=== PATIENT | male | born 1975 | race Two or more races ===

== ENCOUNTER → 2021-05-28 10:08 | Outpatient (BNVA) | payer OTHER, SELFPAY | PROVIDERS: PCP Physician Assistant; Visit Provider Psychiatry & Neurology Neurology ==

== ENCOUNTER → 2021-06-02 12:51 | Outpatient (BNVA) | payer OTHER, SELFPAY | PROVIDERS: PCP Physician Assistant; Visit Provider Nurse Practitioner Family | DX: E23.6 Other disorders of pituitary gland (principal); R51.9 Headache, unspecified; G89.29 Other chronic pain; R06.83 Snoring; R40.0 Somnolence; I10 Essential (primary) hypertension; E78.00 Pure hypercholesterolemia, unspecified; B20 Human immunodeficiency virus [HIV] disease; F41.8 Other specified anxiety disorders; Z68.32 Body mass index [BMI] 32.0-32.9, adult; Z79.899 Other long term (current) drug therapy | CPT/HCPCS: 99202 ==

== ENCOUNTER → 2021-06-28 08:42 | Outpatient (REF) | payer OTHER, SELFPAY | LOC: HO.SL 08:42 | PROVIDERS: PCP Physician Assistant; Visit Provider Nurse Practitioner Family | DX: Z13.89 Encounter for screening for other disorder (principal) ==

== ENCOUNTER → 2021-08-19 09:40 | Outpatient (REF) | payer OTHER, SELFPAY | LOC: HO.SL 09:40 | PROVIDERS: PCP Physician Assistant; Visit Provider Nurse Practitioner Family | DX: R06.83 Snoring (principal); R40.0 Somnolence | CPT/HCPCS: 95806 ==

== ENCOUNTER → 2022-06-06 08:45 | Outpatient (BNVA) | payer OTHER, SELFPAY | PROVIDERS: PCP Physician Assistant; Visit Provider Nurse Practitioner Family | DX: E23.6 Other disorders of pituitary gland (principal); R51.9 Headache, unspecified; G89.29 Other chronic pain | CPT/HCPCS: 99212 ==

== ENCOUNTER 2022-11-29 08:44 | Outpatient (AMB) | payer MEDICAID, SELFPAY ==
--- NOTE | 2022-11-29 08:47 | A.OFFVIS_ITS ---
Intake Vital Signs 11/29/22 08:50 Weight 214 lb 4 oz BP 130/62 Blood Pressure Location Rt brachial Position Sitting Pulse 83 Pulse Source Pulse Oximeter Pulse Oximetry (%) 96 Oxygen Delivery Method Room Air Intake Visit Reasons: Follow up Intake Note: F/U Pituitary Nodules Water Resource Project Manager Required: Yes Water Resource Project Manager Name: Shaunna Valera Allergies No Known Allergies Allergy (Verified 11/29/22 08:48) HPI HPI Comments History of Present Illness Details 47 y/o male patient presents for follow up visit for pituitary gland cyst headache and sleep study. MRI of brain w+wo contrast on 03/25/21 revealed 1 cm complex cystic lesion in the left upper sella/suprasellar cistern, inseparable from the infundibulum and superior aspect of the pituitary gland, unchanged in size since 09/08/20. Pt's repeat brain MRI is scheduled on 12/01/22. Pt reports he still has occipital pressure headache but the frequency has improved to 1-2 /week and it is more manageable. He takes gabapentin 300 mg BID, and also takes Tylenol 500mg, 4 tabs a day to manage his joint pain. He has occasional blurry vision and nausea but they are not associated with headache. He had a left eye catarlact surgery done, but his blurred vision has not improved, stating that his left eye is more blurry. The home sleep study result was reviewed. The total AHI was 3 and oxygen philip was 80%. He states that he could not sleep well during the sleep study, wakes up frequently. PSG sleep study scheduled but [place] was in [place]. He did not reschedule for sleep study yet. Pt denies weakness, feeling cold, or voiding problems.?? PFSH Medical History Anxiety Asthma Depressed Gout High blood pressure High cholesterol HIV (human immunodeficiency virus infection) Pain aggravated by anxiety Surgical History H/O foot surgery Family History Sister Colon cancer Intestines cancer Social History (Updated 11/29/22 @ 08:50 by Zena Castañeda CMA) Alcohol intake: current Patient Tobacco Use Status: Never used Tobacco Review of Systems Const All systems reviewed & are unremarkable except as noted in HPI and below Physical Exam Vital Signs: Last Vital Signs Pulse 83 11/29/22 08:50 BP 130/62 11/29/22 08:50 Pulse Ox 96 11/29/22 08:50 Oxygen Delivery Method Room Air 11/29/22 08:50 Const General: cooperative and no acute distress Nutritional Appearance: obese Orientation/consciousness: patient oriented x3 Limitations: language barrier (kosovan speaking only) HEENT Head: Yes normocephalic Throat: Yes other (mallampati score 4) Eyes Pupils: Equal, round and reactive pupils present EOM: EOMs intact bilaterally Neck Neck: Yes full ROM and Yes other Resp Effort & Inspection: normal respiratory effort and able to speak in complete sentences Auscultation: clear to auscultation bilaterally Neuro General: patient oriented x3 and deep tendon reflexes 2+ bilaterally Cranial nerves: Yes CN's II-XII intact bilaterally and Yes Equal, round and reactive pupils present Cognition (Neuro): normal cognition Gait exam (Neuro): Normal gait present Motor exam (neuro): 5/5 motor strength present throughout, Pronator motor function not present and no tremor noted Coordination: [id number] test normal Extrem Left upper extremity: shoulder/upper arm (Left shoulder muscle tightness ) Psych Appearance: grossly normal Mental Status: mental status grossly normal Speech and movement: Normal speech and movement present Affect: normal affect Assessment & Plan Assessment & Plan (1) Other disorders of pituitary gland: Comment: Pituitary cyst. MRI of brain w+wo contrast on 03/25/21 at [facility]. 1 cm complex cystic lesion in the left upper sella/suprasella cistern, inseparable from the infundibulum and superior aspect of the pituitary gland. Code(s): E23.6 - Other disorders of pituitary gland (2) Chronic headache: Code(s): R51.9 - Headache, unspecified; G89.29 - Other chronic pain Plan Advised patient to take gabapentin 300 mg BID, and reduce Tylenol use. Advised patient to try heating pad for arthritic pain. Track headache frequency and intensity. Advised patient to reschdule lab sleep study to assess sleep apnea. Encouraged patient to increase physical activity. Will repeat brain MRI to monitor the pituitary cyst. Orders: Orders MR head/brain wo/w con Today E23.6 - Other disorders of pituitary gland Medications: Changed From gabapentin 300 mg PO BID 60 caps 2RF To gabapentin 300 mg PO BID 30 days 60 caps 2RF Coding Level of Care Code Est Pt Level 3 (21170) Diagnoses Other disorders of pituitary gland E23.6 Chronic headache R51.9; G89.29
[2022-11-29 08:50] VITALS: BP 130/62; PULSE 83; O2SAT 96
== END 2022-11-29 09:22 | disposition home or self-care (01) ==
PROVIDERS: PCP Physician Assistant; Visit Provider Nurse Practitioner Family
DX: E23.6 Other disorders of pituitary gland (principal); R51.9 Headache, unspecified; G89.29 Other chronic pain
CPT/HCPCS: 99213

== ENCOUNTER → 2022-11-29 08:44 | Outpatient (BNVA) | payer MEDICAID, SELFPAY | PROVIDERS: PCP Physician Assistant; Visit Provider Nurse Practitioner Family | DX: E23.6 Other disorders of pituitary gland (principal); G89.29 Other chronic pain; R51.9 Headache, unspecified | CPT/HCPCS: 99212; 99213 ==

== ENCOUNTER 2023-09-14 10:11 | Outpatient (AMB) | payer MEDICAID, SELFPAY ==
--- NOTE | 2023-09-14 10:23 | A.OFFVIS_ITS ---
Vital Signs 09/14/23 10:24 Weight 212 lb BP 118/72 Blood Pressure Location Rt brachial Position Sitting Pulse 69 Pulse Source Pulse Oximeter Pulse Oximetry (%) 98 Oxygen Delivery Method Room Air Intake Visit Reasons: 4 month F/U - Conf Intake Note: Patient presents for 4 month follow up. patient celia having headaches also was schedule for apnea test and couldn;t assist due to family emergency Allergies No Known Allergies Allergy (Verified 09/14/23 10:25) Medication List - Last Reconciled 09/14/23 by CHERYL Kent [id number] 600-50-300 mg (Triumeq) 1 tab PO DAILY acetaminophen mg PO albuterol sulfate 0.63 mg inhalation Q6H albuterol sulfate 90 mcg/actuation (ProAir HFA) 1 inh inhalation QID allopurinol 100 mg PO DAILY alprazolam (Xanax) Take 1 tab of 0.25 mg orally for MRI, may repeat X1. 1 day aripiprazole 2 mg PO BEDTIME baclofen 10 mg PO BEDTIME budesonide-formoterol 80-4.5 mcg/actuation (Symbicort) 1 inh inhalation BID bupropion HCl 75 mg PO TID clonazepam 0.25 mg PO BEDTIME cyclobenzaprine 10 mg PO BEDTIME diclofenac potassium mg PO diclofenac sodium 1% 2 grams topical QID fluticasone propionate 50 mcg/actuation (Allergy Relief (fluticasone)) 1 spray intranasal DAILY gabapentin 300 mg PO BID 30 days ibuprofen 800 mg PO TID lidocaine 1.8% 1 patch topical DAILY loratadine 10 mg PO DAILY loratadine 10 mg PO DAILY losartan 25 mg PO DAILY methocarbamol 500 mg PO BID montelukast (Singulair) 10 mg PO BEDTIME nebivolol 0 mg PO nifedipine 10 mg PO BID omeprazole 10 mg PO DAILY paroxetine HCl 10 mg PO DAILY pravastatin 10 mg PO BEDTIME prednisone mg PO quetiapine 100 mg PO BEDTIME rosuvastatin 10 mg PO BEDTIME tiotropium bromide 2.5 mcg/actuation (Spiriva Respimat) 2 puffs inhalation BEDTIME zolpidem 5 mg PO BEDTIME PRN HPI Comments Details: 48-yr-old male presents for f/u visit. Pt denies any significant interval medical changes. Pt reports he is having about 1 headache per week, maybe less. The headcahe is throbbing in top of head na dpressure in occipital region- denies any asssociated s/s. States gabapentin and Tylenol helps. He has blurry vision, at times worse. He is generally photophobic d/t glaucoma. Denies peripheral vision loss, diplopia or nipple drainage. He is concerned that he is very sleepy and snores. He was not able to do the in- lab sleep study that was ordered d/t a family emergency. 12/01/22, MRI Brain W+W/O Contrast COMPARISON: MRI of 03/25/2021 FINDINGS: SELLA: The pituitary gland is normal in contour and signal. Enhancement is homogeneous with no intrapituitary focal lesion. There is a normal posterior pituitary T1 bright spot. The infundibulum is displaced a nteriorly and superiorly by a suprasellar mass. There is a complex cystic mass with overall appearance in the suprasellar region measuring approximately 10 x 7 x 6 mm, to the left of the midline and inseparable from the infundibulum. The mass is not changed since the prior examination. The mass demonstrates T2 hypointensity and T1 hyperintensity without definite enhancement. The mass is also contacting the inferior margin of the optic chiasm to the left of the midline, unchanged. The previously seen small focus of T2 hyperintensity extending inferiorly into the pituitary gland is not seen on this examination and may be due to slice selection. The optic chiasm, nerves, and tracts are otherwise normal in signal and contour. The hypothalamus demonstrates normal signal. BRAIN and EXTRA-AXIAL SPACES: No significant abnormality of the visualized portions of the brain and extra-axial spaces. EXTRACRANIAL SOFT TISSUES: Visualized portions of the extracranial soft tissues are unremarkable. BONES: Visualized marrow signal is preserved. IMPRESSION: Stable left upper sellar/suprasellar complex cystic mass inseparable from the infundibulum and contacting the most inferior aspect of the optic chiasm. Continued follow-up is recommended. [facility] Medical History Anxiety Asthma Depressed Gout High blood pressure High cholesterol HIV (human immunodeficiency virus infection) Pain aggravated by anxiety Surgical History H/O foot surgery Family History Sister Colon cancer Intestines cancer Social History Alcohol intake: current Patient Tobacco Use Status: Never used Tobacco Physical Exam Vital Signs: Last Vital Signs Pulse 69 09/14/23 10:24 BP 118/72 09/14/23 10:24 Pulse Ox 98 09/14/23 10:24 Oxygen Delivery Method Room Air 09/14/23 10:24 Const General: cooperative and no acute distress Orientation/consciousness: patient oriented x3 Resp Effort & Inspection: normal respiratory effort and able to speak in complete sentences Neuro General: patient oriented x3 Cranial nerves: Yes CN's II-XII intact bilaterally Cognition (Neuro): normal cognition Psych Appearance: grossly normal Mental Status: mental status grossly normal Speech and movement: Normal speech and movement present Affect: normal affect Attitude: cooperative Assessment & Plan Assessment & Plan (1) Other disorders of pituitary gland: Comment: Pituitary cyst. MRI of brain w+wo contrast on 03/25/21 at [facility]. 1 cm complex cystic lesion in the left upper sella/suprasella cistern, inseparable from the infundibulum and superior aspect of the pituitary gland. 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 Pt requests MRI at [facility] under sedation d/t severe anxiety and claustrophobia. Check pituitary lab studies. For headache: Continue Gabapentin 300mg bid. Tylenol prn. For snoring, sleep difficulties and excessive daytime sleepiness: Pt advised to undergo in-lab sleep study. Previous hST was inconclusive. f/u upon reveiw of above and in 6 months or sooner prn. Orders: Orders Free T4 (Free Thyroxine) Today D35.2 - Benign neoplasm of pituitary gland, H53.8 - Other visual disturbances Triiodothyronine T3 Total Today D35.2 - Benign neoplasm of pituitary gland, H53.8 - Other visual disturbances Triiodothyronine T3 Free Today D35.2 - Benign neoplasm of pituitary gland, H53.8 - Other visual disturbances Thyroid Stimulating Hormone Today D35.2 - Benign neoplasm of pituitary gland, H53.8 - Other visual disturbances Testosterone, Free/Total Today D35.2 - Benign neoplasm of pituitary gland, H53.8 - Other visual disturbances Human Growth Hormone Today D35.2 - Benign neoplasm of pituitary gland, H53.8 - Other visual disturbances IGF-1 (Somatomedin C) Today D35.2 - Benign neoplasm of pituitary gland, H53.8 - Other visual disturbances Adrenocorticotropic Hormone Today D35.2 - Benign neoplasm of pituitary gland, H53.8 - Other visual disturbances Lutenizing Hormone Today D35.2 - Benign neoplasm of pituitary gland, H53.8 - Other visual disturbances Follicle Stimulating Hormone Today D35.2 - Benign neoplasm of pituitary gland, H53.8 - Other visual disturbances Comprehensive Met. Panel Today D35.2 - Benign neoplasm of pituitary gland, H53.8 - Other visual disturbances RT PSG in-lab sleep study Today G47.19 - Other hypersomnia, G47.9 - Sleep disorder, unspecified, R06.83 - Snoring MR head/brain wo/w con Today E23.6 - Other disorders of pituitary gland, H53.8 - Other visual disturbances Prolactin Today D35.2 - Benign neoplasm of pituitary gland, H53.8 - Other visual disturbances Estrad Free (Tot Ultra + Free) Today D35.2 - Benign neoplasm of pituitary gland, H53.8 - Other visual disturbances Cortisol Random Today D35.2 - Benign neoplasm of pituitary gland, H53.8 - Other visual disturbances Cortisol, Free 24Hr Urine Today D35.2 - Benign neoplasm of pituitary gland, H53.8 - Other visual disturbances Complete Blood Count Auto Diff Today D35.2 - Benign neoplasm of pituitary gland, H53.8 - Other visual disturbances Coding Level of Care Code Est Pt Level 4 (74587) Diagnoses Other disorders of pituitary gland E23.6 Blurry vision H53.8 Pituitary macroadenoma D35.2 [place] Sleepiness Scale Questions Sitting and reading: moderate chance of dozing Watching TV: moderate chance of dozing Sitting inactive in a theater, movie etc.: moderate chance of dozing As a passenger in a car for an hour without break: slight chance of dozing Lying down in the afternoon when circumstances permit: moderate chance of dozing Sitting and talking to someone: would never doze Sitting quietly after lunch without alcohol: moderate chance of dozing In a car, while stopped for a few minutes in the traffic: would never doze ESS < 10: normal, ESS > 12: pathologic: 11
[2023-09-14 10:24] VITALS: BP 118/72; PULSE 69; O2SAT 98
== END 2023-09-14 11:35 | disposition home or self-care (01) ==
PROVIDERS: PCP Physician Assistant; Visit Provider Nurse Practitioner Family
DX: E23.6 Other disorders of pituitary gland (principal); H53.8 Other visual disturbances; D35.2 Benign neoplasm of pituitary gland
CPT/HCPCS: 99214

== ENCOUNTER → 2023-09-14 10:11 | Outpatient (BNVA) | payer MEDICAID, SELFPAY | PROVIDERS: PCP Physician Assistant; Visit Provider Nurse Practitioner Family | DX: E23.6 Other disorders of pituitary gland (principal); H53.8 Other visual disturbances; D35.2 Benign neoplasm of pituitary gland | CPT/HCPCS: 99212 ==

== ENCOUNTER 2023-09-14 11:49 | Outpatient (REF) | payer MEDICAID, SELFPAY ==
[2023-09-14 14:28] LABS: MANUAL DIFF FLAG NO
[2023-09-14 14:53] LABS: Basophils Absolute Auto 0.1 X10*3/uL (0.0-0.2); Basophils Percent Auto 0.7 % (0-2); Eosinophils Absolute Auto 0.3 X10*3/uL (0.0-0.4); Eosinophils Percent Auto 3.8 % (0-4); Hematocrit 40.4 % (42.0-52.0); Hemoglobin 14.3 g/dl (14.0-18.0); Imm Gran Abs Auto 0.04 X10*3/uL (0.00-0.03); Imm Gran Pct Auto 0.5 % (0.0-0.4); Lymphocytes Absolute Auto 2.4 X10*3/uL (1.2-4.9); Mean Corpuscular HGB Conc 35.4 g/dl (31.0-36.0); Mean Corpuscular Hemoglobin 32.3 pg (27.0-33.0); Mean Corpuscular Volume 91.2 fL (80.0-98.0); Mean Platelet Volume 9.4 fL (9.4-12.4); Monocytes Absolute Auto 0.5 X10*3/uL (0.1-1.2); Monocytes Percent Auto 6.1 % (2-11); NRBC Pct Auto 0.3 /100WBC (0.0-0.2); Neutrophils Absolute Auto 4.1 x10*3/uL (2.0-8.3); Neutrophils Percent Auto 55.9 % (45-73); Platelet Count 254 X10*3/uL (160-400); Red Blood Count 4.43 X10*6/uL (4.60-5.80); Red Cell Distribution Width 12.1 % (11.0-16.0); White Blood Count 7.3 X10*3/uL (4.8-10.8)
[2023-09-14 15:04] LABS: Alanine Aminotransferase 30 U/L (0-40); Albumin Level 4.3 g/dL (3.5-5.0); Alkaline Phosphatase 63 U/L (39-117); Anion Gap 11 (12-20); Aspartate Amino Transferase 32 U/L (5-37); Bilirubin Total 0.4 mg/dL (0.0-1.0); Blood Urea Nitrogen 11 mg/dL (9-16); Calcium 9.4 mg/dL (8.4-10.2); Carbon Dioxide 27 mmol/L (22-29); Chloride 106 mmol/L (96-108); Estimated Glomerular Filt Rate > 60; Glucose Random 100 mg/dL (60-115); Sodium 140 mmol/L (135-145); Total Protein 7.6 g/dL (6.5-8.0)
[2023-09-14 15:17] LABS: Free T4 (Free Thyroxine) 0.89 ng/dL (0.71-1.85); Thyroid Stimulating Hormone 0.62 uIU/mL (0.32-4.0)
[2023-09-15 07:34] LABS: Triiodothyronine T3 Free 3.3 pg/mL (2.3-4.2); Triiodothyronine T3 Total 102 ng/dL (76-181)
[2023-09-15 08:48] LABS: Follicle Stimulating Hormone 14.1 mIU/mL (1.4-12.8); Lutenizing Hormone 8.6 mIU/mL (1.5-9.3); Prolactin 6.4 ng/mL (2.0-18.0)
[2023-09-15 17:44] LABS: Human Growth Hormone 0.1 ng/mL (< OR = 7.1)
[2023-09-20 17:43] LABS: Testosterone, Free 65.4 pg/mL (35.0-155.0); Testosterone, Total 515 ng/dL (250-1100)
[2023-09-21 13:48] LABS: IGF-1 (Somatomedin C) 66 ng/mL (50-317); IGF-1 Z Score (Male) -1.5 SD (-2.0 - +2.0)
[2023-09-24 00:24] LABS: Estradiol Free 0.56 pg/mL; Estradiol, Ultrasensitive 29 pg/mL (< OR = 29)
== END 2023-09-14 11:50 | disposition home or self-care (01) ==
LOC: HO.HKASLDS 11:49
PROVIDERS: Visit Provider Nurse Practitioner Family
DX: D35.2 Benign neoplasm of pituitary gland (principal); E23.6 Other disorders of pituitary gland; H53.8 Other visual disturbances; G47.19 Other hypersomnia; R06.83 Snoring
CPT/HCPCS: 36415; 80053; 82533; 82670; 82681; 83001; 83002; 83003; 84146; 84305; 84402; 84403; 84439; 84443; 84480; 84481; 85025; 99212

== ENCOUNTER 2023-09-21 07:47 | Outpatient (REF) | payer MEDICAID, SELFPAY ==
[2023-09-28 18:09] LABS: Cortisol Free, 24 Hr Urine 8.6 mcg/24 h (4.0-50.0); Creatinine, 24 Hr Urine 1.81 g/24 h (0.50-2.15); Total Volume, 24 Hr Urine 1400 mL
== END 2023-09-21 07:48 | disposition home or self-care (01) ==
LOC: HO.HKASLDS 07:47
PROVIDERS: Visit Provider Nurse Practitioner Family
DX: D35.2 Benign neoplasm of pituitary gland (principal); H53.8 Other visual disturbances
CPT/HCPCS: 82530

== ENCOUNTER 2023-09-21 10:44 | Outpatient (REF) | payer MEDICAID, SELFPAY | END 2023-09-21 10:45 | disposition home or self-care (01) | LOC: HO.LAB 10:44 | PROVIDERS: Visit Provider Nurse Practitioner Family | DX: Z13.89 Encounter for screening for other disorder (principal) ==

== ENCOUNTER 2023-09-22 08:42 | Outpatient (REF) | payer MEDICAID, SELFPAY ==
[2023-09-26 13:09] LABS: Adrenocorticotropic Hormone 24 pg/mL (6-50)
== END 2023-09-22 08:43 | disposition home or self-care (01) ==
LOC: HO.LAB 08:42
PROVIDERS: PCP Physician Assistant; Visit Provider Nurse Practitioner Family
DX: D35.2 Benign neoplasm of pituitary gland (principal); H53.8 Other visual disturbances
CPT/HCPCS: 36415; 82024

== ENCOUNTER 2023-11-09 09:47 | Outpatient (AMB) | payer MEDICAID, SELFPAY ==
[2023-11-09 10:07] VITALS: BP 122/80; PULSE 69; BMI 31.5
--- NOTE | 2023-11-09 10:07 | MHC.OFFVIS ---
Vital Signs 11/09/23 10:07 Height 5 ft 9 in Weight 213 lb 10.047 oz BMI 31.5 BP 122/80 Blood Pressure Location Lt brachial Position Sitting Pulse 69 Pulse Source Pulse Oximeter Intake Visit Reasons: Other disorders of pituitary gland Intake Note: Patient present today for other disorder of pituitary gland follow up visit. Tobacco Sprayer Required: Yes Tobacco Sprayer Language: Director Of Patient Financial Services Services: Tobacco Sprayer Present Tobacco Sprayer Name: Nahid Information Interpreted: non-clinical & clinical Accompanied by: Self / Same As Patient Allergies No Known Allergies Allergy (Verified 11/09/23 10:14) HPI Comments Details: This is a 48-year-old male send to endocrinology for 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 The patient had MRI performed which showed a 10 X 6 x 7 mm pituitary adenoma. Present for 3 yrs . He had an extensive biochemical workup which showed normal prolactin, normal IGF-1, normal thyroid function studies, normal 24 hour urine for free cortisol. He admits to blurry vision and loss of vision . He admits to headaches. Denies sx of acromegaly or [place]'s . No sx of adrenal insufficency . [facility] Medical History Anxiety Asthma Depressed Gout High blood pressure High cholesterol HIV (human immunodeficiency virus infection) Pain aggravated by anxiety Surgical History H/O foot surgery Family History Sister Colon cancer Intestines cancer Social History Alcohol intake: current Patient Tobacco Use Status: Never used Tobacco Physical Exam Vital Signs: Last Vital Signs Pulse 69 11/09/23 10:07 BP 122/80 11/09/23 10:07 BMI result Body Mass Index 31.5 Const Other: There are no acromegalic features present. Thyroid gland is normal size weighs about 15 g. 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 He had a low basal cortisol at 12:00. Adenoma has been present for least 2 years Will have patient do Cortrosyn stimulation test to assess adrenal axis. Will also refer for neurosurgical evaluation at [facility] to see either Dr. Zamora or Dr. Perla Orders: Referrals Neurosurgery Referral D35.2 - Benign neoplasm of pituitary gland Coding Level of Care Code New Pt Level 4 (62779) Diagnoses Pituitary macroadenoma D35.2
== END 2023-11-09 10:45 | disposition home or self-care (01) ==
PROVIDERS: PCP Physician Assistant; Referring Provider Physician Assistant; Visit Provider Internal Medicine Endocrinology, Diabetes & Metabolism
DX: D35.2 Benign neoplasm of pituitary gland (principal)
CPT/HCPCS: 99204

== ENCOUNTER → 2023-11-09 09:47 | Outpatient (BNVA) | payer MEDICAID, SELFPAY | PROVIDERS: PCP Physician Assistant; Visit Provider Internal Medicine Endocrinology, Diabetes & Metabolism | DX: D35.2 Benign neoplasm of pituitary gland (principal) | CPT/HCPCS: 99202 ==

== ENCOUNTER 2024-01-09 10:26 | Outpatient (AMB) | payer MEDICAID, SELFPAY ==
[2024-01-09 10:29] VITALS: BP 130/82; PULSE 55; BMI 32.3
--- NOTE | 2024-01-09 10:29 | MHC.OFFVIS ---
Vital Signs 01/09/24 10:29 Height 5 ft 9 in Weight 218 lb 11.177 oz BMI 32.3 BP 130/82 Blood Pressure Location Lt brachial Position Sitting Pulse 55 Pulse Source Pulse Oximeter Intake Visit Reasons: f/u pituitary adenoma-no vm set up Intake Note: Patient present today for pituitary adenoma office visit. Executive Officer Required: Yes Executive Officer Language: Liner Checker Services: Executive Officer Present Information Interpreted: non-clinical & clinical Accompanied by: Self / Same As Patient Allergies No Known Allergies Allergy (Verified 01/09/24 10:34) HPI Comments Details: This is a 48-year-old male send to endocrinology for 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 The patient had MRI performed which showed a 10 X 6 x 7 mm pituitary adenoma. Present for 3 yrs . He had an extensive biochemical workup which showed normal prolactin, normal IGF-1, normal thyroid function studies, normal 24 hour urine for free cortisol. He admits to blurry vision and loss of vision . He admits to headaches. Denies sx of acromegaly or [place]'s . No sx of adrenal insufficency . Cortrosyn stimulation test recently was normal. Has appt with neurosurgeon tomorrow [facility] Medical History Anxiety Asthma Depressed Gout High blood pressure High cholesterol HIV (human immunodeficiency virus infection) Pain aggravated by anxiety Surgical History H/O foot surgery Family History Sister Colon cancer Intestines cancer Social History Alcohol intake: current Patient Tobacco Use Status: Never used Tobacco Physical Exam Const Other: There are no acromegalic features present. Thyroid gland is normal size weighs about 15 g. 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 . Adenoma has been present for least 2 years. Adrenal axis was normal a Cortrosyn stimulation Will try to obtain notes from neurosurgeon visit tomorrow at [facility] and follow accordingly Coding Level of Care Code Est Pt Level 3 (36219) Diagnoses Pituitary macroadenoma D35.2
== END 2024-01-09 10:48 | disposition home or self-care (01) ==
PROVIDERS: PCP Physician Assistant; Visit Provider Internal Medicine Endocrinology, Diabetes & Metabolism
DX: D35.2 Benign neoplasm of pituitary gland (principal)
CPT/HCPCS: 99213

== ENCOUNTER → 2024-01-09 10:26 | Outpatient (BNVA) | payer MEDICAID, SELFPAY | PROVIDERS: PCP Physician Assistant; Visit Provider Internal Medicine Endocrinology, Diabetes & Metabolism | DX: D35.2 Benign neoplasm of pituitary gland (principal) | CPT/HCPCS: 99212 ==

== ENCOUNTER 2024-04-11 10:02 | Outpatient (AMB) | payer MEDICAID, SELFPAY ==
[2024-04-11 10:11] VITALS: BP 130/82; PULSE 80; O2SAT 95; BMI 33.1
--- NOTE | 2024-04-11 10:11 | MHC.OFFVIS ---
Vital Signs 04/11/24 10:11 Height 5 ft 9 in Weight 224 lb BMI 33.1 BP 130/82 Blood Pressure Location Rt brachial Position Sitting Pulse 80 Pulse Source Pulse Oximeter Pulse Oximetry (%) 95 Oxygen Delivery Method Room Air Intake Visit Reasons: 7 month f/u Detasseler Required: Yes Detasseler Services: Detasseler Offered & Declined (Shaunna Du) Accompanied by: Self / Same As Patient Allergies No Known Allergies Allergy (Verified 04/11/24 10:14) Medication List - Last Reconciled 04/11/24 by CHERYL Kent kxlonxqu-xksrlqbwuhgp-hlmpsmv 600-50-300 mg (Triumeq) 1 tab PO DAILY acetaminophen mg PO albuterol sulfate 0.63 mg inhalation Q6H albuterol sulfate 90 mcg/actuation (ProAir HFA) 1 inh inhalation QID allopurinol 100 mg PO DAILY alprazolam (Xanax) Take 1 tab of 0.25 mg orally for MRI, may repeat X1. 1 day aripiprazole 2 mg PO BEDTIME baclofen 10 mg PO BEDTIME budesonide-formoterol 80-4.5 mcg/actuation (Symbicort) 1 inh inhalation BID bupropion HCl 75 mg PO TID clonazepam 0.25 mg PO BEDTIME cyclobenzaprine 10 mg PO BEDTIME diclofenac potassium mg PO diclofenac sodium 1% 2 grams topical QID fluticasone propionate 50 mcg/actuation (Allergy Relief (fluticasone)) 1 spray intranasal DAILY gabapentin 300 mg PO BID 30 days ibuprofen 800 mg PO TID lidocaine 1.8% 1 patch topical DAILY loratadine 10 mg PO DAILY losartan 25 mg PO DAILY metformin 500 mg PO BID methocarbamol 500 mg PO BID montelukast (Singulair) 10 mg PO BEDTIME nebivolol 0 mg PO nifedipine 10 mg PO BID omeprazole 10 mg PO DAILY paroxetine HCl 10 mg PO DAILY pravastatin 10 mg PO BEDTIME prednisone mg PO quetiapine 100 mg PO BEDTIME rosuvastatin 10 mg PO BEDTIME tiotropium bromide 2.5 mcg/actuation (Spiriva Respimat) 2 puffs inhalation BEDTIME zolpidem 12 mg PO BEDTIME PRN HPI Comments Details: 48-yr-old male presents for 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 Pt denies any significant interval medical changes. However, in the past 6 months or so, he has days where he just feels overall generally weak from doing his day to day activities. Resting for a while helps for a short time. These episodes are not a/w worsening headaches or pain. Denies dizziness or lightheadedness. He states he has had his sugars checked and this was WNL. He does have very mild sleep apnea, per [facility] pulmonology note, in-lab sleep study showed AHI 5.1 per hour. Though, more recent HST did not show sleep apnea. He states he did have a more recent in-lab sleep study. He has not been able to tolerate using CPAP, as it caused claustrophobia. Patient states that he had a interval neurosurgery consult at [facility], and they did not advise any surgical interventions. Patient is to continue to follow-up with us and endocrinology. His endocrinology workup was unremarkable. He denies any vision changes, changes in his hand or shoe size, diplopia, or nipple drainage. He is generally photophobic d/t glaucoma. Pt reports he has a daily low grade headache that comes and goes- rest helps. The headache is throbbing in top of head or a pain running over right side of head- denies any associated s/s. Not having the occipital pressure headache. States gabapentin made him dizzy so when he takes it, he takes it as 600mg qhs- not using everyday. Using Tylenol prn- helps some. 10/26/2023, MRI Brain and Pituitary W+ W/O Contrast: IMPRESSION: Unchanged 1 cm nonenhancing complex cystic lesion in the left superior sella/suprasellar cistern, inseparable from the infundibulum and superior aspect of the pituitary gland. Differential considerations again include proteinaceous or hemorrhagic Rathke's cleft cyst or cystic pituitary adenoma. Suggest continued follow-up. 12/01/22, MRI Brain W+W/O Contrast COMPARISON: MRI of 03/25/2021 FINDINGS: SELLA: The pituitary gland is normal in contour and signal. Enhancement is homogeneous with no intrapituitary focal lesion. There is a normal posterior pituitary T1 bright spot. The infundibulum is displaced anteriorly and superiorly by a suprasellar mass. There is a complex cystic mass with overall appearance in the suprasellar region measuring approximately 10 x 7 x 6 mm, to the left of the midline and inseparable from the infundibulum. The mass is not changed since the prior examination. The mass demonstrates T2 hypointensity and T1 hyperintensity without definite enhancement. The mass is also contacting the inferior margin of the optic chiasm to the left of the midline, unchanged. The previously seen small focus of T2 hyperintensity extending inferiorly into the pituitary gland is not seen on this examination and may be due to slice selection. The optic chiasm, nerves, and tracts are otherwise normal in signal and contour. The hypothalamus demonstrates normal signal. BRAIN and EXTRA-AXIAL SPACES: No significant abnormality of the visualized portions of the brain and extra-axial spaces. EXTRACRANIAL SOFT TISSUES: Visualized portions of the extracranial soft tissues are unremarkable. BONES: Visualized marrow signal is preserved. IMPRESSION: Stable left upper sellar/suprasellar complex cystic mass inseparable from the infundibulum and contacting the most inferior aspect of the optic chiasm. Continued follow-up is recommended. [facility] Medical History Anxiety Asthma Depressed Gout High blood pressure High cholesterol HIV (human immunodeficiency virus infection) Pain aggravated by anxiety Surgical History H/O foot surgery Family History Sister Colon cancer Intestines cancer Social History Alcohol intake: current Patient Tobacco Use Status: Never used Tobacco Physical Exam Vital Signs: Last Vital Signs Pulse 80 04/11/24 10:11 BP 130/82 04/11/24 10:11 Pulse Ox 95 04/11/24 10:11 Oxygen Delivery Method Room Air 04/11/24 10:11 BMI result Body Mass Index 33.1 Const General: cooperative and no acute distress Orientation/consciousness: patient oriented x3 Resp Effort & Inspection: normal respiratory effort and able to speak in complete sentences Neuro General: patient oriented x3 Cranial nerves: Yes CN's II-XII intact bilaterally Cognition (Neuro): normal cognition Psych Appearance: grossly normal Mental Status: mental status grossly normal Speech and movement: Normal speech and movement present Affect: normal affect Attitude: cooperative Assessment & Plan Assessment & Plan (1) Other disorders of pituitary gland: Comment: Pituitary cyst. MRI of brain w+wo contrast on 03/25/21 at [facility]. 1 cm complex cystic lesion in the left upper sella/suprasella cistern, inseparable from the infundibulum and superior aspect of the pituitary gland. Code(s): E23.6 - Other disorders of pituitary gland Category: Medical (2) Blurry vision: Code(s): H53.8 - Other visual disturbances Category: Medical (3) Pituitary macroadenoma: Code(s): D35.2 - Benign neoplasm of pituitary gland Category: Medical Plan For suprasellar mass- Follow-up with Endocrinology as scheduled. I was unable to access neurosurgery consult report- we will request. Will order f/u brain MRI and pituitary w/wo at his follow-up appointment- due October 2024. Pt requests MRI at [facility] under sedation d/t severe anxiety and claustrophobia. For headache: Trial taking Gabapentin 600 mg q.h.s. more regularly in hopes this decreases frequency of headache. Tylenol prn. For snoring, sleep difficulties and excessive daytime sleepiness: Check vitamin-D level. We will request most recent sleep study reports from [facility]. If within normal limits, consider ENT consult. f/u upon review of above and in 6 months or sooner prn. Orders: Orders Vitamin D 25-OH (D2 and D3) Today G89.29 - Other chronic pain, M25.50 - Pain in unspecified joint, R51.9 - Headache, unspecified, R53.83 - Other fatigue Medications: Changed From gabapentin 300 mg PO BID 30 days 60 caps 2RF To gabapentin 600 mg (2 x 300 mg) PO BEDTIME 30 days 60 caps 6RF Coding Level of Care Code Est Pt Level 4 (73904) Diagnoses Other disorders of pituitary gland E23.6 Blurry vision H53.8 Pituitary macroadenoma D35.2
== END 2024-04-11 11:15 | disposition home or self-care (01) ==
PROVIDERS: PCP Physician Assistant; Visit Provider Nurse Practitioner Family
DX: E23.6 Other disorders of pituitary gland (principal); H53.8 Other visual disturbances; D35.2 Benign neoplasm of pituitary gland
CPT/HCPCS: 99214

== ENCOUNTER 2024-04-11 10:02 | Outpatient (REF) | payer MEDICAID, SELFPAY | END 2024-04-11 10:03 | disposition home or self-care (01) | LOC: HO.HKASLDS 10:02 | PROVIDERS: PCP Physician Assistant; Visit Provider Nurse Practitioner Family | DX: E23.6 Other disorders of pituitary gland (principal); R51.9 Headache, unspecified; M25.50 Pain in unspecified joint; R53.83 Other fatigue; G89.29 Other chronic pain; Z79.899 Other long term (current) drug therapy | CPT/HCPCS: 36415; 82306; 99212 ==

== ENCOUNTER 2024-05-07 10:45 | Outpatient (REF) | payer MEDICAID, SELFPAY ==
--- OUTSIDE RECORDS SUMMARY | 2024-05-07 11:37 | XMS_ITS | Encounter Summary ---
Author Organization [facility] Address [address] [place] [address] Care Team Providers Care Survey Manager Name Role Phone Sierra Reinoso PA-C Primary Care Provider [phone] Encounter Details Date Type Department Care Team (Late st Contact Info) Description 01/17/2024 Patient Outreach [facility] [address] [place] [address] Kory Garcia, Community Health Worker [address] [place] [phone] Social History Tobacco Use Types Packs/Day Years Used Date Smoking Tobacco: Former Cigarettes 1 29.8 S tarted: 08/02/1994 Smokeless Tobacco: Former Quit: 05/26/2002 Alcohol Use Standard Drinks/Week Comments Yes 15 (1 standard drink = 0.6 oz pure alcohol) Drinks 15 beers on the only/ Occasional as will Social Connections Answer Date Recorded Connectedness 2 11/29/2023 Financial Resource Strain Answer Date R ecorded Financial Resource Strain 2 2023 Stress Answer Date Recorded Stress 2 11/29/2023 Physical Activity Answer Date Recorded Physical Activity 0 12/27/2019 Food Insecurity Answer Date Recorded Food 2 11/29/2023 Transportation Needs Answer Date Record ed Transportation 1 11/29/2023 Housing Stability Answer Date Recorded Housing 1 11/29/2023 Safety and Environment Answer Date Sarthak rded Safety 0 12/22/2022 Utilities Answer Date Recorded Utilities 2 11/29/2023 Employment Answer Date Recorded Stress 0 12/27/2019 Sex and Gender Information Value Date Recorded Sex Assigned at Male 01/15/2017 7:36 PM PDT Legal Sex Male 12:56 PM PST Gender Identity Male 01/15/2017 7:36 PM PDT Sexual Orientation Owens 06/09/2022 6: 58 AM PST COVID-19 Exposure Response Date Recorded In the last 10 days, have yo u been in contact with someone who was confirmed or suspected to have Coronavirus/COVID-19? No / Unsure 01/17/2024 12:45 PM EDT documented as of this encounter Plan of Treatment Upcoming Encounters Date Type Department Care Team (Late st Contact Info) Description 05/10/2024 10:20 AM EST Office Visit [address] [phone] Roya Eaton PA-C [address] [place] [phone] 05/17/2024 10:00 AM EST Office Visit [address] [phone] Rell Dennison, PharmD [address] [place] [phone] Kory Garcia, Community Health Worker [address] [place] [phone] 07/18/2024 9:00 AM EDT Office Visit [facility] [address] [place] [phone] [address] [address] documented as of this encounter Visit Diagnoses Not on filedocumented in this encounter Additional Health Concerns Assessment Noted Time PHQ-9 Depression Total Score: 14 024 9:08 AM PDT documented as of this encounter Care Teams Survey Manager Relationship Specialty Start Date End Date Sierra Reinoso PA-C [address] [place] [phone] PCP - General Internal Medicine 05/04/20 documented as of this encounter
--- OUTSIDE RECORDS SUMMARY | 2024-05-07 11:37 | XMS_ITS | Encounter Summary ---
Author Organization [facility] Address [address] [place] [address] Care Team Providers Care Call Center Supervisor Name Role Phone Sierra Reinoso PA-C Primary Care Provider + [phone] Reason for Referral * Orthopedics (Routine) - Pending Review Specialty Diagnoses / Procedures Referred By Sean rosenbaum Referred To Contact Diagnoses Acute pain of left shoulder Chronic left shoulder pain Juno Yates PA-C [address] [place] [address] Phone: tel: fax: [facility], [place] [address] [place], [place] Phone: tel: fax: Referral ID Status Reason Start Date Expiration Date Visits Requested Visits Authorized [id number] Pending Review Specialty Services Required 04/15/2024 04/15/2025 1 1 Question Answer What is your specific consult question for the specialist? acute on chronic left shoulder pain. steroid injection please. Speaks kittitian Comments left sided shoulder pain. This is an acute on chronic problem. He admits he has had problems with his neck and shoulder in the past. He has had problems with his neck and shoulder for about 9 years. He has had multiple injections into his left shoulder in the past without relief... He reports that yesterday he suffered a fall, landing primarily on his left shoulder. He reports that he he fell from the bed and landed on the anterior portion of his left shoulder. Tried Flexaril, Tylenol, Ibuprofen, Diclofenac and Gabapentin without much relief. He has also been to PT in the past for his shoulder without much relief. Encounter Details Date Type Department Care Team (Late st Contact Info) Description 04/15/2024 9:40 AM EST Office Visit [facility] [address] [place] [phone] Trudy SLICK Fraire [address] [place] [address] Kirill Robb [address] [place] [address] Acute pain of left shoulder (Primary Dx); Chronic left shoulder pain; Non-Botswanan speaking patient Social History Tobacco Use Types Packs/Day Years [...] suspected to have Coronavirus/COVID-19? No / Unsure 04/15/2024 8:33 AM EST documented as of this encounter Last Filed Vital Signs Vital Sign Reading Time Taken Comments Blood Pressure 146/88 04/15/2024 8:46 AM EST Pulse 78 04/15/2024 8:46 AM EST Temperature 36.6 ??C (97.9 ??F) 04/15/2024 8:46 AM ES T Respiratory Rate 16 04/15/2024 8:46 AM EST Oxygen Saturation - - Inhaled Oxygen Concentration - - Weight 103 kg (227 lb) 04/15/2024 8:46 AM EST Height - - Body Mass Index 33.52 03/15/2024 1:05 PM EST documented in this encounter Progress Notes * Juno Yates PA-C - 04/15/2024 8:50 AM EST Subjective: CC: left sided shoulder pain Garment Sorter: amandeep Roy HPI: Alden Khalil is a 48 year old male patient who presents as walk-in to urgent care for evaluation of left sided shoulder pain. This is an acute on chronic problem. He admits he has had problems with his neck and shoulder in the past. He has had problems with his neck and shoulder for about 9 years.He has had multiple injections into his left shoulder in the past without relief... He reports that yesterday he suffered a fall, landing primarily on his left shoulder. He reports that he he fell from the bed and landed on the anterior portion of his left shoulder. Tried Flexaril, Tylenol, Ibuprofen, Diclofenac and Gabapentin without much relief. He has also been to PT in the past for his shoulder without much relief. No Known Allergies Patient Active Problem List Diagnosis HIV (human immunodeficiency virus infection) ([facility]) Asthma Essential hypertension GERD (gastroesophageal reflux disease) Syphilis, latent Abnormal anal Papanicolaou smear Low back pain - Lumbar nerve root impingement S1 via MRI 07/19/17 Class 1 obesity due to excess calories with serious comorbidity and body mass index (BMI) of 32.0 to 32.9 in adult Major depressive disorder, recurrent episode with anxious distress ([facility]) Chest pain Gout Samantha esophagitis ([facility]) H/O colonoscopy External hemorrhoids Hallux valgus of right foot Neck pain Pituitary mass ([facility]) Prediabetes Glaucoma of both eyes Umbilical hernia without obstruction and without gangrene Current Outpatient Medications: cyclobenzaprine (FLEXERIL) 10 mg tablet, EMILIA 1 TABLETA POR LA BOCA NICO VECES AL ALCIDES RUDDY SEA NECESARIO PARA ESPASMOS MUSCULARES, Disp: 90 Tablet, Rfl: 0 diclofenac sodium (VOLTAREN) 1 % gel, APLICAR TOPICAMENTE 2 VECES ALL ALCIDES A LA RODILLA DERECHA O PARA LA ESPALDA, Disp: 100 g, Rfl: 0 loratadine (CLARITIN) 10 mg tablet, EMILIA 1 TABLETA POR LA BOCA TODAS LAS NOCHES, Disp: 90 Tablet, Rfl: 1 nebivoloL (BYSTOLIC) 5 mg tablet, TAKE 1 TABLET BY MOUTH ONCE DAILY FOR 180 DAYS, Disp: 90 Tablet, Rfl: 1 albuterol (PROVENTIL) 2.5 mg /3 mL (0.083 %) nebulizer solution, , Disp: , Rfl: clonazePAM (KLONOPIN) 1 mg tablet, Take 1 Tablet by mouth 3 (three) times daily as needed for anxiety (Prescribed by psychiatrist), Disp: , Rfl: oxyCODONE (ROXICODONE) 5 mg tablet, , Disp: , Rfl: tadalafiL (CIALIS) 10 mg tablet, , Disp: , Rfl: zolpidem (AMBIEN CR) 12.5 mg CR tablet, Take 12.5 mg by mouth nightly at bedtime as needed (Prescribed by psych), Disp: , Rfl: acetaminophen (TYLENOL) 325 mg tablet, TAKE 2 TABLETS BY MOUTH EVERY 6 HOURS NEEDED FOR PAIN (MILD TO MODERATE PAIN) FOR UP TO 10 DAYS., Disp: 80 Tablet, Rfl: 3 ibuprofen 800 mg tablet, EMILIA 1 TABLETA POR LA BOCA NICO VECES AL ALCIDES RUDDY SEA NECESARIO, Disp: 90Tablet, Rfl: 3 meclizine (ANTIVERT) 25 mg tablet, EMILIA 1 TABLETA POR LA BOCA 2 VECES AL ALCIDES RUDDY SEA NECESARIO PARA DIZZINESS, Disp: 20 Tablet, Rfl: 0 CARAFATE 100 mg/mL suspension, Prescribed by [facility], Disp: , Rfl: clotrimazole (LOTRIMIN) 1 % cream, , Disp: , Rfl: lithium carbonate 300 mg capsule, Take 300 mg by mouth 2 (two) times daily (Prescribed by Dr. Mcleod - psych), Disp: , Rfl: pantoprazole (PROTONIX) 40 mg EC tablet, Take 40 mg by mouth 2 (two) times daily (Prescribed by [facility]), Disp: , Rfl: DEEP SEA NASAL 0.65 % nasal spray, PLACE 1 SPRAY INTO THE NOSTRIL(S) NEEDED FOR CONGESTION, Disp: 44 mL, Rfl: 4 fluticasone (FLONASE) 50 mcg/actuation nasal spray, COLOQUE 1 SPRAY EN AMBOS FOSAS NASALES JASEN SEA NECESARIO PARA RINITIS, Disp: 16 g, Rfl: 0 allopurinoL (ZYLOPRIM) 100 mg tablet, EMILIA 1 TABLETA POR LA BOCA ZI VEZ ALL ALCIDES, Disp: 90 Tablet,Rfl: 0 alcohol swabs, Clean are before checking sugar at home,, Disp: 100 Each, Rfl: 1 blood sugar diagnostic strips, 1 Each daily. Freestyle lite strips to check sugar daily., Disp: 100Each, Rfl: 3 blood-glucose meter monitoring kit, daily. Freestyle lite glucose monitor to check sugar daily., Disp: 1 Each, Rfl: 0 lancets, daily. Lancets to check sugar level daily., Disp: 100 Each, Rfl: 3 losartan-hydrochlorothiazide (HYZAAR) 50-12.5 mg per tablet, EMILIA 1 TABLETA POR LA BOCA ZI VEZ ALDIA, Disp: 90 Tablet, Rfl: 1 montelukast (SINGULAIR) 10 mg tablet, [facility] 1 tableta por vIa oral todas las noches antes de acostarse, Disp: 90 Tablet, Rfl: 0 lidocaine (LIDODERM) 5 % patch, APPLY 1 PATCH ONTO THE SKIN FOR 12 HOURS ON AND THEN LEAVE OFF FOR 12 HOURS, Disp: 90 Patch, Rfl: 1 SPIRIVA WITH HANDIHALER 18 mcg capsule for inhaler, INHALAR EL CONTENIDO DE 1 CAPSULA A TRAVES DE HANDIHALER DIARIAMENTE. USAR 2 INHALACIONS DE 1 CAPSULE PARA CADA DOSIS, Disp: 90 Capsule, Rfl: 1 SYMBICORT 160-4.5 mcg/actuation inhaler, USAR 2 INHALACIONS POR LA BOCA 2 VECES AL ALCIDES, Disp: 30.6 g, Rfl: 1 metFORMIN (GLUCOPHAGE) 500 mg tablet, Take 1 Tablet by mouth 2 (two) times daily with a meal For diabetes prevention., Disp: 180 Tablet, Rfl: 0 jxhggmfi-urwhxghkfkmr-iciexeg (TRIUMEQ) 600-50-300 mg tab, Take 1 Tablet by mouth once daily, Disp:30 Tablet, Rfl: 11 NIFEdipine (PROCARDIA XL) 60 mg 24 hr tablet, EMILIA 1 TABLETA POR LA BOCA ZI VEZ AL DIATOMAR 1 TABLETA POR LA BOCA ZI VEZ AL ALCIDES, Disp: 90 Tablet, Rfl: 1 omeprazole (PRILOSEC) [address] capsule, EMILIA 2 CAPSULAS POR LA BOCA POR LA MANANA ANTES DEL DESAYUNO, Disp: 90 Capsule, Rfl: 0 rosuvastatin (CRESTOR) 10 mg tablet, Take 1 Tablet by mouth nightly at bedtime, Disp: 90 Tablet, Rfl: 2 VENTOLIN HFA 90 mcg/actuation inhaler, USAR 2 INHALACIONS POR LA BOCA CADA 4 HORAS CUANDO SEA NECESARIO PARA DIMPLE O RESPIRACION CORTA, Disp: 18 g, Rfl: 2 inhalational spacing device, Use to administer Symbicort, Disp: 1 Each, Rfl: 0 blood pressure monitor, Please check blood pressure at home twice a day. Dx: I10. Need: lifetime, Disp: 1 Kit, Rfl: 0 buPROPion HCL (WELLBUTRIN XL) 300 mg 24 hr tablet, Take 300 mg by mouth once daily, Disp: , Rfl: PARoxetine HCl (PAXIL) 40 mg tablet, PER PSYCH [place], Disp: , Rfl: Review of Systems Remainder ROS: See HPI, systems reviewed and are otherwise negative or noncontributory. Objective: BP (!) 146/88 Pulse 78 Temp 97.9 ??F (36.6 ??C) Resp 16 Wt 227 lb (103 kg) BMI 33.52 kg/m?? Smoking Status Former BSA 2.24 m?? Physical Exam General: NAD, AAOx3 HEENT: Normocephalic, atraumatic. PERRL, EOMI. Lungs: CTA b/l, Moving air without difficulty, CV: RRR, S1S2+, Pulses palpable Neuro: No gross neurological abnormalities noted on exam. Ext: no edema, ROM intact Assessment and Plan: Alden Khalil is a 48 year old male patient who was seen today as a walk-in at urgent care for evaluation of left sided shoulder pain, acute on chronic. M25.512 Acute pain of left shoulder (primary encounter diagnosis) Plan : REFERRAL TO ORTHOPEDICS M25.512,G89.29 Chronic left shoulder pain Plan : REFERRAL TO ORTHOPEDICS Z78.9 Non-Botswanan speaking patient - Garment Sorter: amandeep Roy documented in this encounter Plan of Treatment Upcoming Encounters Date Type Department Care Team (Late st Contact Info) Description 05/10/2024 10:20 AM EST Office Visit [address] [phone] Roya Eaton PA-C [address] [place] [phone] 05/17/2024 10:00 AM EST Office Visit [address] [phone] Rell Dennison PharmD [address] [place] [phone] Kory Garcia, Community Health Worker [address] [place] [phone] 07/18/2024 9:00 AM EDT Office Visit [facility] [address] [place] [phone] [address] [address] Scheduled Referrals Name Type Priority Associated Diagnoses Orde r Schedule REFERRAL TO ORTHOPEDICS Referral Routine Acute pain of left shoulder Chronic left shoulder pain Ordered: 04/15/2024 documented as of this encounter Visit Diagnoses Diagnosis Acute pain of left shoulder- Primary Chronic left shoulder pain Pain in joint, shoulder region Non-Botswanan speaking patient Problems with communication (including speech) documented in this encounter Additional Health Concerns Assessment Noted Time PHQ-9 Depression Total Score: 15 024 9:37 AM PST documented as of this encounter Care Teams Call Center Supervisor Relationship Specialty Start Date End Date Sierra Reinoso PA-C [address] [place] [phone] PCP - General Internal Medicine 05/04/20 documented as of this encounter
--- OUTSIDE RECORDS SUMMARY | 2024-05-07 11:37 | XMS_ITS | Encounter Summary ---
Author Organization [facility] Address [address] [place] [address] Care Team Providers Care Electrical Prospecting Operator Name Role Phone Sierra Reinoso PA-C Primary Care Provider Encounter Details Date Type Department Care Team (Latest Contact Info) Description 04/15/2024 Travel Social History Tobacco Use Types Packs/Day Years [...] AM EST documented as of this encounter Plan of Treatment Upcoming Encounters Date Type Department Care Team (Late st Contact Info) Description 05/10/2024 10:20 AM EST Office Visit [facility] [address] [place] [phone] Roya Eaton PA-C [address] [place] [phone] 05/17/2024 10:00 AM EST Office Visit [address] [phone] Rell Dennison, FlorD [address] [place] [address] Kory Garcia, Community Health Worker [address] [place] [address] 07/18/2024 9:00 AM EDT Office Visit [facility] [address] [place] [phone] [place] [address] documented as of this encounter Visit Diagnoses Not on filedocumented in this encounter Additional Health Concerns Assessment Noted Time PHQ-9 Depression Total Score: 15 024 9:37 AM PST documented as of this encounter Care Teams Electrical Prospecting Operator Relationship Specialty Start Date End Date Sierra Reinoso PA-C [address] [place] [phone] PCP - General Internal Medicine 05/04/20 documented as of this encounter
--- OUTSIDE RECORDS SUMMARY | 2024-05-07 11:38 | XMS_ITS | Clinical Summary ---
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 place a code status order. Do not modify or discontinue any currently active code status orders. Care Teams [employer] Relationship Specialty Start Date End Date [place] Reinoso [place] [address] [place] [address] PCP - General 08/06/21
--- OUTSIDE RECORDS SUMMARY | 2024-05-07 11:38 | XMS_ITS | Encounter Summary ---
Author Organization [employer] Address [address] [place] [address] Care Team Providers Care Home Security Professional Name Role Phone Sierra Reinoso Primary Care Provider Reason for Visit * Auth/Cert (Routine) Specialty Diagnoses / Procedures Referred By Sean t Referred To Contact Diagnoses Umbilical hernia without obstruction or gangrene Umbiical Hernia Procedures [place] REPR ANT ABD HERNIA(S) ANY APPR INIT INCL IMPL < 3 CM REDUCIBLE OPEN REPAIR UMBILICAL HERNIA Destin Vasques DO [address] [address] Referral ID Status Reason Start Date Expiration Date Visits Re quested Visits Authorized [id number] 04/22/2024 1 1 Encounter Details Date Type Department Care Team (Late st Contact Info) Description 05/03/2024 10:30 AM EST - 05/03/2024 12:00 PM EST Surgery [facility] Main OR [address] [place] [id number] Destin Vasques DO [address] [address] OPEN REPAIR UMBILICAL HERNIA [[id number] (CPT??)] Surgery Details Date/Time Status Location OR Service Patient Class Case Cl ass Case Type Trauma Case? 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 1 hr please documented in this encounter Social History Tobacco Use Types Packs/Day Years [...] file Not on file Not on file documented as of this encounter Last Filed Vital Signs Vital Sign Reading Time Taken Comments Blood Pressure 141/80 05/03/2024 11:00 AM EST Pulse 79 05/03/2024 11:00 AM EST Temperature 36.2 ??C (97.2 ??F) 05/03/2024 11:[address] Respiratory Rate 18 05/03/2024 11:00 AM EST Oxygen Saturation 99% 05/03/2024 11:00 AM EST Inhaled Oxygen Concentration - - Weight 98 kg (216 lb) 05/03/2024 8:25 AM EST Height 175.3 cm (5' 9 ) 05/03/2024 8:25 AM EST Body Mass Index 31.9 05/03/2024 8:25 AM EST documented in this encounter Discharge Summaries * Destin Vasques DO - 05/03/2024 9:51 AM EST Please allow the glue to fall off your incisions. Do not lift anything over 15 lbs for next 4-6 weeks. For pain control please take Tylenol 1000 mg every 6 hours and ibuprofen 600 mg every 8 hours. For severe pain you may take oxycodone 5 mg every 6 hours but do not operate machinery or drive on this medication. You may shower but do not soak your incisions. You may take the bandage off your belly button tomorrow 05/04/24. documented in this encounter Discharge Instructions * Attachments The following attachments cannot be sent through Care Everywhere. * Hernia Repair: Post-op ([place]) documented in this encounter Medications at Time of Discharge Medication Sig Dispensed Refills Start Date End Date qewbiwpr-tqnjmafcqmjq-t amiVUDine (Triumeq) 600-50-300 mg per tablet Take 1 tablet by mouth 1 (one) time each day. albuterol HFA (PROAIR HFA ; PROVENTIL HFA ; VENTOLIN HFA) 90 mcg/actuation inhaler 2 puffs every 4 (four) hours if needed for wheezing or shortness of breath. allopurinoL (ZYLOPRIM) 100 mg tablet Take 1 tablet (100 mg total) by mouth 1 (one) time each day. budesonide-formoteroL (SYMBICORT) 160-4.5 mcg/actuation inhaler 2 puffs 1 (one) time each day. 03/17/2023 buPROPion XL (WELLBUTRIN XL) 300 mg 24 hr tablet 1 tablet (300 mg total) 1 (one) time each day. clonazePAM (KlonoPIN) 1 mg tablet Take 1 tablet (1 mg total) by mouth 3 (three) times a day. cyclobenzaprine (FLEXERIL) 10 mg tablet Take 1 tablet (10 mg total) by mouth 2 (two) times a day if needed. 04/10/2023 gabapentin (NEURONTIN) 300 mg capsule Take 1 capsule (300 mg total) by mouth at bedtime. lidocaine (LIDODERM) 5 % patch Place 1 Patch onto the skin every 24 hours. Apply for no more than 12 hours in any 24 hour period. loratadine (CLARITIN) 10 mg tablet Take 1 tablet (10 mg total) by mouth 1 (one) time each day. losartan-hydroCHLOROthi azide (HYZAAR) 50-12.5 mg per tablet Take 1 tablet by mouth 1 (one) time each day. metFORMIN (FORTAMET) 500 mg 24 hr tablet Take 1 tablet (500 mg total) by mouth 2 (two) times a day. Do not crush, chew, or split. montelukast (SINGULAIR) 10 mg tablet Take 1 tablet (10 mg total) by mouth at bedtime. nebivoloL (BYSTOLIC) 5 mg tablet Take 1 tablet (5 mg total) by mouth 1 (one) time each day. NIFEdipine CC (ADALAT CC) 60 mg 24 hr tablet 1 tablet (60 mg total) 1 (one) time each day before breakfast. 08/03/2021 pantoprazole (PROTONIX) 40 mg EC tablet Take 1 tablet (40 mg total) by mouth 2 (two) times a day. Do not crush, chew, or split. PARoxetine (PAXIL) 40 mg tablet 1 tablet (40 mg total) 1 (one) time each day in the morning. rosuvastatin (CRESTOR) 10 mg tablet Take 1 tablet (10 mg total) by mouth 1 (one) time each day. 03/17/2023 tiotropium (SPIRIVA) 18 mcg per inhalation capsule 1 capsule (18 mcg total) 1 (one) time each day. zolpidem CR (AMBIEN CR) 12.5 mg CR tablet Take 1 tablet (12.5 mg total) by mouth at bedtime as needed for sleep. Do not crush, chew, or split. acetaminophen (TYLENOL) 325 mg tablet Take 2 tablets (650 mg total) by mouth every 4 (four) hours if needed for moderate pain or headaches. 10/20/2022 acetaminophen (TYLENOL) 500 mg tablet Take 2 tablets (1,000 mg total) by mouth every 6 (six) hours if needed for mild pain. 60 tablet 05/03/2024 albuterol 2.5 mg /3 mL (0.083 %) nebulizer solution 3 mL (2.5 mg total) every 4 (four) hours if needed for shortness of breath or wheezing. ibuprofen (ADVIL,MOTRIN) 600 mg tablet Take 1 tablet (600 mg total) by mouth every 8 (eight) hours if needed for mild pain. 60 tablet 05/03/2024 meclizine (ANTIVERT) 25 mg tablet Take 1 tablet (25 mg total) by mouth 3 (three) times a day if needed. oxyCODONE (ROXICODONE) 5 mg immediate release tablet Take 1 tablet (5 mg total) by mouth every 6 (six) hours if needed for severe pain. Max Daily Amount: 20 mg 15 tablet 05/03/2024 oxyCODONE (ROXICODONE) 5 mg immediate release tablet Take 1 tablet (5 mg total) by mouth every 6 (six) hours if needed for severe pain. Max Daily Amount: 20 mg 15 tablet 05/03/2024 documented as of this encounter Ordered Prescriptions Prescription Sig Dispensed Refills Start Date End Da te oxyCODONE (ROXICODONE) 5 mg immediate release tablet Take 1 tablet (5 mg total) by mouth every 6 (six) hours if needed for severe pain. Max Daily Amount: 20 mg 15 tablet 05/03/2024 ibuprofen (ADVIL,MOTRIN) 600 mg tablet Take 1 tablet (600 mg total) by mouth every 8 (eight) hours if needed for mild pain. 60 tablet 05/03/2024 acetaminophen (TYLENOL) 500 mg tablet Take 2 tablets (1,000 mg total) by mouth every 6 (six) hours if needed for mild pain. 60 tablet 05/03/2024 oxyCODONE (ROXICODONE) 5 mg immediate release tablet Take 1 tablet (5 mg total) by mouth every 6 (six) hours if needed for severe pain. Max Daily Amount: 20 mg 15 tablet 05/03/2024 documented in this encounter Discharge Disposition Disposition Code Departure Means Destination Comment s Home or Self Care Wheelchair documented in this encounter H&P Notes * Destin Vasques DO - 05/03/2024 8:19 AM EST Patient seen and examined preop holding area. [place] translation services utilized. Consented in for open umbilical hernia repair with mesh. Explained procedure in detail include risk of procedure which include bleeding, fashion, damage from structures need for the procedures he understands these risks wished before surgery. Source Note - Destin Vasques DO - 05/03/2024 8:17 AM EST Reason for visit: Follow-up -umbilical hernia HPI: This is a pleasant 48 yr. patient who was previously evaluated in my office for an umbilical hernia. He reports that its become more symptomatic and has caused him a significant amount of pain wishesto move forward with surgery. We utilized [place] translation services. He denies any history of obstruction. No skin changes noted year. He is a non-smoker is not on anticoagulation. There have been no interval changes in past medical/surgical history, medications, social history, or family medical history. Please refer to EMR or my prior note for additional details. ROS GENERAL: No significant weight loss or fever RESPIRATORY: No cough or shortness of breath CARDIOVASCULAR: No chest pain GI: No abdominal discomfort, see HPI SKIN: No rash, jaundice ACTIVE MEDICATIONS: Medication list was reviewed/updated with the patient. Current Outpatient Medications Medication Sig Dispense Refill metformin (GLUCOPHAGE) 500 MG tablet Take 1 Tablet by mouth. triamcinolone acetonide (KENALOG-40) 40 MG/ML injection Inject 0.5 mL into the articular space oncefor 1 dose. 0.5 mL 0 cyclobenzaprine (FLEXERIL) 10 MG tablet Take 1 Tablet by mouth. baclofen (LIORESAL) 10 MG tablet Take 1 Tablet by mouth. rosuvastatin (CRESTOR) 10 MG tablet Take 1 Tablet by mouth. budesonide-formoterol (Symbicort) 160-4.5 MCG/ACT inhaler USAR 2 INHALACIONS POR LA BOCA 2 VECES ALDIA ondansetron (ZOFRAN) 4 MG tablet Take 1 Tablet by mouth every 8 hours as needed. oxycodone (ROXICODONE) 5 MG immediate release tablet Take one tablet every 6 hours as needed for pain 20 Tablet 0 ibuprofen (ADVIL,MOTRIN) 800 MG tablet Take 1 Tablet by mouth every 8 hours for 30 days. 60 Tablet 0 acetaminophen (Tylenol) 325 MG tablet Take 2 Tablets by mouth every 6 hours as needed for Pain (mild to moderate pain) for up to 10 days. 80 Tablet 0 NIFEdipine (PROCARDIA XL) 60 MG 24 hr tablet Take 1 Tablet by mouth daily. nebivolol (BYSTOLIC) 5 MG tablet Take 5 mg by mouth daily. albuterol (PROVENTIL) (2.5 MG/3ML) 0.083% nebulizer solution Take 1 Vial by nebulization every 4 hours as needed. ALBUTEROL SULFATE 108 (90 Base) MCG/ACT Aero Soln Inhale 2 Puffs into the lungs every 4 hours as needed. allopurinol (ZYLOPRIM) 100 MG tablet Take 100 mg by mouth daily. aripiprazole (ABILIFY) 5 MG tablet Take 5 mg by mouth daily. buPROPion (WELLBUTRIN XL) 300 MG 24 hr tablet Take 300 mg by mouth daily. clonazepam (KLONOPIN) 1 MG tablet Take 1 mg by mouth daily. Diclofenac Sodium 1 % Gel Apply topically. famotidine (PEPCID) 20 MG tablet Take 1 tablet by mouth every evening. fluticasone 50 MCG/ACT nasal spray 1 [place] by Each Nare route daily. gabapentin (NEURONTIN) 300 MG capsule Take 1 mg by mouth daily. lidocaine (LIDODERM) 5 % Place 1 Patch onto the skin every 24 hours. Apply for no more than 12 hours in any 24 hour period. loratadine (CLARITIN) 10 MG tablet Take 10 mg by mouth daily as needed. losartan-hydrochlorothiazide (HYZAAR) 50-12.5 MG per tablet Take 1 tablet by mouth daily. Meclizine HCl 25 MG Tab Take 1 tablet by mouth 2 times daily. methocarbamol (ROBAXIN) 500 MG tablet Take 500 mg by mouth 4 times daily. montelukast (SINGULAIR) 10 MG tablet Take 10 mg by mouth at bedtime. omeprazole (PRILOSEC) 20 MG capsule Take 2 Capsules by mouth daily. paroxetine (PAXIL) 40 MG tablet Take 40 mg by mouth every morning. predniSONE (DELTASONE) 10 MG tablet Take 10 mg by mouth daily. tiotropium (SPIRIVA) 18 MCG inhalation capsule Inhale 18 mcg into the lungs daily. Inhale the contents of one capsule through the Spiriva device every AM Ymeupkil-Jssfrdaoyckm-Qtfaffc 600-50-300 MG Tab Take 1 tablet by mouth daily. No current facility-administered medications for this visit. ALLERGIES: Patient has no known allergies. PHYSICAL EXAM: Blood pressure (!) 142/89, pulse 88, temperature 96.8 ??F (36 ??C), temperature source Temporal, height 5' 9 (1.753 m), weight 217 lb 12.8 oz (98.8 kg). Estimated body mass index is 32.16 kg/m?? as calculated from the following: Height as of this encounter: 5' 9 (1.753 m). Weight as of this encounter: 217 lb 12.8 oz (98.8 kg). APPEARANCE: Alert and in no acute distress EYES: conjunctiva and sclera normal. HEART: RRR LUNG: non-labored respirations, patient is comfortable on room air without adventitious sounds ABDOMEN: benign, small umbilical hernia with incarcerated preperitoneal fat less than 2 cm EXTREMITIES: Extremities warm and well perfused without edema NEURO: Awake, alert and oriented, moves all extremities SKIN: Skin color, texture normal. LABS: No results found for: WBC, HGB, HCT, MCV, PLTCT No results found for: NA, K, CO2, CL, BUN, CREAT, GLU, ALB, SGOT, SGPT, TBILI, ALKPHOS, TP, CA, GFR IMAGING: None ................................................................................ ............................................................. ASSESSMENT 1. Umbilical hernia without obstruction and without gangrene PLAN: 1. Patient has a symptomatic umbilical hernia and wishes to undergo open umbilical hernia repair with mesh placement. I explained the procedure in detail to the patient including the risks of procedure which include bleeding, infection, damage surrounding structures need for the procedures. He understands that he is at slight increased risk of recurrence due to his obesity. I also explained the risk of mesh infection and surgical site infection. He understands these risks and like to move forward surgery. * Destin Vasques DO - 05/03/2024 8:17 AM EST Reason for visit: Follow-up -umbilical hernia HPI: This is a pleasant 48 yr. patient who was previously evaluated in my office for an umbilical hernia. He reports that its become more symptomatic and has caused him a significant amount of pain wishesto move forward with surgery. We utilized [place] translation services. He denies any history of obstruction. No skin changes noted year. He is a non-smoker is not on anticoagulation. There have been no interval changes in past medical/surgical history, medications, social history, or family medical history. Please refer to EMR or my prior note for additional details. ROS GENERAL: No significant weight loss or fever RESPIRATORY: No cough or shortness of breath CARDIOVASCULAR: No chest pain GI: No abdominal discomfort, see HPI SKIN: No rash, jaundice ACTIVE MEDICATIONS: Medication list was reviewed/updated with the patient. Current Outpatient Medications Medication Sig Dispense Refill metformin (GLUCOPHAGE) 500 MG tablet Take 1 Tablet by mouth. triamcinolone acetonide (KENALOG-40) 40 MG/ML injection Inject 0.5 mL into the articular space oncefor 1 dose. 0.5 mL 0 cyclobenzaprine (FLEXERIL) 10 MG tablet Take 1 Tablet by mouth. baclofen (LIORESAL) 10 MG tablet Take 1 Tablet by mouth. rosuvastatin (CRESTOR) 10 MG tablet Take 1 Tablet by mouth. budesonide-formoterol (Symbicort) 160-4.5 MCG/ACT inhaler USAR 2 INHALACIONS POR LA BOCA 2 VECES ALDIA ondansetron (ZOFRAN) 4 MG tablet Take 1 Tablet by mouth every 8 hours as needed. oxycodone (ROXICODONE) 5 MG immediate release tablet Take one tablet every 6 hours as needed for pain 20 Tablet 0 ibuprofen (ADVIL,MOTRIN) 800 MG tablet Take 1 Tablet by mouth every 8 hours for 30 days. 60 Tablet 0 acetaminophen (Tylenol) 325 MG tablet Take 2 Tablets by mouth every 6 hours as needed for Pain (mild to moderate pain) for up to 10 days. 80 Tablet 0 NIFEdipine (PROCARDIA XL) 60 MG 24 hr tablet Take 1 Tablet by mouth daily. nebivolol (BYSTOLIC) 5 MG tablet Take 5 mg by mouth daily. albuterol (PROVENTIL) (2.5 MG/3ML) 0.083% nebulizer solution Take 1 Vial by nebulization every 4 hours as needed. ALBUTEROL SULFATE 108 (90 Base) MCG/ACT Aero Soln Inhale 2 Puffs into the lungs every 4 hours as needed. allopurinol (ZYLOPRIM) 100 MG tablet Take 100 mg by mouth daily. aripiprazole (ABILIFY) 5 MG tablet Take 5 mg by mouth daily. buPROPion (WELLBUTRIN XL) 300 MG 24 hr tablet Take 300 mg by mouth daily. clonazepam (KLONOPIN) 1 MG tablet Take 1 mg by mouth daily. Diclofenac Sodium 1 % Gel Apply topically. famotidine (PEPCID) 20 MG tablet Take 1 tablet by mouth every evening. fluticasone 50 MCG/ACT nasal spray 1 [place] by Each Nare route daily. gabapentin (NEURONTIN) 300 MG capsule Take 1 mg by mouth daily. lidocaine (LIDODERM) 5 % Place 1 Patch onto the skin every 24 hours. Apply for no more than 12 hours in any 24 hour period. loratadine (CLARITIN) 10 MG tablet Take 10 mg by mouth daily as needed. losartan-hydrochlorothiazide (HYZAAR) 50-12.5 MG per tablet Take 1 tablet by mouth daily. Meclizine HCl 25 MG Tab Take 1 tablet by mouth 2 times daily. methocarbamol (ROBAXIN) 500 MG tablet Take 500 mg by mouth 4 times daily. montelukast (SINGULAIR) 10 MG tablet Take 10 mg by mouth at bedtime. omeprazole (PRILOSEC) 20 MG capsule Take 2 Capsules by mouth daily. paroxetine (PAXIL) 40 MG tablet Take 40 mg by mouth every morning. predniSONE (DELTASONE) 10 MG tablet Take 10 mg by mouth daily. tiotropium (SPIRIVA) 18 MCG inhalation capsule Inhale 18 mcg into the lungs daily. Inhale the contents of one capsule through the Spiriva device every AM Lezzxmew-Jmeftlsgpzpl-Uatpmat 600-50-300 MG Tab Take 1 tablet by mouth daily. No current facility-administered medications for this visit. ALLERGIES: Patient has no known allergies. PHYSICAL EXAM: Blood pressure (!) 142/89, pulse 88, temperature 96.8 ??F (36 ??C), temperature source Temporal, height 5' 9 (1.753 m), weight 217 lb 12.8 oz (98.8 kg). Estimated body mass index is 32.16 kg/m?? as calculated from the following: Height as of this encounter: 5' 9 (1.753 m). Weight as of this encounter: 217 lb 12.8 oz (98.8 kg). APPEARANCE: Alert and in no acute distress EYES: conjunctiva and sclera normal. HEART: RRR LUNG: non-labored respirations, patient is comfortable on room air without adventitious sounds ABDOMEN: benign, small umbilical hernia with incarcerated preperitoneal fat less than 2 cm EXTREMITIES: Extremities warm and well perfused without edema NEURO: Awake, alert and oriented, moves all extremities SKIN: Skin color, texture normal. LABS: No results found for: WBC, HGB, HCT, MCV, PLTCT No results found for: NA, K, CO2, CL, BUN, CREAT, GLU, ALB, SGOT, SGPT, TBILI, ALKPHOS, TP, CA, GFR IMAGING: None ................................................................................ ............................................................. ASSESSMENT 1. Umbilical hernia without obstruction and without gangrene PLAN: 1. Patient has a symptomatic umbilical hernia and wishes to undergo open umbilical hernia repair with mesh placement. I explained the procedure in detail to the patient including the risks of procedure which include bleeding, infection, damage surrounding structures need for the procedures. He understands that he is at slight increased risk of recurrence due to his obesity. I also explained the risk of mesh infection and surgical site infection. He understands these risks and like to move forward surgery. documented in this encounter Procedure Notes * Radha Daly RN - 05/03/2024 11:27 AM EST Patient vss, surgical dressing intact without drainage, reviewed all discharge instructions with patient and Carlyn (case operator) who interpreted for specifications writer. All questions answered * Destin Vasques DO - 05/03/2024 9:02 AM EST OPEN REPAIR UMBILICAL HERNIA OPERATIVE NOTE Date: 05/03/2024 Location: [facility] OR Name: Alden Warner, : 1975, Diagnosis Pre-op Diagnosis * Umbilical hernia without obstruction or gangrene [K42.9] Post-op Diagnosis * Umbilical hernia without obstruction or gangrene [K42.9] Procedures OPEN REPAIR UMBILICAL HERNIA [address]697 - [place] REPR ANT ABD HERNIA(S) ANY APPR INIT INCL IMPL < 3 CM REDUCIBLE Additional Procedures Indications: Alden Warner is an 49 y.o. male who is having surgery for Umbiical Hernia. Surgeon(s) & Adjuster(s) * Destin Vasques, DO - Primary Anesthesia: general ASA: III Estimated Blood Loss: 25 mL Drains: [REMOVED] NG/OG Tube Orogastric (Removed) Specimen: Hernia sac Specimens ID Source Type Tests Collected By Collected At Frozen? Priority Lab ID 1 Abdominal Wall Tissue TISSUE EXAM Destin Vasques, DO 05/03/24 0931 Description: Umbilical hernnia sac Procedure Details: Patient was preoperatively consented utilizing back maker services in the preop operative holding area. He was then brought to the operating room placed supine position on the operating table. He was then placed under general endotracheal anesthesia by our anesthesia providers. He received preoperative antibiotics as well as Venodyne boots. His abdomen was prepped and draped in normal sterile fashion. A preoperative timeout was performed. I then infiltrated local anesthetic in the infraumbilical region. I made a small curvilinear incision roughly 2 and half centimeters below the umbilicus. This was taken down through the dermis and subcutaneous tissues using Bovie electrocautery. I was then able to dissect circumferentially around the umbilical stalk as well as the hernia sac withtonsil. I left a tonsil in place and then utilized a snap to slowly dissect through the adhesive tissues overlying the hernia sac with sharp dissection with Metzenbaum scissors. I opened up the hernia sac and found there to be incarcerated preperitoneal fat as well as omentum. I I dissected the bruna ia sac off of the surrounding fascia as well as off of the dermis of the umbilicus with sharp dissection. This was sent to pathology. The underlying omentum was returned to the intra-abdominal space.There was a small bleeder on the omentum which was cauterized. The fascial defect was cleared on the underside using blunt as well as electrocautery dissection. It measured roughly 1.5 cm in greatestdirection. I elected to place a 4.3 cm [address] mesh in place. Next I utilized 0 Ethibond suture to take bites through the fascia and then both tails of the mesh and then through the other side of the fascia. I placed 4 interrupted sutures which close the defect sufficiently. There was no tension on the closure and the mesh was seated well. I then sutured the dermis and the umbilicus back down to the fascia using a 3-0 Vicryl suture. I closed the subcutaneous layers with 3-0 Vicryl as well. Skin was closed with 4 Monocryl in subcuticular fashion with Dermabond. All instrument counts needle count sponge counts correct x 2. I was present scrubbed for entire procedure. Patient was woken on the operative table transferred stretcher brought back in stable condition. Findings: 1.5 cm umbilical defect requiring mesh placement. Complications: None; patient tolerated the procedure well. Disposition: PACU - hemodynamically stable. Condition: stable * Ana Aragon RN - 05/03/2024 8:27 AM EST CARLYN LUIS-FRIEND [phone] documented in this encounter Plan of Treatment Upcoming Encounters Date Type Department Care Team ([facility] st Contact Info) Description 05/15/2024 10:30 AM EST Office Visit General Surgery - [place] [address] [facility] [address] [place] [phone] Destin Vasques DO [address] [id number] documented as of this encounter Procedures Procedure Name Priority Date/Time Associated Diagnosis Comments OXYGEN THERAPY, ADULT Routine 05/03/2024 9:50 AM EST OXYGEN THERAPY, ADULT Routine 05/03/2024 9:50 AM EST TISSUE EXAM Routine 05/03/2024 9:31 AM EST Umbilical hernia without obstruction or gangrene [place] REPR ANT ABD HERNIA(S) ANY APPR INIT INCL IMPL < 3 CM REDUCIBLE 05/03/2024 8:42 AM EST Umbilical hernia without obstruction or gangrene Case Notes 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 Abdominal Wall, Umbilical hernnia sac: - Benign mesothelial-lined fibroadipose tissue, compatible with hernia sac. 05/06/2024 12:21 PM EST [facility] Gross Description A. Abdominal Wall, Umbilical hernnia sac: Labeled umbilical, ABD wall . Received in formalin is a 3.4 x 2.1 x 0.3 cm irregular disrupted pink-white membranous tissue fragment with minimal attached adipose tissue. No mass lesions are appreciated. A route sales representative section is submitted one cassette, one piece. LOLITA 05/06/2024 12:21 PM EST [facility] Disclaimer Unless otherwise specified, all tissue is 10% NB formalin fixed and paraffin embedded. 05/06/2024 12:21 PM EST [facility] Tissue Abdominal wall / Unknown 05/03/2024 9:31 AM EST 05/03/2024 10:40 AM EST Destin Vasques DO LAB PATHOLOGY ORDERA BLES [facility] [address] [place] [address], * (ABNORMAL) POCT Glucose, blood (05/03/2024 7:59 AM EST) Glucose POCT 120(H) 70 - 100 mg/dL 05/03/2024 8:00 AM EST [facility] Blood Capillary blood specimen / Unknown 05/03/2024 7:59 AM EST 05/03/2024 8:01 AM EST Destin Vasques DO LAB POINT OF CARE TE ST DOCKED DEVICE UNSOLICITED RESULTS [facility] [address] [place] [address], documented in this encounter Visit Diagnoses Diagnosis Umbilical hernia without obstruction or gangrene- Primary Umbilical hernia without mention of obstruction or gangrene Umbilical hernia without obstruction or gangrene Umbilical hernia without mention of obstruction or gangrene documented in this encounter Admitting Diagnoses Diagnosis Umbilical hernia without obstruction or gangrene Umbilical hernia without mention of obstruction or gangrene documented in this encounter Administered Medications Inactive Administered Medications - up to 3 most recent administrations Medication Order MAR Action Action Date Dose Rate Site acetaminophen (TYLENOL) tablet 1,000 mg 1,000 mg, oral, Once, On Mon05/03/24 at 1015, For 1 dose, Recovery (only) Given 05/03/2024 10:11 AM EST 1,000 mg albuterol HFA (PROAIR HFA ; PROVENTIL HFA ; VENTOLIN HFA) 90 mcg/actuation inhaler inhalation, As needed, Starting on Mon05/03/24 at 0912, Anesthesia Intraprocedure Given 05/03/2024 10:37 AM EST Given 05/03/2024 9:12 AM EST 2 puffs bupivacaine-EPINEPHrine (MARCAINE w/EPI) 0.25 %-1:200,000 injection As needed, Starting on Mon05/03/24 at 0907, Intraprocedure Given 05/03/2024 9:07 AM EST 30 mL Abdominal Tissue fentaNYL (PF) (SUBLIMAZE) injection 50 mcg 50 mcg, intravenous, Every 5 min PRN, severe pain, Starting on Mon05/03/24 at 0950, For 5 doses, Recovery (only) HYDROmorphone (PF) injection 0.5 mg 0.5 mg, intravenous, Every 10 min PRN, moderate pain, Starting on Mon05/03/24 at 0950, For 4 doses, Recovery (only) Given 05/03/2024 10:40 AM EST 0.5 mg lactated Ringer's infusion intravenous, Continuous PRN, Starting on Mon05/03/24 at 0840, Anesthesia Intraprocedure Continued from OR 05/03/2024 9:48 AM EST New Bag 05/03/2024 8:40 AM EST ondansetron (PF) (ZOFRAN) injection 4 mg 4 mg, intravenous, Once as needed, nausea, vomiting, Starting on Mon05/03/24 at 0950, For 1 dose, Recovery (only) oxyCODONE (ROXICODONE) immediate release tablet 5 mg 5 mg, oral, Once as needed, moderate pain, Starting on Mon05/03/24 at 1115, For 1 dose, Phase II/On Unit documented in this encounter Discontinued Medications Medication Sig Discontinue Reason Start Date End Da te oxyCODONE (ROXICODONE) 5 mg immediate release tablet Take one tablet every 6 hours as needed for pain Stop Taking at Discharge 10/20/2022 05/03/2024 documented as of this encounter Active and Recently Administered Medications Times are shown in EST. Scheduled Medication Order 05/01/2024 05/02/2024 05/03/2024 acetaminophen (TYLENOL) tablet 1,000 mg (COMPLETED) 1,000 mg, oral, Once, On Mon05/03/24 at 1015, For 1 dose, Recovery (only) 1011 (Given - Provid er: Martine De La Cruz RN) ceFAZolin (ANCEF) 2 g in sterile water 20 mL IV syringe 2 g, intravenous, Administer over 3 Minutes, Once, On Mon05/03/24 at 0845, For 1 dose, Preprocedure, Indication: Prophylaxis-Surgical 0838 (Handoff - Prov ider: Ana Aragon RN - Comment: RENETTA WHIPPLE)0948 (Not Given - Provider: Martine De La Cruz RN - Reason: Other - Comment: duplicate order, was given in OR see eMAr) haloperidol lactate (HALDOL) injection 1 mg 1 mg, intravenous, Once, On Mon05/03/24 at 1015, For 1 dose, Recovery (only), May be ordered via either intramuscular or intravenous route. If ordered IV, maximum of 5 mg/minute. 1014 (Not Given - Pr ovider: Martine De La Cruz RN - Reason: Other - Comment: PT does not appear to need at this time.) ipratropium-albuteroL (DUONEB) 0.5-2.5 mg/3 mL nebulizer solution 3 mL 3 mL, nebulization, Once, On Mon05/03/24 at 1100, For 1 dose, Recovery (only) 1100 (Canceled Entry - Provider: Automatic Discharge Provider - Comment: Automatically canceled at discontinue of medication order) PRN Medication Order 05/01/2024 05/02/2024 05/03/2024 albuterol HFA (PROAIR HFA ; PROVENTIL HFA ; VENTOLIN HFA) 90 mcg/actuation inhaler (CANCELED) inhalation, As needed, Starting on Mon05/03/24 at 0912, Anesthesia Intraprocedure 0912 (Given - Provid er: Renetta Vitale CRNA)1037 (Given - Provider: Martine De La Cruz RN) bupivacaine-EPINEPHrine (MARCAINE w/EPI) 0.25 %-1:200,000 injection (CANCELED) As needed, Starting on Mon05/03/24 at 0907, Intraprocedure 0907 (Given - Provid er: Destin Vasques DO) fentaNYL (PF) (SUBLIMAZE) injection 50 mcg 50 mcg, intravenous, Every 5 min PRN, severe pain, Starting on Mon05/03/24 at 0950, For 5 doses, Recovery (only) HYDROmorphone (PF) injection 0.5 mg 0.5 mg, intravenous, Every 10 min PRN, moderate pain, Starting on Mon05/03/24 at 0950, For 4 doses, Recovery (only) 1040 (Given - Provid er: Martine De La Cruz RN) lactated Ringer's infusion (CANCELED) intravenous, Continuous PRN, Starting on Mon05/03/24 at 0840, Anesthesia Intraprocedure 0840 (New Bag - Prov ider: Renetta Vitale CRNA)0939 (Stopped - Provider: Renetta Vitale CRNA)0948 (Continued from OR - Provider: Martine De La Cruz RN - Comment: Arrive to PACU with 450 ml of LR remaining.) ondansetron (PF) (ZOFRAN) injection 4 mg 4 mg, intravenous, Once as needed, nausea, vomiting, Starting on Mon05/03/24 at 0950, For 1 dose, Recovery (only) oxyCODONE (ROXICODONE) immediate release tablet 5 mg 5 mg, oral, Once as needed, moderate pain, Starting on Mon05/03/24 at 1115, For 1 dose, Phase II/On Unit documented in this encounter Orders Medications Ordered That Christiano ht Not Have Been Administered Count Last Ordered Date First Ordered Date ceFAZolin (ANCEF) 2 g in hermila rile water 20 mL IV syringe 1 05/03/2024 fentaNYL (PF) (SUBLIMAZE) injection 50 mcg 1 05/03/2024 haloperidol lactate (HALDOL) injection 1 mg 1 05/03/2024 ipratropium-albuteroL (DUONE B) 0.5-2.5 mg/3 mL nebulizer solution 3 mL 1 05/03/2024 ondansetron (PF) (ZOFRAN) injection 4 mg 1 05/03/2024 oxyCODONE (ROXICODONE) immed iate release tablet 5 mg 1 05/03/2024 Respiratory Care Count Last Ordered Date First Ordered Date OXYGEN THERAPY, ADULT 2 05/03/2024 Discharge Count Last Ordered Date First Orde red Date DISCHARGE PATIENT 1 05/03/2024 documented in this encounter Care Teams Home Security Professional Relationship Specialty Start Date End Date Sierra Reinoso PA [facility] [place] [address] PCP - General 08/06/21 documented as of this encounter
--- OUTSIDE RECORDS SUMMARY | 2024-05-07 11:38 | XMS_ITS | Encounter Summary ---
Author Organization [employer] Address [address] [place] [address] Care Team Providers Care Stencil Typist Name Role Phone Sierra Reinoso Primary Care Provider Reason for Visit * Auth/Cert (Routine) Specialty Diagnoses / Procedures Referred By Sean t Referred To Contact Diagnoses Umbilical hernia without obstruction or gangrene Umbiical Hernia Procedures SC REPR ANT ABD HERNIA(S) ANY APPR INIT INCL IMPL < 3 CM REDUCIBLE OPEN REPAIR UMBILICAL HERNIA Destin Vasques DO [address] [address] Referral ID Status Reason Start Date Expiration Date Visits Re quested Visits Authorized [id number] 04/22/2024 1 1 Encounter Details Date Type Department Care Team (Latest Contact Info) Description 05/03/2024 7:45 AM EST - 05/03/2024 11:48 AM EST Hospital Encounter [facility] Main OR [address] [place] [phone] Destin Vasques DO [address] [address] Umbilical hernia without obstruction or gangrene Discharge Disposition: Home or Self Care Social History Tobacco Use Types Packs/Day Years [...] through Care Everywhere. * Hernia Repair: Post-op (Mexican) documented in this encounter Medications at Time of Discharge Medication Sig Dispensed Refills Start Date End Date cdqqqkbo-pioudttnewtv-a amiVUDine (Triumeq) 600-50-300 mg per tablet Take [...] Patient seen and examined preop holding area. Mexican translation services utilized. Consented in for open [...] wishesto move forward with surgery. We utilized Mexican translation services. He denies any history of [...] evening. fluticasone 50 MCG/ACT nasal spray 1 [employer] by Each Nare route daily. gabapentin (NEURONTIN) [...] capsule through the Spiriva device every AM Duneromb-Bdfrqdhtkcug-Plrqxel 600-50-300 MG Tab Take 1 tablet by [...] wishesto move forward with surgery. We utilized Mexican translation services. He denies any history of [...] evening. fluticasone 50 MCG/ACT nasal spray 1 [employer] by Each Nare route daily. gabapentin (NEURONTIN) [...] capsule through the Spiriva device every AM Uhsxtznu-Qwagjlieennh-Rxfsggs 600-50-300 MG Tab Take 1 tablet by [...] discharge instructions with patient and Carlyn (case maker) who interpreted for commercial insurance underwriter. All questions answered * Destin Vasques DO - 05/03/2024 9:02 AM EST OPEN REPAIR UMBILICAL HERNIA OPERATIVE NOTE Date: 05/03/2024 Location: [facility] OR Name: Alden Warner, : 1975, Diagnosis Pre-op Diagnosis * Umbilical hernia without obstruction or gangrene [K42.9] Post-op Diagnosis * Umbilical hernia without obstruction or gangrene [K42.9] Procedures OPEN REPAIR UMBILICAL HERNIA 14230 - SC REPR ANT ABD HERNIA(S) ANY APPR INIT INCL IMPL < 3 CM REDUCIBLE Additional Procedures Indications: Alden Warner is an 49 y.o. male who is having surgery for Umbiical Hernia. Surgeon(s) & Jawbone Puller(s) * Destin Vasques, DO - Primary Anesthesia: general ASA: III Estimated Blood Loss: 25 mL Drains: [REMOVED] NG/OG Tube Orogastric (Removed) Specimen: Hernia sac Specimens ID Source Type Tests Collected By Collected At Frozen? Priority Lab ID 1 Abdominal Wall Tissue TISSUE EXAM Destin Vasques, DO 05/03/24 0931 Description: Umbilical hernnia sac Procedure Details: Patient was preoperatively consented utilizing revenue cycle administrator services in the preop operative holding area. [...] RN - 05/03/2024 8:27 AM EST CARLYN GARCIA-FRIEND [phone] documented in this encounter Plan of Treatment Upcoming Encounters Date Type Department Care Team (Late st Contact Info) Description 05/15/2024 10:30 AM EST Office Visit General Surgery - [place] [address] [place] [phone] Destin Vasques DO [address] [facility] [address] [place] [phone] documented as of this encounter Procedures Procedure Name Priority Date/Time Associated Diagnosis Comments OXYGEN THERAPY, ADULT Routine 05/03/2024 9:50 AM EST OXYGEN THERAPY, ADULT Routine 05/03/2024 9:50 AM EST TISSUE EXAM Routine 05/03/2024 9:31 AM EST Umbilical hernia without obstruction or gangrene SC REPR ANT ABD HERNIA(S) ANY APPR INIT INCL IMPL < 3 CM REDUCIBLE 05/03/2024 8:42 AM EST Umbilical hernia without obstruction or gangrene Case Notes CORRECTIONS NURSE Special Needs 1 hr please POCT GLUCOSE BLOOD Routine 05/03/2024 7:59 AM EST documented in this encounter Results * Tissue exam (05/03/2024 9:31 AM EST) Final Diagnosis A. Abdominal Wall, Umbilical hernnia sac: - Benign mesothelial-lined fibroadipose tissue, compatible with hernia sac. 05/06/2024 12:21 PM EST [facility] Gross Description A. Abdominal Wall, Umbilical hernnia sac: Labeled umbilical, ABD wall . Received in formalin is a 3.4 x 2.1 x 0.3 cm irregular disrupted pink-white membranous tissue fragment with minimal attached adipose tissue. No mass lesions are appreciated. A insurance verification representative section is submitted one cassette, one piece. LOLITA 05/06/2024 12:21 PM EST [facility] Disclaimer Unless otherwise specified, all tissue is 10% NB formalin fixed and paraffin embedded. 05/06/2024 12:21 PM [facility] Tissue Abdominal wall / Unknown 05/03/2024 9:31 AM EST 05/03/2024 10:40 AM EST Destin Vsaques DO LAB PATHOLOGY ORDERA BLES [facility] [address] [place] [address], [place] [phone] * (ABNORMAL) POCT Glucose, blood (05/03/2024 7:59 AM EST) Glucose POCT 120(H) 70 - 100 mg/dL 05/03/2024 8:00 AM EST [facility] Blood Capillary blood specimen / Unknown 05/03/2024 7:59 AM EST 05/03/2024 8:01 AM EST Destin Vasques DO LAB POINT OF CARE TE ST DOCKED DEVICE UNSOLICITED RESULTS [facility] [address] [place] [address], [place] [phone] documented in this encounter Visit Diagnoses Diagnosis [...] Given 05/03/2024 9:12 AM EST 2 puffs fentaNYL (PF) (SUBLIMAZE) injection 50 mcg 50 [...] Count Last Ordered Date First Ordered Date bupivacaine-EPINEPHrine (MAR DAREN w/EPI) 0.25 %-1:200,000 injection 1 05/03/2024 ceFAZolin (ANCEF) 2 g in barry rile water 20 mL IV syringe 05/03/2024 fentaNYL (PF) (SUBLIMAZE) injection 50 mcg 05/03/2024 haloperidol lactate (HALDOL) injection 1 mg 05/03/2024 ipratropium-albuteroL (DUONE B) 0.5-2.5 mg/3 mL [...] 05/03/2024 documented in this encounter Care Teams Stencil Typist Relationship Specialty Start Date End Date Sierra Reinoso PA [facility] [place] [address] PCP - General 08/06/21 documented as of this encounter
--- OUTSIDE RECORDS SUMMARY | 2024-05-07 11:38 | XMS_ITS | Encounter Summary ---
Author Organization [facility] Address [address] [place] [address] Care Team Providers Care Picture Frame Maker Name Role Phone Sierra Reinoso Primary Care Provider Encounter Details Date Type Department Care Team (Late Contact Info) Description 01/12/2024 7:30 AM EDT Hospital Encounter TH HISTORIC ENCOUNTERS EASTERN CONVERSION ONLY Sierra Reinoso PA [address] [place] [address] Social History Tobacco Use Types Packs/Day Years [...] on file documented as of this encounter Plan of Treatment Upcoming Encounters Date Type Department Care Team (Late st Contact Info) Description 05/15/2024 10:30 AM EST Office Visit General Surgery - [place] [address] [facility] [address] [place] [phone] Destin Vasques, DO 175 [facility] [address] [place] [address] documented as of this encounter Visit Diagnoses Not on filedocumented in this encounter Care Teams Picture Frame Maker Relationship Specialty Start Date End Date Sierra Reinoso PA [address] [place] [address] PCP - General 08/06/21 documented as of this encounter
--- OUTSIDE RECORDS SUMMARY | 2024-05-07 11:38 | XMS_ITS | Encounter Summary ---
Author Organization [facility] Address [address] [place] [address] Care Team Providers Care Design Studio Consultant Name Role Phone Sierra Reinoso Primary Care Provider Reason for Visit * Reason Onset Date Comments Prior Authorization 04/29/2024 05/03/24 Dr. Destin Vasques Encounter Details Date Type Department Care Team (Late st Contact Info) Description 04/29/2024 Telephone General Surgery - [place] [address] [facility] [address] [place] [phone] Destin Vasques, DO [address] [place] [address] Prior Authorization (05/03/24 Dr. Destin Vasques) Social History Tobacco Use Types Packs/Day Years Used Date Smoking Tobacco: Never Passive Smoke Exposure: Never Smokeless Tobacco: Never Alcohol Use Standard Drinks/Week Comments Yes 0 (1 standard drink = 0.6 oz pur e alcohol) OCCASIONALLY Sex and Gender Information Value Date Recorded Sex Assigned at Male 04/30/2024 10:34 AM EST Gender Identity Male 04/30/2024 10:34 AM EST Sexual Orientation Lesbian or Owens 04/30/2024 5: 22 PM EST Job Start Date Occupation Industry Not on file Not on file Not on file documented as of this encounter Progress Notes * Charo Ruff - 04/29/2024 2:33 PM EST I received a referral for surgery with Dr. Vasques on 04/15/24. Auth# [id number] from 04/29/24 to 04/29/25 * Charo Ruff - 04/29/2024 10:03 AM EST He is having surgery on 05/03/[address] Vasques at [facility]. He has [facility] for insurance. I called [facility] to get a referral documented in this encounter Plan of Treatment Upcoming Encounters Date Type Department Care Team (Late st Contact Info) Description 05/15/2024 10:30 AM EST Office Visit General Surgery - [place] [address] [place] [phone] Destin Vasques, DO [address] [facility] [address] [place] [phone] documented as of this encounter Visit Diagnoses Not on filedocumented in this encounter Care Teams Design Studio Consultant Relationship Specialty Start Date End Date Sierra Reinoso PA [address] [place] [address] PCP - General 08/06/21 documented as of this encounter
--- OUTSIDE RECORDS SUMMARY | 2024-05-07 11:38 | XMS_ITS | Encounter Summary ---
Author Organization [facility] Address [address] [place] [address] Care Team Providers Care Print Decorator Name Role Phone Sierra Reinoso Primary Care Provider Encounter Details Date Type Department Care Team (Late st Contact Info) Description 04/09/2024 Telephone Orthopedics - [address] [phone] Ngozi Golden Social History Tobacco Use Types Packs/Day Years [...] as of this encounter Progress Notes * Ngozi Golden - 04/09/2024 3:[address] Fernando, We received a call today from the patient stated that his cyst has gone away and he would like to cancel the surgery. I did notify Nathaniel to hold on transposing his booking order. -Ngozi documented in this encounter Plan of Treatment Upcoming Encounters Date Type Department Care Team (Late st Contact Info) Description 05/15/2024 10:30 AM EST Office Visit General Surgery - [place] [address] [facility] [address] [place] [phone] Destin Vasques, DO [address] [facility] [address] [place] [address] documented as of this encounter Visit Diagnoses Not on filedocumented in this encounter Care Teams Print Decorator Relationship Specialty Start Date End Date Sierra Reinoso PA [facility] [place] [address] PCP - General 08/06/21 documented as of this encounter
--- OUTSIDE RECORDS SUMMARY | 2024-05-07 11:39 | XMS_ITS | Encounter Summary ---
Author Organization [facility] Address [address] [place] [address] Care Team Providers Care Derrick Boat Operator Name Role Phone Sierra Reinoso Primary Care Provider Reason for Referral * Consultation (Routine) - Authorized Specialty Diagnoses / Procedures Referred By Contact Referred To Contact Physical Medicine and Rehabilitation Diagnoses Myofascial pain Krish Harp MD [address] [address] Referral ID Status Reason Start Date Expiration Date Visits Requested Visits Authorized [id number] Authorized Specialty Services Required 05/06/2024 05/06/2025 1 1 Reason for Visit * Reason Comments Consult Left shoulder painIn marion Correa # [id number] * Consultation (Routine) - Authorized Specialty Diagnoses / Procedures Referred By Contac t Referred To Contact Orthopedic Surgery / Orthopaedic Surgery Diagnoses Pain in left shoulder Child, CARLITOS Fraire [address] [place] [address] Krish Harp MD [address] [address] Referral ID Status Reason Start Date Expiration Date Visits Requested Visits Authorized [id number] Authorized Specialty Services Required 04/15/2024 04/15/2025 1 1 Encounter Details Date Type Department Care Team (Late st Contact Info) Description 05/06/2024 1:45 PM EST Consult Orthopedic Surgery - [place] [address] [facility] [address] [place] [address] Krish Harp MD 175 [facility] [address] [place] [address] Myofascial pain (Primary Dx); Pain in left shoulder Social History Tobacco Use Types Packs/Day Years [...] Sign Reading Time Taken Comments Blood Pressure - - Pulse - - Temperature - - Respiratory Rate - - Oxygen Saturation - - Inhaled Oxygen Concentration - - Weight 98 kg (216 lb) 05/06/2024 1:08 PM EST Height 175.3 cm (5' 9.02 ) 05/06/2024 1:08 PM ES T Body Mass Index 31.88 05/06/2024 1:08 PM EST documented in this encounter Progress Notes * Krish Harp MD - 05/06/2024 1:45 PM EST Date: May 05, 2024 Chief Complaint: Left shoulder pain Date of injury/duration of symptoms: Atraumatic chronic over the last year HPI: Alden Warner is a 49 y.o. male fkyci-qray-yjqgfwec on disability for anxiety Kosovan-speaking seen with video fast food crew lead Sunny #[id number] presenting for left upper neck and lower arm pain. Patient says that he has previously been seen by the [facility] pain management, he says they have given him injections and given him physical therapy there. He says that they would help for short period of time and then he would have recurrence of his pain. He does not know if he is had any intra-articular shoulder injections. He says the last injection was in February 2024 he has not had MRI [facility] surgery before. He denies any known injury that started this pain. He says that the pain is in his upper neck and radiates to his mid arm. Is not associate with numbness or tingling that wakes him at night. Past Medical History: Diagnosis Date Anxiety Arthritis Asthma DX:Asthma Degeneration of intervertebral disc between fourth and fifth lumbar vertebrae Depression Diabetes mellitus ([facility]) Essential hypertension DX:Essential hypertension GERD (gastroesophageal reflux disease) HIV (human immunodeficiency virus infection) ([facility]) Human immunodeficiency virus (HIV) disease ([facility]) DX:Human immunodeficiency virus (HIV) disease ([facility]) Hyperlipidemia Joint pain Neuromuscular disorder ([facility]) Right foot pain DX:Right foot pain Shoulder pain LEFT Past Surgical History: Procedure Laterality Date BUNIONECTOMY Right EYE SURGERY HEMORRHOID SURGERY OTHER SURGICAL HISTORY PROCEDURE: DESTRUCTION OF INTERNAL HEMORRHOIDS No family history on file. Social History Socioeconomic History Marital status: Single Spouse name: Not on file Number of children: Not on file Years of education: Not on file Highest education level: Not on file Occupational History Not on file Tobacco Use Smoking status: Never Passive exposure: Never Smokeless tobacco: Never Substance and Sexual Activity Alcohol use: Yes Alcohol/week: 6.0 standard drinks of alcohol Types: 6 Cans of beer per week Comment: OCCASIONALLY Drug use: Never Sexual activity: Not on file Other Topics Concern Not on file Social History Narrative Not on file Current Outpatient Medications: stjbqqrk-piczuqdpgrtf-hewuGZPnsc (Triumeq) 600-50-300 mg per tablet, Take 1 tablet by mouth 1 (one)time each day., Disp: , Rfl: acetaminophen (TYLENOL) 325 mg tablet, Take 2 tablets (650 mg total) by mouth every 4 (four) hours if needed for moderate pain or headaches., Disp: , Rfl: acetaminophen (TYLENOL) 500 mg tablet, Take 2 tablets (1,000 mg total) by mouth every 6 (six) hoursif needed for mild pain., Disp: 60 tablet, Rfl: 0 albuterol 2.5 mg /3 mL (0.083 %) nebulizer solution, 3 mL (2.5 mg total) every 4 (four) hours if needed for shortness of breath or wheezing., Disp: , Rfl: albuterol HFA (PROAIR HFA ; PROVENTIL HFA ; VENTOLIN HFA) 90 mcg/actuation inhaler, 2 puffs every 4(four) hours if needed for wheezing or shortness of breath., Disp: , Rfl: allopurinoL (ZYLOPRIM) 100 mg tablet, Take 1 tablet (100 mg total) by mouth 1 (one) time each day.,Disp: , Rfl: budesonide-formoteroL (SYMBICORT) 160-4.5 mcg/actuation inhaler, 2 puffs 1 (one) time each day., Disp: , Rfl: buPROPion XL (WELLBUTRIN XL) 300 mg 24 hr tablet, 1 tablet (300 mg total) 1 (one) time each day., Disp: , Rfl: clonazePAM (KlonoPIN) 1 mg tablet, Take 1 tablet (1 mg total) by mouth 3 (three) times a day., Disp: , Rfl: cyclobenzaprine (FLEXERIL) 10 mg tablet, Take 1 tablet (10 mg total) by mouth 2 (two) times a day if needed., Disp: , Rfl: gabapentin (NEURONTIN) 300 mg capsule, Take 1 capsule (300 mg total) by mouth at bedtime., Disp: , Rfl: ibuprofen (ADVIL,MOTRIN) 600 mg tablet, Take 1 tablet (600 mg total) by mouth every 8 (eight) hoursif needed for mild pain., Disp: 60 tablet, Rfl: 0 lidocaine (LIDODERM) 5 % patch, Place 1 Patch onto the skin every 24 hours. Apply for no more than 12 hours in any 24 hour period., Disp: , Rfl: loratadine (CLARITIN) 10 mg tablet, Take 1 tablet (10 mg total) by mouth 1 (one) time each day., Disp: , Rfl: losartan-hydroCHLOROthiazide (HYZAAR) 50-12.5 mg per tablet, Take 1 tablet by mouth 1 (one) time each day., Disp: , Rfl: meclizine (ANTIVERT) 25 mg tablet, Take 1 tablet (25 mg total) by mouth 3 (three) times a day if needed., Disp: , Rfl: metFORMIN (FORTAMET) 500 mg 24 hr tablet, Take 1 tablet (500 mg total) by mouth 2 (two) times a day. Do not crush, chew, or split., Disp: , Rfl: montelukast (SINGULAIR) 10 mg tablet, Take 1 tablet (10 mg total) by mouth at bedtime., Disp: , Rfl: nebivoloL (BYSTOLIC) 5 mg tablet, Take 1 tablet (5 mg total) by mouth 1 (one) time each day., Disp:, Rfl: NIFEdipine CC (ADALAT CC) 60 mg 24 hr tablet, 1 tablet (60 mg total) 1 (one) time each day before breakfast., Disp: , Rfl: oxyCODONE (ROXICODONE) 5 mg immediate release tablet, Take 1 tablet (5 mg total) by mouth every 6 (six) hours if needed for severe pain. Max Daily Amount: 20 mg, Disp: 15 tablet, Rfl: 0 oxyCODONE (ROXICODONE) 5 mg immediate release tablet, Take 1 tablet (5 mg total) by mouth every 6 (six) hours if needed for severe pain. Max Daily Amount: 20 mg, Disp: 15 tablet, Rfl: 0 pantoprazole (PROTONIX) 40 mg EC tablet, Take 1 tablet (40 mg total) by mouth 2 (two) times a day. Do not crush, chew, or split., Disp: , Rfl: PARoxetine (PAXIL) 40 mg tablet, 1 tablet (40 mg total) 1 (one) time each day in the morning., Disp: , Rfl: rosuvastatin (CRESTOR) 10 mg tablet, Take 1 tablet (10 mg total) by mouth 1 (one) time each day., Disp: , Rfl: tiotropium (SPIRIVA) 18 mcg per inhalation capsule, 1 capsule (18 mcg total) 1 (one) time each day., Disp: , Rfl: zolpidem CR (AMBIEN CR) 12.5 mg CR tablet, Take 1 tablet (12.5 mg total) by mouth at bedtime as needed for sleep. Do not crush, chew, or split., Disp: , Rfl: No Known Allergies Objective Focused Exam: Left Upper Extremity Negative Spurling's, painless neck range of motion Skin intact Has tenderness to palpation over the upper trapezius Fires Deltoid/Biceps/Triceps/EPL/FPL/FDP/IO SILT Ax/MSC/M/R/U palpable radial pulse AROM FF/abduction/ER/IR: 150/140/60/L1 PROM FF 180 painful but 5/5 strength with rotator cuff strength testing at 0 and 90 degrees of abduction Supraspinatus: negative Jessica's Test Subscapularis: negative Bear hug Impingement: pain with Neer's Test negative Hawkin's Test AC Joint: mild TTP Biceps: Hook test negative Yergason's test After diagnostic lidocaine injection patient reports unchanged pain with full forward elevation, rotator cuff strength testing and tenderness over the upper trapezius. Imaging/diagnostic studies: 4 view x-ray of the left shoulder shows no evidence of fracture or dislocation, the glenohumeral joint space is well-preserved, soft tissue shadows appear normal There is mild acromioclavicular degenerative changes Impression: Mild left acromioclavicular degenerative changes otherwise normal radiographs of the left shoulder without osseous abnormalities. Medical Decision Making (base on 2 out of 3 elements): Problems Addressed: Low- 1 stable chronic illness Tests Ordered and/or Reviewed: Low Risk Level: Low risk Assessment: Alden Warner presents with left shoulder pain consistent with upper trapezius myofascial pain. On exam today he did have some positive findings of impingement and some pain with rotator cuff testing. We discussed a diagnostic lidocaine injection into the left shoulder to help determine if his pain was primarily from his upper trapezius or also involves his shoulder. We did discuss that the shoulder and scapulothoracic joint are coupled with use of the arm and pathology in his shoulder can sometimes present as upper back or periscapular pain. After verbal consent and voicing understanding the risk and benefits of the procedure, using sterile technique 10 cc of 1% lidocaine plain were injected into the subacromial space. After 15 minutes the patient was reevaluated and was not found to have improvement in his shoulder pain. He had persistent tenderness over his upper trapezius and pain with forward elevation. We explained that this would appear to indicate that his pain is primarily from his periscapular muscles. We recommended a referral to physical therapy and physiatry for possible trigger point injections. He voiced understanding of his diagnosis and treatment options, he declined a physical therapy referral as he says this did not improve his pain in the past. Plan: Left trapezius and periscapular myofascial pain - Referral to physiatry -Patient declined physical therapy. Krish Harp MD documented in this encounter Plan of Treatment Upcoming Encounters Date Type Department Care Team (Late st Contact Info) Description 05/15/2024 10:30 AM EST Office Visit General Surgery - [place] [address] [facility] [address] [place] [phone] Destin Vasques, [address] [place] [address] Scheduled Referrals Name Type Priority Associated Diagnoses Order Schedule Ambulatory referral to Physicial Medicine Rehab Outpatient Referral Routine Myofascial pain 1 Occurrences starting 05/06/2024 until 05/06/2025 documented as of this encounter Visit Diagnoses Diagnosis Myofascial pain- Primary Unspecified myalgia and myositis Pain in left shoulder documented in this encounter Orders Outpatient Referral Count Last Ordered Date Fir st Ordered Date AMB REFERRAL TO ORTHOPEDIC SURGERY 1 2024 documented in this encounter Care Teams Derrick Boat Operator Relationship Specialty Start Date End Date Sierra Reinoso PA [address] [place] [address] PCP - General 08/06/21 documented as of this encounter
--- OUTSIDE RECORDS SUMMARY | 2024-05-07 11:39 | XMS_ITS | Encounter Summary ---
Author Organization [employer] Address [address] [place] [address] Care Team Providers Care Bandage Wrapping Machine Operator Name Role Phone Sierra Reinoso Primary Care Provider Reason for Visit * Auth/Cert (Routine) Specialty Diagnoses / Procedures Referred By Sean t Referred To Contact Diagnoses Umbilical hernia without obstruction or gangrene Umbiical Hernia Procedures MT REPR ANT ABD HERNIA(S) ANY APPR INIT INCL IMPL < 3 CM REDUCIBLE OPEN REPAIR UMBILICAL HERNIA Destin Vasques DO [address] [address] Referral ID Status Reason Start Date Expiration Date Visits Re quested Visits Authorized [id number] 04/22/2024 1 1 Encounter Details Date Type Department Care Team (Late st Contact Info) Description 05/03/2024 8:27 AM EST Anesthesia Event [facility] OR [address] [place] [id number] Juno Gao DO [address] [place] [address] Nash Haynes MD [address] [place] [address] Anesthesia Record Procedure Summary Procedure Name Responsible Anesthesiologist Anesthesia Start Time Anesthesia Stop Time OPEN REPAIR UMBILICAL HERNIA (Abdomen) Juno Gao DO 05/03/24 0827 05/03/24 0951 Events Date Time Event Comment 05/03/2024 0827 An Start 0830 0842 An Start Data The patient wa s reevaluated immediately before moderate or deep sedation use and before anesthesia induction. 0842 In Room 0847 An Induction 0848 An Intubation 0851 Anesthesia Ready 0902 Proc Start 0938 Proc Fin 0940 An Extubation 0944 an stop data 0945 Out of Room 0951 Handoff to RN I completed my handoff to the receiving nurse during which we: 1. Identified the patient 2. Identified the responsible provider 3. Reviewed the pertinent medical history 4. Discussed the surgical course 5. Reviewed intra-op anesthesia management and issues during anesthesia 6. Set expectations for post-procedure period 7. Allowed opportunity for questions and acknowledgement of understanding. 0951 An Stop Meds Name Total fentaNYL (SUBLIMAZE) injection 100 mcg propofol (DIPRIVAN) injection 10 mg/mL 2 00 mg rocuronium 50 mg ondansetron 2 mg/mL 4 mg dexamethasone (DECADRON) injection 4 mg/ mL 4 mg lidocaine PF (XYLOCAINE-MPF) local injec tion 2% 100 mg ceFAZolin (ANCEF) IV syringe 2 g/20 mL 2 g ALBUTEROL SULFATE HFA 90 MCG/ACTUATION A EROSOL INHALER 2 puff ketorolac (TORADOL) injection 15 mg 15 m g sugammadex (BRIDION) injection 100 mg/mL 200 mg lactated Ringer's infusion 500 mL * Agents Name O2 N2O Air Sevoflurane Desflurane Inspired Desflurane Inspired Sevoflurane N2O Inspired N2O * Blood No blood administrations on file. Lines, Drains, and Airways Type Details Placement Removal Wound Incision; 05/03/24; 09; Umbilicus 05/03/24901 by Sue Moffett RN Peripheral IV Placement Date: 05/03/24; Placement Time: 830; Catheter Size: 20 G; Orientation: Posterior, Right; Location: Wrist; Site Prep: Chlorhexidine; Local Anesth: None; Inserted by: TORI VILA RN; Insertion Attempts: 1; Patient Tolerance: Tolerated well; Removal Date: 05/03/24; Removal Time: 1130 05/03/24 08 by Tori Aragon RN 05/03/24 113 by Radha Daly RN ETT Placement Date: 05/03/24; Placement Time: 0848 (created via procedure documentation); Mask Ventilation: 1; Technique: Direct laryngoscopy; Type: ETT; Cuffed: Yes; Blade Size: 3; Location: Oral; Insertion Attempts: 1; Placement Verification: Auscultation, Capnometry; Removal Date: 05/03/24; Removal Time: 0940 05/03/24 0848 by Paloma Vitale CRNA 05/03/24 0940 by Paloma Vitale CRNA NG/OG Tube Placement Date: 05/03/24; Placement Time: 0857; Type: Orogastric; Removal Date: 05/03/24; Removal Time: 92905/03/24 0857 by Paloma Vitale CRNA 05/03/24 0930 by Paloma Vitale CRNA documented in this encounter Social History Tobacco [...] as of this encounter Progress Notes * Juno Gao DO - 05/05/2024 6:59 AM EST Patient: Alden Warner Procedure Summary Date: 05/03/24 Room / Location: [facility] OR 03 / [facility] OR Anesthesia Start: 826 Anesthesia Stop: 950 Procedure: OPEN REPAIR UMBILICAL HERNIA (Abdomen) Diagnosis: Umbilical hernia without obstruction or gangrene (Umbiical Hernia) Surgeons: Destin Vasques DO Responsible Provider: Juno Gao DO Anesthesia Type: general ASA Status: 3 Anesthesia Plan: general Last Vitals: Vitals Value Taken Time BP 141/80 05/03/24 1100 Temp 36.2 ??C (97.2 ??F) 05/03/24 1100 Pulse 79 05/03/24 1100 Resp 18 05/03/24 1100 SpO2 99 % 05/03/24 1100 No data recorded Anesthesia Post Evaluation Patient location during evaluation: PACU Patient participation: complete - patient participated Level of consciousness: awake and alert Pain management: adequate Airway patency: patent Anesthetic complications: no Cardiovascular status: acceptable Respiratory status: acceptable and room air Hydration status: acceptable Nausea: No Vomiting: No There were no known notable events for this encounter. * Paloma Vitale CRNA - 05/03/2024 9:02 AM ESTAssociated Order(s): Intubation General Information and Staff Patient location during procedure: OR Resident/CIRCUITRY NEGATIVE INSPECTOR: Paloma Vitale CRNA Performed: resident/CIRCUITRY NEGATIVE INSPECTOR/CAA Performed by: Paloma Vitale CRNA Authorized by: Nash Haynes MD Intubation Urgency: elective Final Airway Details Successful [...] by mask Start Time: 05/03/2024 8:48 AM * Nash Haynes MD - 05/03/2024 8:25 AM EST Relevant Problems Cardio (+) HTN (hypertension) (+) Internal hemorrhoids Pulmonary (+) Asthma (+) SOB (shortness of breath) GI (+) Chronic GERD Clinical information reviewed: Tobacco Allergies Meds Med Hx Surg Hx Fam Hx Soc Hx Anesthesia Plan ASA 3 Anesthesia Plan: general General Anesthesia Considerations: LMA Induction method: intravenous Anesthetic plan and risks discussed with patient. Anesthesia Evaluation Airway Mallampati: III Dental - normal exam Pulmonary - normal exam (+) asthma, shortness of breath ROS comment: Daily albuterol use Cardiovascular - normal exam (+) hypertension ROS comment: ECHO (10/2023) EF 60-65% LVH Hyperlipidemia Neuro/Psych (+) psychiatric history Comments: Syphillis Hx of depression Hx of anxiety GI/Hepatic/Renal Comments: IBS Endo/Other (+) diabetes mellitus Comments: NIDDM on metformin Pituitary tumor HIV Abdominal PONV RISK SCORE: 1 Vitals: 05/03/24 0757 BP: (!) 165/94 Pulse: 89 Resp: 16 Temp: 36.2 ??C (97.1 ??F) SpO2: 100% SpO2 Readings from Last 1 Encounters: 05/03/24 100% No results found for: WBC , RBC , HGB , HCT , PLT , MCV No Known Allergies STOP BANG: No data recorded NPO Status: Time of Last Liquid: 1900 Time of Last Solid: 1400 documented in this encounter Plan of Treatment Upcoming Encounters Date Type Department Care Team (Late st Contact Info) Description 05/15/2024 10:30 AM EST Office Visit General Surgery - [employer] 175 [facility] [address] [place] [phone] Destin Vasques, DO [address] [facility] [address] [place] [address] documented as of this encounter Procedures Procedure Name Priority Date/Time Associated Diagnosis Comments TH AN ENDOTRACHEAL(NO CHARGE) Routine 05/03/2024 9:02 AM EST documented in this encounter Results * TH AN ENDOTRACHEAL(NO CHARGE) (05/03/2024 9:02 AM EST) Narrative Paloma Vitale CRNA - 05/03/2024 9:02 AM EST Paloma Vitale CRNA ? 05/03/2024 ??9:03 AM General Information and Staff Patient location during procedure: OR Resident/CIRCUITRY NEGATIVE INSPECTOR: Paloma Vitale CRNA Performed: resident/CIRCUITRY NEGATIVE INSPECTOR/CAA Performed by: Paloma Vitale CRNA Authorized by: [...] AM Nash Haynes MD ANESTHESIA ORDERABLE S documented in this encounter Visit Diagnoses Not on filedocumented in this encounter Administered Medications Inactive Administered Medications - up to 3 most recent administrations Medication Order MAR Action Action Date Dose Rate Site albuterol HFA (PROAIR HFA ; PROVENTIL HFA ; VENTOLIN HFA) 90 mcg/actuation inhaler inhalation, As needed, Starting on Mon05/03/24 at 0912, Anesthesia Intraprocedure Given 05/03/2024 10:37 AM EST Given 05/03/2024 9:12 AM EST 2 puffs ceFAZolin (ANCEF) 2 gram/20 mL IV syringe intravenous, Administer over 3 Minutes, As needed, Starting on Mon05/03/24 at 0856, Anesthesia Intraprocedure Given 05/03/2024 8:56 AM EST 2 g dexAMETHasone (DECADRON) injection intravenous, As needed, Starting on Mon05/03/24 at 0858, Anesthesia Intraprocedure Given 05/03/2024 8:58 AM EST 4 mg fentaNYL (PF) (SUBLIMAZE) injection intravenous, As needed, Starting on Mon05/03/24 at 0847, Anesthesia Intraprocedure Given 05/03/2024 8:47 AM EST 100 mcg ketorolac (TORADOL) injection intravenous, As needed, Starting on Mon05/03/24 at 0933, Anesthesia Intraprocedure Given 05/03/2024 9:33 AM EST 15 mg lactated Ringer's infusion intravenous, Continuous PRN, Starting on Mon05/03/24 at 0840, Anesthesia Intraprocedure Continued from OR 05/03/2024 9:48 AM EST New Bag 05/03/2024 8:40 AM EST lidocaine (PF) (XYLOCAINE-MPF) 2 % injection injection, As needed, Starting on Mon05/03/24 at 0847, Anesthesia Intraprocedure Given 05/03/2024 8:47 AM EST 100 mg ondansetron (PF) (ZOFRAN) injection intravenous, As needed, Starting on Mon05/03/24 at 0933, Anesthesia Intraprocedure Given 05/03/2024 9:33 AM EST 4 mg propofoL (DIPRIVAN) injection intravenous, As needed, Starting on Mon05/03/24 at 0847, Anesthesia Intraprocedure Given 05/03/2024 8:47 AM EST 2 00 mg rocuronium (ZEMURON) injection intravenous, As needed, Starting on Mon05/03/24 at 0847, Anesthesia Intraprocedure Given 05/03/2024 8:47 AM EST 5 0 mg sugammadex (BRIDION) 100 mg/mL injection intravenous, As needed, Starting on Mon05/03/24 at 0933, Anesthesia Intraprocedure Given 05/03/2024 9:33 AM EST 2 00 mg documented in this encounter Care Teams Bandage Wrapping Machine Operator Relationship Specialty Start Date End Date Sierra Reinoso PA [address] [place] [address] PCP - General 08/06/21 documented as of this encounter
--- OUTSIDE RECORDS SUMMARY | 2024-05-07 11:39 | XMS_ITS | Encounter Summary ---
Author Organization [employer] Address [address] [place] [address] Care Team Providers Care Senior Communications Specialist Name Role Phone Sierra Reinoso Primary Care Provider Reason for Visit * Reason Onset Date Comments Advice Only 05/03/2024 Encounter Details Date Type Department Care Team (Late st Contact Info) Description 05/03/2024 Telephone General Surgery - [place] [address] [facility] [address] [place] [phone] Destin Vasques, DO [address] [place] [phone] Advice Only Social History Tobacco Use Types Packs/Day Years [...] as of this encounter Progress Notes * Ana Stephens - 05/03/2024 1:[address] Vasques called the pharmacist and this is all set. * Ana Stephens - 05/03/2024 1:41 PM EST I sent a [employer] message to Dr Vasques about this. * Shaunna Rush - 05/03/2024 12:36 PM EST The pharmacist called and stated that Dr Vasques has to finish up the Script on the part that says upon request, or else they can't fill up the prescription. The # they call from is -The person that called was Jensen Lundberg and that is the cell # documented in this encounter Plan of Treatment Upcoming Encounters Date Type Department Care Team (Late st Contact Info) Description 05/15/2024 10:30 AM EST Office Visit General Surgery - [place] [address] [phone] Destin Vasques, DO [address] [facility] [address] [address] documented as of this encounter Visit Diagnoses Not on filedocumented in this encounter Care Teams Senior Communications Specialist Relationship Specialty Start Date End Date Sierra Reinoso PA [facility] [place] [address] PCP - General 08/06/21 documented as of this encounter
--- OUTSIDE RECORDS SUMMARY | 2024-05-07 11:39 | XMS_ITS | Clinical Summary ---
Author Organization [facility] Address [address] [place] [address] Care Team Providers Care Baggage Handling Supervisor Name Role Phone Sierra Reinoso PA-C Primary Care Provider [phone] Source Comments PLEASE NOTE, if this patient is a minor, it may be UNLAWFUL to discuss sensitive information that is contained in these records (such as FAMILY PLANNING, MENTAL HEALTH or SUBSTANCE ABUSE) with the minor patient's parent or other person without the patient's specific authorization.[facility] Allergies No known active allergies Medications PARoxetine HCl (PAXIL) 40 mg tablet PER PSYCH [place] 019 Active buPROPion HCL (WELLBUTRIN XL) 300 mg 24 hr tablet Take 300 mg by mouth once daily 021 Active blood pressure monitorIndications: Essential hypertension Please check blood pressure at home twice a day. Dx: I10. Need: lifetime 1 Kit 021 Active inhalational spacing deviceIndications:I ntermittent asthma, unspecified asthma severity, unspecified whether complicated Use to administer Symbicort 1 Each 021 Active omeprazole (PRILOSEC) [address] capsuleIndications: HIV (human immunodeficiency virus infection) ([facility]) EMILIA 2 CAPSULAS POR LA BOCA POR LA MANANA ANTES DEL DESAYUNO 90 Capsule 024 Active NIFEdipine (PROCARDIA XL) 60 mg 24 hr tabletIndications:E ssential hypertension EMILIA 1 TABLETA POR LA BOCA ZI VEZ AL DIATOMAR 1 TABLETA POR LA BOCA ZI VEZ AL ALCIDES 90 Tablet 1 024 Active abacavir-dolutegrav ir-lamivud (TRIUMEQ) 600-50-300 mg tabIndications:HIV infection, unspecified symptom status ([facility]) Take 1 Tablet by mouth once daily 30 Tablet 11 Active rosuvastatin (CRESTOR) 10 mg tabletIndications:H ypertriglyceridemia Take 1 Tablet by mouth nightly at bedtime 90 Tablet 2 Active VENTOLIN HFA 90 mcg/actuation inhalerIndications: Moderate persistent asthma without complication USAR 2 INHALACIONS POR LA BOCA CADA 4 HORAS CUANDO SEA NECESARIO PARA DIMPLE O RESPIRACION CORTA 18 g 2 Active metFORMIN (GLUCOPHAGE) 500 mg tabletIndications:P rediabetes Take 1 Tablet by mouth 2 (two) times daily with a meal For diabetes prevention. 180 Tablet Active lidocaine (LIDODERM) 5 % patchIndications:Ne ck pain APPLY 1 PATCH ONTO THE SKIN FOR 12 HOURS ON AND THEN LEAVE OFF FOR 12 HOURS 90 Patch 1 Active SPIRIVA WITH HANDIHALER 18 mcg capsule for inhalerIndications: Chronic obstructive pulmonary disease, unspecified COPD type ([facility]),Moderate persistent asthma without complication INHALAR EL CONTENIDO DE 1 CAPSULA A TRAVES DE HANDIHALER DIARIAMENTE. USAR 2 INHALACIONS DE 1 CAPSULE PARA CADA DOSIS 90 Capsule Active SYMBICORT 160-4.5 mcg/actuation inhalerIndications: Moderate persistent asthma without complication USAR 2 INHALACIONS POR LA BOCA 2 VECES AL ALCIDES 30.6 g Active losartan-hydrochlor othiazide (HYZAAR) 50-12.5 mg per tabletIndications:E ssential hypertension EMILIA 1 TABLETA POR LA BOCA ZI VEZ AL ALCIEDS 90 Tablet 1 024 Active montelukast (SINGULAIR) 10 mg tabletIndications:C hronic obstructive pulmonary disease, unspecified COPD type ([facility]),Moderate persistent asthma without complication [place] 1 tableta por vIa oral todas las noches antes de acostarse 90 Tablet Active blood sugar diagnostic stripsIndications:P rediabetes 1 Each daily. Freestyle lite strips to check sugar daily. 100 Each 3 Active blood-glucose meter monitoring kitIndications:Pred iabetes daily. Freestyle lite glucose monitor to check sugar daily. 1 Each Active alcohol swabsIndications:Pr ediabetes Clean are before checking sugar at home, 100 Each 1 Active lancetsIndications: Prediabetes daily. Lancets to check sugar level daily. 100 Each 3 Active allopurinoL (ZYLOPRIM) 100 mg tabletIndications:E ssential hypertension EMILIA 1 TABLETA POR LA BOCA ZI VEZ ALL ALCIDES 90 Tablet Active DEEP SEA NASAL 0.65 % nasal sprayIndications:Na shirin congestion PLACE 1 SPRAY INTO THE NOSTRIL(S) NEEDED FOR CONGESTION 44 mL 4 Active fluticasone (FLONASE) 50 mcg/actuation nasal sprayIndications:Ch ronic obstructive pulmonary disease, unspecified COPD type ([facility]) COLOQUE 1 SPRAY EN AMBOS FOSAS NASALES JASEN SEA NECESARIO PARA RINITIS 16 g Active lithium carbonate 300 mg capsule Take 300 mg by mouth 2 (two) times daily (Prescribed by Dr. [facility]ell - psych) Active clotrimazole (LOTRIMIN) 1 % cream Active pantoprazole (PROTONIX) 40 mg EC tablet Take 40 mg by mouth 2 (two) times daily (Prescribed by [facility]) Active CARAFATE 100 mg/mL suspension Prescribed by [facility] Active ibuprofen 800 mg tabletIndications:L eft foot pain EMILIA 1 TABLETA POR LA BOCA NICO VECES AL ALCIDES RUDDY SEA NECESARIO 90 Tablet 3 Active acetaminophen (TYLENOL) 325 mg tablet TAKE 2 TABLETS BY MOUTH EVERY 6 HOURS NEEDED FOR PAIN (MILD TO MODERATE PAIN) FOR UP TO 10 DAYS. 80 Tablet 3 Active tadalafiL (CIALIS) 10 mg tablet Active oxyCODONE (ROXICODONE) 5 mg tablet Active albuterol (PROVENTIL) 2.5 mg /3 mL (0.083 %) nebulizer solution Active zolpidem (AMBIEN CR) 12.5 mg CR tablet Take 12.5 mg by mouth nightly at bedtime as needed (Prescribed by psych) Active clonazePAM (KLONOPIN) 1 mg tablet Take 1 Tablet by mouth 3 (three) times daily as needed for anxiety (Prescribed by psychiatrist) Active cyclobenzaprine (FLEXERIL) 10 mg tabletIndications:N radha pain,Muscle spasm EMILIA 1 TABLETA POR LA BOCA NICO VECES AL ALCIDES RUDDY SEA NECESARIO PARA ESPASMOS MUSCULARES 90 Tablet Active loratadine (CLARITIN) 10 mg tablet EMILIA 1 TABLETA POR LA BOCA TODAS LAS NOCHES 90 Tablet 1 Active nebivoloL (BYSTOLIC) 5 mg tabletIndications:E ssential hypertension TAKE 1 TABLET BY MOUTH ONCE DAILY FOR 180 DAYS 90 Tablet 1 024 2024 Active meclizine (ANTIVERT) 25 mg tabletIndications:D izziness EMILIA 1 TABLETA POR LA BOCA 2 VECES AL ALCIDES RUDDY SEA NECESARIO PARA MAREO 20 Tablet Active diclofenac sodium (VOLTAREN) 1 % gelIndications:Lumb ar nerve root impingement APLICAR TOPICAMENTE 2 VECES ALL ALCIDES A LA RODILLA DERECHA O PARA LA ESPALDA 100 g 025 Active gabapentin (NEURONTIN) 300 mg capsuleIndications: Lumbar nerve root impingement Take 1 Capsule by mouth 2 (two) times daily for 90 days EMILIA 1 CAPSULA POR LA BOCA ZI VEZ AL ALCIDES 180 Capsule 024 2024 Discontinued(T herapy completed/Not needed) meclizine (ANTIVERT) 25 mg tabletIndications:D izziness EMILIA 1 TABLETA POR LA BOCA 2 VECES AL ALCIDES RUDDY SEA NECESARIO PARA DIZZINESS 20 Tablet 024 2024 Discontinued diclofenac sodium (VOLTAREN) 1 % gelIndications:Lumb ar nerve root impingement APLICAR TOPICAMENTE 2 VECES ALL ALCIDES A LA RODILLA DERECHA O PARA LA ESPALDA 100 g 024 2024 Discontinued Active Problems Problem Noted Date Diagnosed Date Umbilical hernia without obstruction and without gangrene 02/07/2024 Prediabetes 07/05/2023 Glaucoma of both eyes 07/05/2023 Pituitary mass (HCC-CMS) 02/18/2021 Overview (02/18/2021): ?? Result type:MRI Exam Not Completed Neuro Result [...] on the left. Flow-voids in the adjacent jackson of Chao are preserved. ? Hallux valgus of right foot 02/10/2018 Overview (05/12/2018): 01/09/18 - R foot xray: no fx, mild hallux valgus deformity with overlying soft tissue swelling. Small tailor's bunion. 05/10/18 - Seen by podiatry. Steroid injection given. Neck pain 02/10/2018 Overview (07/05/2023): EXAM: X-RAY CERVICAL SPINE 4-5 VIEWS 06/01/2023 INDICATION: Chronic neck pain. TECHNIQUE: AP, lateral, open-mouth and bilateral oblique radiographs of the cervical spine are obtained. COMPARISON: None. FINDINGS AND IMPRESSION: There is mild degenerative disc disease at C5-6 with disc height narrowing and anterior spondylotic change. Cervical vertebral heights are preserved. Mild neural foraminal narrowing on the right at C5-6. Mild right-sided C6 uncinate process hypertrophy. 11/06/17 - Xray c-spine: mild degenerative changes at C5-C6 External hemorrhoids 01/15/2018 Overview (01/15/2018): 01/10/18 - Seen by Gen surg for eval of external hemorrhoids. Due to ongoing bleeding, pt is interested in surgery. Will discuss with Dr. Carrillo. In the meantime use Proctozone cream OR BID x 14 days Samantha esophagitis ([facility]) 04/30/2017 Overview (07/23/2017): Noted on endoscopy 02/10/[address] Acosta at [facility]. Advised will start on antifungal tx. 03/24/17 - [facility] GI: F/U for EGD-colonoscopy results: Samantha esophagitis due to steroid inhaler as he was not rinsing his mouth after use. Colonoscopy: 1 adenomatous polyp , and high risk for colon cancer. Repeat 5 years. 07/12/17 - seen by [facility] for odynophagia and dysphagia : uncertain why pt is back at [facility]. He was previously seen by GI at [facility] back in 2016 and had a EGD at that time. F/U with primary GI at [facility]. H/O colonoscopy 04/30/2017 Overview (12/19/2017): Colonoscopy 02/10/17 at [facility] by Dr Acosta for rectal bleeding. Findings; diverticulosis, hemorrhoids. 1 polyp noted and resected. Pathology: colon: tubular adenoma, esophageal brushing negative for malignant cells. Advised to repeat colonoscopy in 5 years. Gout 01/15/2017 Overview (01/15/2017): 12/29/16 [facility] ED for L great toe pain. Xray neg for fracture. Dx: gout, Tx: Indomethacin Chest pain 11/10/2016 Overview (10/01/2018): 10/31/[address] Anderson at Cardiology. Started on ASA 325 mg, pravastatin 40 mg, metoprolol 25 mg, given SL nitroglycerin for CT> Ordered Regadenosin MPI stress test. Will arrange Holter if stress test is unremarkable. 11/02/16 Exercise stress test shows no evidence of ischemia. Small inferior defect representing diaphragmatic attenuation, normal wall motion and LVEF 69%. Frequent PVCs with occasional couplets seen. 11/22/16 Holter monitor shows NSR, rare PACs with one atrial pair, rare PVCs, no pauses. 11/28/16 f/u with Dr Anderson. No evidence of ischemia, did have sx's with exercise. No EKG changes. He has non-sustained VT. WIll get Echocardiogram and electrolytes. If both negative, consider cardiac cath. 02/21/17 F/u Dr Anderson. Dx: ventricular tachycardia. No structural heart disease, stress test unremarkable. Increase metoprolol to 50 mg BID, could have BRICE recommend refer for sleep study. Sx's atypical for angina. 03/31/18 [facility] ED for CP. EKG is NSR, placed on Holter. Consult Dr Benites, advised f/u with cardiology and PCP. 10/03/17 - [facility] cardi[facility] F/U: no clinical recurrence suggestive of sustained arrhythmias. ECHO unremarkable. On metoprolol 50 mg. NO med changes. F/U 6 mos. 11/13/17 - 48 hr Holter Monitor: NSR with sinus tachy, HR ranges 49-132 average 88, one PAC, Rare PVC's and ventricular trigeminy, no significant pauses. 01/01/18 - Cardiology F/U: VT - no clinical recurrence suggestive of sustained VT. C/w metoprolol 50 mg BID. FU 1 year 06/28/18 - F/U Cardiology: no changes. F/U 1 yr Major depressive disorder, r ecurrent episode with anxious distress ([facility]) 05/16/2016 Overview (06/26/2018): F/U [place] Class 1 obesity due to exces s calories with serious comorbidity and body mass index (BMI) of 32.0 to 32.9 in adult 01/01/2016 Low back pain - Lumbar nerve root impingement S1 via MRI 07/19/17 11/28/2015 Overview (06/26/2018): Nov 2015 - Mild arthritis changes of lumbar spine seen on xray [facility] and Ct abd/pelv [facility] august 2015. MRI June shows L5/S1 broad-based left paracentral protrusion, which compresses the descending S1 nerve root with moderate L neural foraminal stenosis. 09/09/16 Eval by SLICK Cox at [facility]. Has just begun injection therapy. Will have him finish injections and f/u shortly thereafter. 10/05/16 Radiofrequency lesioning at [facility] 10/10/16 Epidural steroid injection 12/13/16 [facility], f/u from L4-5 LESI ; [...] NEOS F/u: sxs persisting. Microscopic discectomy planned. Abnormal anal Papanicolaou smear 09/02/2015 Overview (07/28/2018): 05/12/17 - Anal PAP neg for intraepithelial lesion or malignancy. HIV (human immunodeficiency virus infection) ([facility]) 05/26/2015 Overview (07/18/2017): Diagnosed 1998 in [place] [id number] negative per lab on 05/26/15 05/12/17 [facility] ID, Dr Griffith, Anal Pap and rectal GC/Chalm screening, pharyngeal GC/Chlam screening. Anal PAP neg for intraepithelial lesion or malignancy. Asthma 05/26/2015 Overview (02/26/2018): 02/15/18 - [facility] F/U: IMPRESSION: Severe persistent asthma with acute exacerbation will give a course of prednisone and a course of amocicillin for 7 days to continue with symbicort 160/4.5, 2 puffs q12h Spiriva 18mcg daily and albuterol as needed. Essential hypertension 05/26/2015 GERD (gastroesophageal reflux disease) 6 Overview (05/09/2018): 05/08/17 - Seen at [facility] ED c/o left upper abd pain. Dx: gastritis. Discharged with Maalox and Zofran. Syphilis, latent 05/26/2015 Overview (06/04/2015): PCN injections x3 June 2015 Resolved Problems Problem Noted Date Diagnosed Date Resolved Date Midline low back pain with l eft-sided sciatica 07/19/2016 11/17/2016 Fatigue 07/19/2016 11/17/2016 Encounters Date Type Department Care Team Description 04/15/2024 9:40 AM EST Office Visit [address] [phone] Juno Yates PA-C Martinez, Celestia Acute pain of left shoulder (Primary Dx); Chronic left shoulder pain; Non-Welsh speaking patient 04/15/2024 Travel 03/15/2024 1:00 PM EST Office Visit [address] [phone] Rell Dennison, PharmD Kory Garcia, Community Health Worker Essential hypertension (Primary Dx); Class 1 obesity due to excess calories with serious comorbidity and body mass index (BMI) of 32.0 to 32.9 in adult; Medication management 03/15/2024 Travel 02/07/2024 10:40 AM EST Office Visit [address] [phone] Sierra Reinoso PA-C Essential hypertension (Primary Dx); Prediabetes; Right foot pain; Moderate episode of recurrent major depressive disorder (HCC-CMS); Umbilical hernia without obstruction and without gangrene; Neck pain; Muscle spasm 02/07/2024 Travel from Last 3 Months Immunizations Name Administration Dates Next Due Flu, Preservative Free 12/22/2022,2021,01/08/2021,01/15,04/23/2019,12/11/2017,12/19/2016 Hep A, adult 07/16/2010,01/01/2010 INFLUENZA, SEASONAL, INJECTABLE 05/03/2016,07/02 MENINGOCOCCAL MCV4P (MENACTRA) 08/23/2021,2016 MODERNA COVID-19 VACCINE BIV ALENT, BLUE CAP, 6M+ 02/08/2022 Moderna COVID-19 (Spikevax), Mrna, Lnp-s, Pf, 50 Mcg/0.5 Ml, 12yr+ 03/31/2023 Moderna COVID-19 Vaccine, re d cap blue label, 12+ Primary Series 11/08/2021,02/10/2021,07/04/2020,06/06 PNEUMOCOCCAL CONJUGATE PCV 13 08/24/2015, 016 PNEUMOCOCCAL CONJUGATE PCV 2 0 (Prevnar) 02/08/2022 PNEUMOCOCCAL POLYSACCHARIDE PPV23 11/17/2016,02/2011 TDAP 08/24/2015,11/01/1984 Varicella, Live Vaccine 05/30/2022,02/28/2022 Family History Medical History Relation Name Comments Asthma Father Diabetes Father Heart Problems Father [place] age 60's Hypertension Father Diabetes Mother Heart Problems Mother open heart ojeda rgery 50's Hypertension Mother Parkinson's disease Mother Asthma Sister 1 Heart Problems Sister 1 [place] age 69 Hypertension Sister 1 Asthma Sister 2 Diabetes Sister 2 Hypertension Sister 2 Cancer Sister 3 colon CA, dec a ge <60 Kidney disease Sister 4 Relation Name Status Comments Brother 1 Brother 2 Brother 3 Father Mother Sister 1 Alive Sister 2 Alive Sister 3 Sister 4 Social History Tobacco Use Types Packs/Day Years Used Date Smoking Tobacco: Former Cigarettes 1 29.8 S tarted: 08/02/1994 Smokeless Tobacco: Former Quit: 05/26/2002 Tobacco Cessation:Counseling Given: Not Answered Alcohol Use Standard Drinks/Week Comments Yes 15 [...] No / Unsure 04/15/2024 8:33 AM EST Last Filed Vital Signs Vital Sign Reading Time Taken Comments Blood Pressure 146/88 04/15/2024 8:46 AM EST Pulse 78 04/15/2024 8:46 AM EST Temperature 36.6 ??C (97.9 ??F) 04/15/2024 8:46 AM ES T Respiratory Rate 16 04/15/2024 8:46 AM EST Oxygen Saturation 97% 03/15/2024 1:05 PM EST Inhaled Oxygen Concentration - - Weight 103 kg (227 lb) 04/15/2024 8:46 AM EST Height 175.3 cm (5' 9 ) 03/15/2024 1:05 PM EST Body Mass Index 33.52 03/15/2024 1:05 PM EST Plan of Treatment Upcoming Encounters Date Type Department Care Team (Late st Contact Info) Description 05/10/2024 10:20 AM EST Office Visit [address] [phone] Roya Eaton PA-C [address] [place] [address] 05/17/2024 10:00 AM EST Office Visit [address] [phone] Rell Dennison, PharmD [address] [place] [address] Kory Garcia, Community Health Worker [address] [place] [address] 07/18/2024 9:00 AM EDT Office Visit [facility] [address] [place] [phone] Mark Lynch, RD [address] [place] [address] Health Maintenance Due Date Last Done Comments CT Colonography 2018 FIT/gFOBT 2018 Fecal DNA 2018 Flexible Sigmoidoscopy 2018 Alcohol and Drug Screen 04/03/2024 04/10/19, 09/21/2022, 06/07/2021, Additional history exists Annual Preventive Care Visit 04/10/2024 04/10/2023, 01/19/2022, 10/28/2020, Additional history exists Lipid Screening 04/10/2024 04/10/2023, 11/2023, 09/02/2022, Additional history exists Depression Monitoring 05/09/2024 02/07/2024 , 11/03/2023, 04/10/2023, Additional history exists Imm-Zoster, Recombinant (1 of 2) 05/09/2024 Postponed from 07/25/2022 (Patient postponement) [id number] ( season) 2024 03/31/2023, 02/08/2022, 11/08/2021, Additional history exists Postponed from 12/03/2023 (Patient postponement) Imm-Influenza (#1) 2024 12/22/2022, 0 12/22/2021, 01/08/2021, Additional history exists Postponed from 12/03/2023 (Patient postponement) Syphilis Screening 12/12/2024 12/13/2023, 0 06/19/2023, 01/04/2023, Additional history exists Dental BW 01/18/2025 01/17/2024, 0308/2023, 12/16/2022, Additional history exists Dental Examination 01/18/2025 01/17/2024, 0 06/16/2023, 12/16/2022, Additional history exists Dental Perio Charting 01/18/2025 01/17/2024, 022 Dental Prophy 01/18/2025 01/17/2024, 03/08/2023, 12/16/2022, Additional history exists Diabetes Screening 02/06/2025 02/07/2024, 1 04/08/2023, 01/13/2024, Additional history exists Tobacco Screening 02/06/2025 02/07/2024, 01/17/2024 Dental FMX/Pano 05/01/2025 04/29/2020 Imm-DTaP/Tdap/Td (3 - Td or Tdap) 08/23/2025 08/24/2015, 11/01/1984 Imm-Meningococcal (3 - Risk 2-dose series) 08/23/2026 08/23/2021, 01/11/2017 Colonoscopy 02/10/2027 02/10/2017, 09/10/2015 Colorectal Cancer Screening 02/10/2027 Imm-Hepatitis A Completed 07/16/2010, 01/01/2010 Hepatitis B Screening Completed 11/17/2016, 016 Imm-Pneumococcal Completed 02/08/2022, , 08/24/2015, Additional history exists Hepatitis C Screening Completed 06/19/2023 , 07/11/2022, 08/03/2021, Additional history exists Imm-Hepatitis B Discontinued Imm-MMR Discontinued Procedures Procedure Name Priority Date/Time Associated Diagnosis Comments REFERRAL SCANNED DOCUMENT 05/01/2024 3:00 AM EST REFERRAL SCANNED DOCUMENT 04/11/2024 3:00 AM EST LAB SCANNED DOCUMENT 04/11/2024 3:00 AM EST REFERRAL SCANNED DOCUMENT 02/28/2024 3:00 AM EST IMAGING SCANNED DOCUMENT 02/28/2024 3:00 AM EST REFERRAL SCANNED DOCUMENT 02/12/2024 3:00 AM EST IMAGING SCANNED DOCUMENT 02/12/2024 3:00 AM EST HGA1C W/EAG Routine 02/07/2024 10:14 AM EST Prediabetes COMPREHENSIVE METABOLIC PANEL Routine 02/07/2024 10:14 AM EST Essential hypertension Prediabetes IMAGING SCANNED DOCUMENT 02/06/2024 3:00 AM EST COMP PERIODONTAL EVALUATION - NEW/EST PATIENT Routine 01/17/2024 1:00 PM EDT [facility] BITEWINGS - FOUR RADIOGRAPHIC IMAGES Routine 01/17/2024 1:00 PM EDT [facility] PROPHYLAXIS - ADULT Routine 01/17/2024 1 :00 PM EDT [facility] PERIODIC ORAL EVALUATION ESTABLISHED PATIENT Routine 01/17/2024 1:00 PM EDT [facility] RPR (MONITOR) W/REFL TITER Routine 12/13/2023 8:48 AM EDT HIV infection, unspecified symptom status (HCC-CMS) HEPATITIS C AB W/RFLX HCV RNA, QT, RT PCR Routine 06/19/2023 8:53 AM EDT HIV infection, unspecified symptom status (HCC-CMS) LIPIDS W RFLX TO DIRECT LDL Routine 04/10/2023 2:06 PM EST Essential hypertension Hypertriglyceridemi a COLONOSCOPY Routine 02/10/2017 8:55 AM EST Colon cancer screening HEPATITIS A,B,C PANEL Routine 11/17/2016 10:18 AM EDT Elevated LFTs from Last 3 Months or Most Recently Relevant to Health Maintenance Results * REFERRAL SCANNED DOCUMENT (05/01/2024 3:00 AM EST) Only the most recent of4 resultswithin the time period is included. 05/01/2024 3:00 AM EST Sierra Reinoso PA-C SCAN REFERRAL Final Result * LAB SCANNED DOCUMENT (04/11/2024 3:00 AM EST) 04/11/2024 3:00 AM EST Sierra Reinoso PA-C SCAN LAB Final Result * IMAGING SCANNED DOCUMENT (02/28/2024 3:00 AM EST) Only the most recent of3 resultswithin the time period is included. 02/28/2024 3:00 AM EST us Sierra Reinoso PA-C SCAN IMAGING Final Result * (ABNORMAL) HGA1C W/EAG (02/07/2024 10:14 AM EST) HEMOGLOBIN A1C 6.1(H) <5.7 % of total Hgb [facility] Comment: For someone without known diabetes, a hemoglobin A1c value between 5.7% and 6.4% is consistent with prediabetes and should be confirmed with a follow-up test. For someone with known diabetes, a value <7% indicates that their diabetes is well controlled. A1c targets should be individualized based on duration of diabetes, age, comorbid conditions, and other considerations. This assay result is consistent with an increased risk of diabetes. Currently, no consensus exists regarding use of hemoglobin A1c for diagnosis of diabetes for children. EAG (MG/DL) 128 mg/dL [facility] EAG (MMOL/L) 7.1 mmol/L [facility] Blood Blood / Unknown 02/07/2024 1 0:14 AM EST 02/07/2024 10:14 AM EST Narrative [facility] - 02/08/2024 8:06 AM EST FASTING:YES us Sierra Reinoso PA-C LAB - BLOOD DRAW Final Resul t [facility] [address] [address], [facility] [address] [place] [address] * COMPREHENSIVE METABOLIC PANEL (02/07/2024 10:14 AM EST) GLUCOSE 84 65 - 99 mg/dL [facility] Comment: ?Fasting reference interval UREA NITROGEN (BUN) 12 7 - 25 mg/dL [facility] CREATININE (blood) 1.01 0.70 - 1.30 mg/dL [facility] EGFR 91 > OR = 60 mL/min/1. 73m2 [facility] BUN/CREATININE RATIO SEE NOTE: [facility] Comment: ?? Not Reported: BUN and Creatinine are within ?? reference range. ? SODIUM 138 135 - 146 mmol/L [facility] POTASSIUM 4.5 3.5 - 5.3 mmol/L [facility] CHLORIDE 103 98 - 110 mmol/L [facility] CARBON DIOXIDE 28 20 - 32 mmol/L [facility] CALCIUM 9.3 8.6 - 10.3 mg/dL [facility] PROTEIN, TOTAL 7.5 6.1 - 8.1 g/dL [facility] ALBUMIN 4.6 3.6 - 5.1 g/dL [facility] GLOBULIN 2.9 1.9 - 3.7 g/dL (calc) [facility] ALBUMIN/GLOBULI N RATIO 1.6 1.0 - 2.5 (calc) [facility] BILIRUBIN, TOTAL 0.3 0.2 - 1.2 mg/dL [facility] ALKALINE PHOSPHATASE 64 35 - 144 U/L [facility] AST 22 10 - 35 U/L [facility] ALT 29 9 - 46 U/L [facility] Blood Blood / Unknown 02/07/2024 1 0:14 AM EST 02/07/2024 10:14 AM EST Narrative [facility] - 02/08/2024 8:06 AM EST FASTING:YES Sierra Reinoso PA-C LAB - BLOOD DRAW Edited Resu lt - Final [facility] [address] [address], [facility] [address] [address] * RPR (MONITOR) W/REFL TITER (12/13/2023 8:48 AM EDT) RPR (MONITOR) W/REFL TITER NON-REACT ELIAS NON-REACT ELIAS [facility] Blood Blood / Unknown 12/13/2023 8 :48 AM EDT 12/13/2023 8:48 AM EDT Narrative [facility] - 12/16/2023 9:29 PM EDT FASTING:YES Roya Eaton PA-C LAB - BLOOD DRAW Edited Resu lt - Final Performing Organization Address [facility] Co de Phone Number [facility] [address] [address], [employer] [address] [address] * HEPATITIS C AB W/RFLX HCV RNA, QT, RT PCR (06/19/2023 8:53 AM EDT) Pathologist [facility] HEPATITIS C ANTIBODY NON-REACT ELIAS NON-REACT ELIAS [facility] Comment: HCV antibody was non-reactive. There is no laboratory evidence of HCV infection. In most cases, no further action is required. However, if recent HCV exposure is suspected, a test for HCV RNA (test code 67209) is suggested. For additional information please refer to http://[employer].Shipster/faq/IEN66b4 (This link is being provided for informational/ educational purposes only.) Blood Blood / Unknown 06/19/2023 8 :53 AM EDT 06/19/2023 8:54 AM EDT [facility] - 06/23/2023 1:53 PM EDT FASTING:YES Roya Eaton PA-C LAB - BLOOD DRAW Edited [facility] lt - Final Performing Organization Address [facility] de Phone Number [facility] [address] [address], [employer] [address] [address] * (ABNORMAL) LIPIDS W RFLX TO DIRECT LDL (04/10/2023 2:06 PM EST) [facility] CHOLESTEROL, TOTAL 149 <200 mg/dL [facility] HDL CHOLESTEROL 39(L) > OR = 40 mg/dL [facility] TRIGLYCERIDES 246(H) <150 mg/dL [facility] Comment: If a non-fasting specimen was collected, consider repeat triglyceride testing on a fasting specimen if clinically indicated. Ketan et al. J. of Clin. Lipidol. 2015;9:129-169. LDL-CHOLESTEROL 76 99 mg/dL (calc) [facility] Comment: Reference range: <100 Desirable range <100 mg/dL for primary prevention; ?? <70 mg/dL for patients with CHD or diabetic patients with > or = 2 CHD risk factors. LDL-C is now calculated using the Katiuska calculation, which is a validated novel method providing better accuracy than the Friedewald equation in the estimation of LDL-C. Roman SS et al. DAMON. 2013;310(19): 1271-9026 (http://education.[employer]/faq/NBD565) CHOL/HDLC RATIO 3.8 <5.0 (calc) [facility] NON-HDL CHOLESTEROL 110 <130 mg/dL (calc) [facility] Comment: For patients with diabetes plus 1 major ASCVD risk factor, treating to a non-HDL-C goal of <100 mg/dL (LDL-C of <70 mg/dL) is considered a therapeutic option. Blood Blood / Unknown 04/10/2023 2 :06 PM EST 04/10/2023 2:06 PM EST us Sierra Reinoso PA-C LAB - BLOOD DRAW Final Resul t [facility] [address] [place] [id number], [facility] [address] [address] * COLONOSCOPY (02/10/2017 8:55 AM EST) Impressions Roya Eaton PA-C - 02/10/2017 8:55 AM EST Colonoscopy 02/10/17 at [facility] by Dr Acosta for rectal bleeding. Findings; diverticulosis, hemorrhoids. 1 polyp noted and resected. Pathology: colon: tubular adenoma, esophageal brushing negative for malignant cells. Advised to repeat colonoscopy in 5 years. Provider Ochin PROCEDURES Final Result * (ABNORMAL) HEPATITIS A,B,C PANEL (11/17/2016 10:18 AM EDT) HEPATITIS B SURFACE ANTIBODY POSITIVE(A) NEGATIVE [facility] HEPATITIS B SURFACE ANTIGEN NEGATIVE NEGATIVE [facility] Comment: Over the counter supplements containing high doses of biotin may interfere with this assay. ??If interference is suspected, patients shoud be retested after refraining from biotin supplements for 72 hours. HEPATITIS C VIRUS DIAGNOSTIC NEGATIVE NEGATIVE [facility] HEPATITIS B CORE ANTIBODY NEGATIVE NEGATIVE [facility] HEPATITIS A ANTIBODY TOTAL POSITIVE(A) NEGATIVE [facility] Comment: Over the counter supplements containing high doses of biotin may interfere with this assay. ??If interference is suspected, patients shoud be retested after refraining from biotin supplements for 72 hours. Blood specimen (specimen) Blood / Unknown 11/17/2016 10:18 AM EDT 11/17/2016 11:01 AM EDT Narrative [facility] - 11/17/2016 12:58 PM EDT [facility] [address] [place] [address] PT ID [id number] ORD# [id number] Joyce Busch SECOND TIME WORKER LAB - BLOOD DRAW Edited R esult - Final [facility] [address] [place] [address], from Last 3 Months or Most Recently Relevant to Health Maintenance [place] D[place]AF[place] DENTAL [place] [employer] [address] [employer] Care Teams Baggage Handling Supervisor Relationship Specialty Start Date End Date Sierra Reinoso PA-C [address] [place] [id number] PCP - General Internal Medicine 05/04/20
[2024-05-14 13:48] LABS: Vitamin D 25-OH, D2 <4 ng/mL; Vitamin D 25-OH, D3 8 ng/mL; Vitamin D 25-OH, Total 8 ng/mL (30-100)
== END 2024-05-07 10:46 | disposition home or self-care (01) ==
LOC: HO.HKASLDS 10:45
PROVIDERS: Visit Provider Nurse Practitioner Family
DX: R51.9 Headache, unspecified (principal); G89.29 Other chronic pain; R53.83 Other fatigue; M25.50 Pain in unspecified joint
CPT/HCPCS: 36415; 82306

== ENCOUNTER 2024-07-02 08:35 | Outpatient (REF) | payer MEDICAID, SELFPAY ==
--- OUTSIDE RECORDS SUMMARY | 2024-07-02 08:56 | XMS_ITS | Encounter Summary ---
Author Organization [facility] Address [address] [place] [address] Care Team Providers Care Sales Floor Associate Name Role Phone Sierra Reinoso PA-C Primary Care Provider [phone] Encounter Details Date Type Department Care Team (Late st Contact Info) Description 01/17/2024 Patient Outreach [facility] [address] [place] [address] Kory Garcia, Community Health Worker [address] [place] [phone] Social History Tobacco Use Types Packs/Day Years Used Date Smoking Tobacco: Former Cigarettes 1 29.9 S tarted: 08/02/1994 Smokeless Tobacco: Former Quit: [...] Care Team (Late st Contact Info) Description 07/18/2024 9:00 AM EDT Office Visit [facility] [address] [place] [address] [place] [address] 07/26/2024 9:00 AM EDT Office Visit [facility] [address] [place] [phone] Rell Dennison, FlorD [address] [place] [address] documented as of this encounter Visit Diagnoses Not on filedocumented in this encounter Additional Health Concerns Assessment Noted Time PHQ-9 Depression Total Score: 14 024 9:08 AM PDT documented as of this encounter Care Teams Sales Floor Associate Relationship Specialty Start Date End Date Sierra Reinoso PA-C [facility] [place] [address] PCP - General Internal Medicine 05/04/20 documented as of this encounter
--- OUTSIDE RECORDS SUMMARY | 2024-07-02 08:57 | XMS_ITS | Clinical Summary ---
Author Organization [address] [facility] Address [address] [place] [address] Phone Care Team Providers Care Lathe Spotter Name Role Phone Sierra Reinoso Primary Care Provider Allergies No known active allergies Medications abacavir-dolute gravir-lamiVUDi ne (Triumeq) 600-50-300 mg per tablet Take 1 tablet by mouth 1 (one) time each day. Active acetaminophen (TYLENOL) 325 mg tablet Take 2 tablets (650 mg total) by mouth every 4 (four) hours if needed for moderate pain or headaches. 3 Active albuterol 2.5 mg /3 mL (0.083 [...] mouth 1 (one) time each day. Active budesonide-form oteroL (SYMBICORT) 160-4.5 mcg/actuation inhaler 2 puffs 1 (one) time each day. 3 Active buPROPion XL (WELLBUTRIN XL) 300 mg 24 hr tablet 1 tablet (300 mg total) 1 (one) time each day. Active clonazePAM (KlonoPIN) 1 mg tablet Take 1 tablet (1 mg total) by mouth 3 (three) times a day. Active cyclobenzaprine (FLEXERIL) 10 mg tablet Take 1 tablet (10 mg total) by mouth 2 (two) times a day if needed. 4 Active gabapentin (NEURONTIN) 300 mg capsule Take 1 capsule (300 mg total) by mouth at bedtime. Active lidocaine (LIDODERM) 5 % patch Place 1 Patch onto the skin every 24 hours. Apply for no more than 12 hours in any 24 hour period. Active loratadine (CLARITIN) 10 mg tablet Take 1 tablet (10 mg total) by mouth 1 (one) time each day. Active losartan-hydroC HLOROthiazide (HYZAAR) 50-12.5 mg per tablet Take 1 [...] 1 (one) time each day before breakfast. 2 Active PARoxetine (PAXIL) 40 mg tablet 1 tablet (40 mg total) 1 (one) time each day in the morning. Active rosuvastatin (CRESTOR) 10 mg tablet Take 1 tablet (10 mg total) by mouth 1 (one) time each day. 3 Active tiotropium (SPIRIVA) 18 mcg per inhalation [...] Max Daily Amount: 20 mg 15 tablet 5 Active acetaminophen (TYLENOL) 500 mg tablet Take 2 tablets (1,000 mg total) by mouth every 6 (six) hours if needed for mild pain. 60 tablet 5 Active ibuprofen (ADVIL,MOTRIN) 600 mg tablet Take 1 tablet (600 mg total) by mouth every 8 (eight) hours if needed for mild pain. 60 tablet 5 Active oxyCODONE (ROXICODONE) 5 mg immediate release tablet Take 1 tablet (5 mg total) by mouth every 6 (six) hours if needed for severe pain. Max Daily Amount: 20 mg 15 tablet 5 Active Active Problems Problem Noted Date Diagnosed Date [...] on the left. Flow-voids in the adjacent upper [place] of [place] are preserved. Hallux valgus of [...] Carrillo. In the meantime use Proctozone cream TN BID x 14 days Chronic GERD 02/01/2017 Gout 01/15/2017 Overview (01/03/2024): 12/29/16 [facility] ED for L great toe pain. Xray neg for fracture. Dx: gout, Tx: Indomethacin Major depressive disorder, r ecurrent episode with anxious distress 05/16/2016 Overview (01/03/2024): F/U [place] Lumbar nerve root impingement 11/28/2015 Overview (01/03/2024): Nov 2015 - Mild arthritis changes of lumbar spine seen on xray [facility] and Ct abd/pelv [facility] august 2015. MRI June shows L5/S1 broad-based left paracentral protrusion, which compresses the descending S1 nerve root with moderate L neural foraminal stenosis. 09/09/16 Eval by SLICK Cox at [facility]. Has just begun injection therapy. Will have him finish injections and f/u shortly thereafter. 10/05/16 Radiofrequency lesioning at [facility] 10/10/16 Epidural steroid injection 12/13/16 [facility], f/u from L4-5 LESI [...] planned. Asthma 05/26/2015 Overview (01/03/2024): 02/15/18 - [facility] Pulm F/U: IMPRESSION: Severe persistent asthma with acute exacerbation will give a course of prednisone and a course of amocicillin for 7 days to continue with symbicort 160/4.5, 2 puffs q12h Spiriva 18mcg daily and albuterol as needed. HIV (human immunodeficiency virus infection) Overview (01/03/2024): Diagnosed 1997 in [place] [id number] negative per lab on 05/26/15 05/12/17 [facility] ID, Dr Griffith, Anal Pap and rectal GC/Chalm screening, pharyngeal GC/Chlam screening. Anal PAP neg for intraepithelial lesion or malignancy. HTN (hypertension) 05/26/2015 Overview (01/03/2024): Last Assessment & Plan: Well-controlled. Continue current regimen. Syphilis, latent 05/26/2015 Overview (01/03/2024): PCN injections x3 June 2015 Encounters Date Type Department Care Team Description 05/15/2024 10:30 AM EST Office Visit General [facility] [address] [phone] Destin Vasques, DO Status post umbilical hernia repair, follow-up exam (Primary Dx) 05/06/2024 1:45 PM EST Consult Orthopedic Surgery [facility] [address] [phone] Krish Harp MD Myofascial pain (Primary Dx); Pain in left shoulder 05/03/2024 10:30 AM EST - 05/03/2024 12:00 PM EST Surgery [facility] [place] [address] [place] [phone] Destin Vasques, DO OPEN REPAIR UMBILICAL HERNIA [[id number] (CPT??)] 05/03/2024 8:27 AM EST Anesthesia Event [facility] [place] [address] [place] [phone] Juno Gao DO Dasilva, John E, MD 05/03/2024 7:45 AM EST - 05/03/2024 11:48 AM EST Hospital Encounter [facility] [place] [address] [place] [phone] Destin Vasques, DO Umbilical hernia without obstruction or gangrene Discharge Disposition: Home or Self Care 05/03/2024 Telephone General Surgery [address] [phone] Destin Vasques, DO Advice Only 04/29/2024 Telephone General [facility] [address] [phone] Destin Vasques, DO Prior Authorization (05/03/24 Dr. Destin Vasques) 04/09/2024 Telephone Orthopedics - [place] [address] [place] [address] Ngozi Golden from Last 3 Months Immunizations Name Administration [...] ial hypertension Human immunodeficiency virus (HIV) disease ([facility]) DX:Human immunodeficiency vi michael (HIV) disease ([facility]) Right foot pain DX:Right foot pa in Hyperlipidemia Diabetes mellitus ([facility]) GERD (gastroesophageal reflux disease) HIV (human immunodeficiency virus infection) ([facility]) Depression Anxiety Neuromuscular disorder ([facility]) Arthritis Joint pain Degeneration of intervertebr al [...] or Owens 04/30/2024 5: 22 PM EST Obstetrics History Last Filed Vital Signs Vital Sign Reading Time Taken Comments Blood Pressure 145/88 05/15/2024 9:28 AM EST Pulse 73 05/15/2024 9:28 AM EST Temperature 36.2 ??C (97.2 ??F) 05/03/2024 11:[address] Respiratory Rate 18 05/03/2024 11:00 AM EST Oxygen Saturation 99% 05/03/2024 11:00 AM EST Inhaled Oxygen Concentration - - Weight 102 kg (225 lb 8 oz) 05/15/2024 9:[address] Height 175.3 cm (5' 9.02 ) 05/15/2024 9:28 AM ES T Body Mass Index 33.28 05/15/2024 9:28 AM EST Plan of Treatment Upcoming Encounters Date Type Department Care Team (Late st Contact Info) Description 08/12/2024 9:00 AM EDT Office Visit General Surgery - [place] 175 [facility] [address] [place] [phone] Destin Vasques, 175 [facility] [place] [address] [place] [phone] Health Maintenance Due Date Last Done Comments Hepatitis B Vaccines (1 of 3 - 19+ 3-dose series) 1992 Colorectal Cancer Screening: Colonoscopy 03/13/2022 Social Influencers of Health Screening 03/13/2022 MMR Vaccines (1 of 2 - Risk 2-dose series) 06/27/2022 Zoster Vaccines (1 of 2) 07/25/2022 05/30/2022, 02/02 COVID-19 Vaccine ( season) 2023 03/31/2023, 02/08/2022, 11/08/2021, Additional history exists Depression Screening 02/06/2025 02/07/2024 Hypertension/CHF/CAD Annual BMP Blood Test 02/06/2025 02/07/2024, 01/13/2024, 12/13/2023, Additional history exists DTaP,Tdap,and Td Vaccines (3 - Td or Tdap) 08/23/2025 08/24/2015, 11/01/1984 Meningococcal ACWY Vaccine (3 - Risk 2-dose series) 08/23/2026 08/23/2021, 01/11/2017 Cholesterol Screening (Lipid Panel) 04/10/2028 04/10/2023, 04/10/2023, 09/02/2022, Additional history exists Hepatitis A Vaccines Completed 07/16/2010, 01/02/20 10 Pneumococcal Vaccine: 50+ Years Completed 02/08/2022, 11/17/2016, 08/24/2015, Additional history exists Pneumococcal Vaccine: Pediatrics (0 to 5 Years) and At-Risk Patients (6 to 64 Years) Completed 02/08/2022, 11/17/2016, 08/24/2015, Additional history exists Varicella Vaccines Aged Out 05/30/2022, 02/28/2022 No longer eligible based on patient's age to complete this topic Hepatitis C Screening Completed 06/19/2023 , 06/19/2023, 06/25/2018, Additional history exists Influenza Vaccine Completed 05/10/2024, , 12/22/2021, Additional history exists HIB Vaccines Aged Out No longer eligi ble based on patient's age to complete this topic HPV Vaccines Aged Out No longer eligi ble based on patient's age to complete this topic IPV Vaccines Aged Out No longer eligi ble based on patient's age to complete this topic Meningococcal B Vacine Aged Out No lo nger eligible based on patient's age to complete this topic RSV Immunization Patients Under 20 months Aged Out No longer eligible based on patient's age to complete this topic Medical Devices Implanted Type Area Magnetic Observer Device Identifier Shelf Expiration Date Model / Serial / Lot Ventralex Hernia Patch Implanted:Qty: 1 on 05/03/2024 by Destin Vasques DO at [facility] N/A: Abdomen OTHER 10/28/2025 [id number] / NONE / [id number] Description:BARD Procedures Procedure Name Priority Date/Time Associated Diagnosis Comments XR SHOULDER 2+ VIEWS LEFT Routine 05/06/2024 1:30 PM EST Pain OXYGEN THERAPY, ADULT Routine 05/03/2024 9:50 AM EST OXYGEN THERAPY, ADULT Routine 05/03/2024 9:50 AM EST TISSUE EXAM Routine 05/03/2024 9:31 AM EST Umbilical hernia without obstruction or gangrene TH AN ENDOTRACHEAL(NO CHARGE) Routine 05/03/2024 9:02 AM EST TN REPR ANT ABD HERNIA(S) ANY APPR INIT INCL IMPL < 3 CM REDUCIBLE 05/03/2024 8:42 AM EST Umbilical hernia without obstruction or gangrene Case Notes [employer]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 Krish Harp MD IMG XR PROCEDURES Final Result * Tissue exam (05/03/2024 9:31 AM EST) Final Diagnosis A. Abdominal Wall, Umbilical hernnia sac: - Benign mesothelial-lined fibroadipose tissue, compatible with hernia sac. 05/06/2024 12:21 PM EST [facility] Gross Description A. Abdominal Wall, Umbilical hernnia sac: Labeled umbilical, ABD wall . Received in formalin is a 3.4 x 2.1 x 0.3 cm irregular disrupted pink-white membranous tissue fragment with minimal attached adipose tissue. No mass lesions are appreciated. A medicare sales representative section is submitted one cassette, one piece. LOLITA 05/06/2024 12:21 PM EST [facility] Disclaimer Unless otherwise specified, all tissue is 10% NB formalin fixed and paraffin embedded. 05/06/2024 12:21 PM EST [facility] Tissue Abdominal wall / Unknown 05/03/2024 9:31 AM EST 05/03/2024 10:40 AM EST us Destin Vasques DO LAB PATHOLOGY ORDERABLES Final Result [facility]) [facility] [address] [place] [address], * TH AN ENDOTRACHEAL(NO CHARGE) (05/03/2024 9:02 AM EST) Narrative Paloma Vitale CRNA - 05/03/2024 9:02 AM EST Paloma Vitale CRNA ? 05/03/2024 ??9:03 AM General Information and Staff Patient location during procedure: OR Resident/DIRECTOR TITLE: Paloma Vitale CRNA Performed: resident/DIRECTOR TITLE/CAA Performed by: Paloma Vitale CRNA Authorized by: [...] 05/03/2024 8:48 AM Nash Haynes MD ANESTHESIA ORDERABLES Final Re sult * (ABNORMAL) POCT Glucose, blood (05/03/2024 7:59 AM EST) [facility] Glucose POCT 120(H) 70 - 100 mg/dL 05/03/2024 8:00 AM EST [facility] Blood Capillary blood specimen / Unknown 05/03/2024 7:59 AM EST 05/03/2024 8:01 AM EST Destin Vasques DO LAB POINT OF CARE TE ST DOCKED DEVICE UNSOLICITED RESULTS Final Result [facility] [address] [place] [address], [place] [phone] * Annual BMP Blood Test (11/03/2023) [facility] Annual BMP Blood Test Abstracted Historical Provider HEALTH MAINTENANCE Final Result * Hepatitis C Screening (06/19/2023) [facility] Hepatitis C Screening Abstracted Historical Provider HEALTH MAINTENANCE Final Result * Lipid panel (04/10/2023) [facility] Triglycerides 0 mg/dL Comment:no interpretation Cholesterol 0 mg/dL Comment:no interpretation HDL 0 mg/dL Comment:no interpretation LDL Cholesterol 0 mg/dL Comment:no interpretation Blood Venous blood specimen / Unknown us Historical Provider LAB BLOOD ORDERABLES Solange l Result from Last 3 Months or Most Recently Relevant to Health Maintenance Insurance MEDICAID - [place] Advance Directives * Full Code - Default [...] currently active code status orders. Care Teams Lathe Spotter Relationship Specialty Start Date End Date Sierra Reinoso PA [address] [place] [address] PCP - General 08/06/21
--- OUTSIDE RECORDS SUMMARY | 2024-07-02 08:57 | XMS_ITS | Clinical Summary ---
Author Organization [facility] Address [address] [place] [address] Care Team Providers Care [employer] Account Executive Name Role Phone Sierra Reinoso PA-C Primary Care Provider [phone] Source Comments PLEASE NOTE, if this patient is a minor, it may be UNLAWFUL to discuss sensitive information that is contained in these records (such as FAMILY PLANNING, MENTAL HEALTH or SUBSTANCE ABUSE) with the minor patient's parent or other person without the patient's specific authorization.[facility] Allergies No known active allergies Medications buPROPion HCL (WELLBUTRIN XL) 300 mg 24 hr tablet Take 300 mg by mouth once daily 021 Active blood pressure monitorIndications: Essential hypertension Please check blood pressure at home twice a day. Dx: I10. Need: lifetime 1 Kit 021 Active inhalational spacing deviceIndications:I ntermittent asthma, unspecified asthma severity, unspecified whether complicated ([facility]) Use to administer Symbicort 1 Each 021 Active omeprazole (PRILOSEC) [address] capsuleIndications: HIV (human immunodeficiency virus infection) ([facility]) EMILIA 2 CAPSULAS POR LA BOCA POR LA MANANA ANTES DEL DESAYUNO 90 Capsule 024 Active abacavir-dolutegrav ir-lamivud (TRIUMEQ) 600-50-300 mg tabIndications:HIV infection, unspecified symptom status ([facility]) Take 1 Tablet by mouth once daily 30 Tablet 11 024 Active rosuvastatin (CRESTOR) 10 mg tabletIndications:H ypertriglyceridemia Take 1 Tablet by mouth nightly at bedtime 90 Tablet 2 024 Active VENTOLIN HFA 90 mcg/actuation inhalerIndications: Moderate persistent asthma without complication (HHS-HCC) USAR 2 INHALACIONS POR LA BOCA CADA 4 HORAS CUANDO SEA NECESARIO PARA DIMPLE O RESPIRACION CORTA 18 g 2 024 Active SPIRIVA WITH HANDIHALER 18 mcg capsule for inhalerIndications: Chronic obstructive pulmonary disease, unspecified COPD type (HCC-CMS),Moderate persistent asthma without complication (HHS-HCC) INHALAR EL CONTENIDO DE 1 CAPSULA A TRAVES DE HANDIHALER DIARIAMENTE. USAR 2 INHALACIONS DE 1 CAPSULE PARA CADA DOSIS 90 Capsule 1 024 Active SYMBICORT 160-4.5 mcg/actuation inhalerIndications: Moderate persistent asthma without complication (HHS-HCC) USAR 2 INHALACIONS POR LA BOCA 2 VECES AL ALCIDES 30.6 g 1 024 Active montelukast (SINGULAIR) 10 mg tabletIndications:C hronic obstructive pulmonary disease, unspecified COPD type (HCC-CMS),Moderate persistent asthma without complication (HHS-HCC) [place] 1 tableta por vIa oral todas las noches antes de acostarse 90 Tablet 024 Active blood sugar diagnostic stripsIndications:P rediabetes 1 Each daily. Freestyle lite strips to check sugar daily. 100 Each 3 Active blood-glucose meter monitoring kitIndications:Pred iabetes daily. Freestyle lite glucose monitor to check sugar daily. 1 Each 024 Active alcohol swabsIndications:Pr ediabetes Clean are before checking sugar at home, 100 Each 1 024 Active lancetsIndications: Prediabetes daily. Lancets to check sugar level daily. 100 Each 3 024 Active allopurinoL (ZYLOPRIM) 100 mg tabletIndications:E ssential hypertension EMILIA 1 TABLETA POR LA BOCA ZI VEZ ALL ALCIDES 90 Tablet 024 Active DEEP SEA NASAL 0.65 % nasal sprayIndications:Na shirin congestion PLACE 1 SPRAY INTO THE NOSTRIL(S) NEEDED FOR CONGESTION 44 mL 4 024 Active lithium carbonate 300 mg capsule Take 300 mg by mouth 2 (two) times daily (Prescribed by Dr. Luis-Riley palacios - psych) Active CARAFATE 100 mg/mL suspension Prescribed by [facility] 024 Active ibuprofen 800 mg tabletIndications:L eft foot pain EMILIA 1 TABLETA POR LA BOCA NICO VECES AL ALCIDES RUDDY SEA NECESARIO 90 Tablet 3 024 Active acetaminophen (TYLENOL) 325 mg tablet TAKE 2 TABLETS BY MOUTH EVERY 6 HOURS NEEDED FOR PAIN (MILD TO MODERATE PAIN) FOR UP TO 10 DAYS. 80 Tablet 3 024 Active tadalafiL (CIALIS) 10 mg tablet 024 Active albuterol (PROVENTIL) 2.5 mg /3 mL (0.083 %) nebulizer solution 024 Active zolpidem (AMBIEN CR) 12.5 mg CR tablet Take 12.5 mg by mouth nightly at bedtime as needed (Prescribed by psych) Active clonazePAM (KLONOPIN) 1 mg tablet Take 1 Tablet by mouth 3 (three) times daily as needed for anxiety (Prescribed by psychiatrist) 024 Active loratadine (CLARITIN) 10 mg tablet EMILIA 1 TABLETA POR LA BOCA TODAS LAS NOCHES 90 Tablet 1 024 Active clotrimazole-betame thasone (LOTRISONE) 1-0.05 % cream 025 Active gabapentin (NEURONTIN) 300 mg capsule 025 Active predniSONE (DELTASONE) 10 mg tablet 025 Active losartan-hydrochlor othiazide (HYZAAR) 50-12.5 mg per tabletIndications:E ssential hypertension Take 1 Tablet by mouth every morning For blood pressure. 90 Tablet 1 025 Active nebivoloL (BYSTOLIC) 5 mg tabletIndications:E ssential hypertension Take 1 Tablet by mouth every evening For blood pressure 90 Tablet 1 025 Active NIFEdipine (PROCARDIA XL) 60 mg 24 hr tabletIndications:E ssential hypertension Take 1 Tablet by mouth every morning For blood pressure 90 Tablet 1 025 Active pantoprazole (PROTONIX) 40 mg EC tablet Take 1 Tablet by mouth 2 (two) times daily (Prescribed by [facility]) 025 Active PARoxetine (PAXIL) 20 mg tablet Take 20 mg by mouth every morning (Prescribed by psych - Dr. Coleen palacios) 025 Active fluticasone (FLONASE) 50 mcg/actuation nasal sprayIndications:Ch ronic obstructive pulmonary disease, unspecified COPD type (HCC-CMS) COLOQUE 1 SPRAY EN AMBOS FOSAS NASALES ZI VEZ AL ALCIDES JASEN SEA NECESARIO PARA RINITIS 16 g 025 Active diclofenac sodium (VOLTAREN) 1 % gelIndications:Lumb ar nerve root impingement APLICAR TOPICAMENTE 2 VECES ALL ALCIDES A LA RODILLA DERECHA O PARA LA ESPALDA 100 g 025 Active cyclobenzaprine (FLEXERIL) 10 mg tabletIndications:N radha pain,Muscle spasm EMILIA 1 TABLETA POR LA BOCA NICO VECES AL ALCIDES RUDDY SEA NECESARIO PARA ESPASMOS MUSCULARES 90 Tablet 025 Active meclizine (ANTIVERT) 25 mg tabletIndications:D izziness EMILIA 1 TABLETA POR LA BOCA 2 VECES AL ALCIDES RUDDY SEA NECESARIO PARA MAREO 20 Tablet 025 Active metFORMIN (GLUCOPHAGE) 500 mg tabletIndications:P rediabetes EMILIA 1 TABLETA POR LA BOCA 2 VECES AL ALCIDES CON COMIDA PARA LA PREVENCION DE LA DIABETES 180 Tablet 025 Active lidocaine (LIDODERM) 5 % patchIndications:Ne ck pain APPLY 1 PATCH ONTO THE SKIN FOR 12 HOURS ON AND THEN LEAVE OFF FOR 12 HOURS 90 Patch 1 025 Active metFORMIN (GLUCOPHAGE) 500 mg tabletIndications:P rediabetes Take 1 Tablet by mouth 2 (two) times daily with a meal For diabetes prevention. 180 Tablet 024 2024 Discontinued lidocaine (LIDODERM) 5 % patchIndications:Ne ck pain APPLY 1 PATCH ONTO THE SKIN FOR 12 HOURS ON AND THEN LEAVE OFF FOR 12 HOURS 90 Patch 1 024 2024 Discontinued meclizine (ANTIVERT) 25 mg tabletIndications:D izziness EMILIA 1 TABLETA POR LA BOCA 2 VECES AL ALCIDES RUDDY SEA NECESARIO PARA MAREO 20 Tablet 025 2024 Discontinued cyclobenzaprine (FLEXERIL) 10 mg tabletIndications:N radha pain,Muscle spasm EMILIA 1 TABLETA POR LA BOCA NICO VECES AL ALCIDES RUDDY SEA NECESARIO PARA ESPASMOS MUSCULARES 90 Tablet 025 2024 Discontinued Active Problems Problem Noted Date Diagnosed Date Umbilical hernia without obstruction and without gangrene 02/07/2024 Prediabetes 07/05/2023 Glaucoma of both eyes 07/05/2023 Pituitary macroadenoma (HCC-CMS) 02/18/2021 Overview (05/17/2024): Follows with [facility] Neurology and endocrinology 10/26/23 MRI Brain and Pituitary W+W/O contrast Unchanged 1 cm nonenhancing complex cystic lesion in the left superior sella/suprasellar cistern, inseparable from the infundibulum and superior aspect of the pituitary gland. Differential considerations again include proteinaceous or hemorrhagic Rathke's cleft cyst or cystic pituitary adenoma. Suggest continued follow-up. Result type:MRI Exam Not Completed Neuro Result date:11/10/2020 20:08 Show Details RESULT: MRI Exam Not Completed Neuro MRI exam not completed Neuro HISTORY: Pituitary mass is seen on CT. COMPARISON: CT head, 09/08/2020. CTA of the head and neck, 09/17/2020. FINDINGS/IMPRESSION: MRI of the pituitary gland was attempted, though only sagittal T1 and coronal T2 sequences could be obtained. Patient was unable to complete the exam due to anxiety. The sella turcica is normal in size. [...] on the left. Flow-voids in the adjacent morongo of Chao are preserved. Hallux valgus of [...] Carrillo. In the meantime use Proctozone cream ND BID x 14 days Samantha esophagitis ([facility]) 04/30/2017 Overview (07/23/2017): Noted on endoscopy 02/10/[address] [facility]. Advised will start on antifungal tx. 03/24/17 - [facility] GI: F/U for EGD-colonoscopy results: Samantha esophagitis due to steroid inhaler as he was not rinsing his mouth after use. Colonoscopy: 1 adenomatous polyp , and high risk for colon cancer. Repeat 5 years. 07/12/17 - seen by [facility] for odynophagia and dysphagia : uncertain why pt is back at [facility]. He was previously seen by GI at [facility] back in 2016 and had a EGD at that time. F/U with primary GI at [facility]. H/O colonoscopy 04/30/2017 Overview (12/19/2017): Colonoscopy 02/10/[address] [facility] by Dr Acosta for rectal bleeding. Findings; diverticulosis, hemorrhoids. 1 polyp noted and resected. Pathology: colon: tubular adenoma, esophageal brushing negative for malignant cells. Advised to repeat colonoscopy in 5 years. Gout 01/15/2017 Overview (01/15/2017): 12/29/16 [facility] ED for L great toe pain. [...] sleep study. Sx's atypical for angina. 03/31/18 [facility] ED for CP. EKG is NSR, placed on Holter. Consult Dr Benites, advised f/u with cardiology and PCP. 10/03/17 - cardiology F/U: no clinical recurrence suggestive of [...] disorder, r ecurrent episode with anxious distress ([facility]) 05/16/2016 Overview (06/26/2018): F/U [place] Class 1 obesity due to exces s calories with serious comorbidity and body mass index (BMI) of 33.0 to 33.9 in adult 01/01/2016 Low back pain - Lumbar nerve root impingement S1 via MRI 07/19/17 11/28/2015 Overview (06/26/2018): Nov 2015 - Mild arthritis changes of lumbar spine seen on xray [facility]. MRI June shows L5/S1 broad-based left paracentral protrusion, which compresses the descending S1 nerve root with moderate L neural foraminal stenosis. 09/09/16 Eval by SLICK Cox at [facility]. Has just begun injection therapy. Will have him finish injections and f/u shortly thereafter. 10/05/16 Radiofrequency lesioning at [facility] 10/10/16 Epidural steroid injection 12/13/16 [facility], f/u from L4-5 LESI [...] or malignancy. HIV (human immunodeficiency virus infection) ([facility]) 05/26/2015 Overview (07/18/2017): Diagnosed 1997 [place] [id number] negative per lab on 05/26/15 05/12/17 [facility] ID, Dr Griffith, Anal Pap and rectal GC/Chalm screening, pharyngeal GC/Chlam screening. Anal PAP neg for intraepithelial lesion or malignancy. Asthma (HHS-HCC) 05/26/2015 Overview (02/26/2018): 02/15/18 - [facility] Pulm F/U: IMPRESSION: Severe persistent asthma with acute exacerbation will give a course of prednisone and a course of amocicillin for 7 days to continue with symbicort 160/4.5, 2 puffs q12h Spiriva 18mcg daily and albuterol as needed. Essential hypertension 05/26/2015 Overview (05/17/2024): Family cardiac hx: mother HTN, father HTN/MN, sister HTN/MN, sister MN x2/stent, 2 brothers who had HTN 718/25 at [facility] - scheduled follow-up 10/19/23 at [facility] ECHO December 2019 EF 60-65%, mild LVH Presents as urgent visit for palpitations and 3 episodes of intense, sharp stabbing, pin like chest pain. Worsening palpitations, no clear trigger. Reassurance given no further ischemic workup warranted at this time Palpitations longer than previous episodes, plan for 14-day R OC HTN well-controlled Alcohol abuse strongly reinforced. GERD (gastroesophageal reflux disease) 6 Overview (05/09/2018): 05/08/17 - Seen at [facility] ED c/o left upper abd pain. Dx: gastritis. Discharged with Maalox and Zofran. Syphilis, latent 05/26/2015 Overview (06/04/2015): PCN injections x3 June 2015 Resolved Problems Problem Noted Date Diagnosed Date Resolved Date Midline low back pain with l eft-sided sciatica 07/19/2016 11/17/2016 Fatigue 07/19/2016 11/17/2016 Encounters Date Type Department Care Team Description 05/17/2024 10:00 AM EST Office Visit [address] [phone] Rell Dennison, PharmD Essential hypertension (Primary Dx); Class 1 obesity due to excess calories with serious comorbidity and body mass index (BMI) of 33.0 to 33.9 in adult; Medication management; Pituitary macroadenoma ([facility]) 05/10/2024 10:20 AM EST Office Visit [address] [phone] Roya Eaton PA-C HIV infection, unspecified symptom status ([facility]) (Primary Dx); Immunization due 04/15/2024 9:40 AM EST Office Visit [address] [phone] Juno Yates PA-C Martinez, Celestia Acute pain of left shoulder (Primary Dx); Chronic left shoulder pain; Non-Romanian speaking patient 04/15/2024 Travel from Last 3 Months Immunizations Immunization Administration Dates Next Due Flu, Preservative Free 12/22/2022,2021,01/08/2021,01/15,04/23/2019,12/11/2017,12/19/2016 Hep A, adult 07/16/2010,01/01/2010 INFLUENZA, SEASONAL, INJECTABLE 05/03/2016,07/02 Influenza (FLUBLOK),recombinant,injectable,prese rvative Free 05/10/2024 MENINGOCOCCAL MCV4P (MENACTRA) 08/23/2021,2016 MODERNA COVID-19 VACCINE [...] Asthma Father Diabetes Father Heart Problems Father MN age 60's Hypertension Father Diabetes Mother Heart Problems Mother open heart ojeda rgery 50's Hypertension Mother Parkinson's disease Mother Asthma Sister 1 Heart Problems Sister 1 MN age 69 Hypertension Sister 1 Asthma Sister [...] Orientation Owens 06/09/2022 6: 58 AM PST Last Filed Vital Signs Vital Sign Reading Time Taken Comments Blood Pressure 126/68 05/17/2024 9:30 AM EST Pulse 68 05/17/2024 9:30 AM EST Temperature 37.1 ??C (98.8 ??F) 05/10/2024 9:52 AM ES T Respiratory Rate 16 05/17/2024 9:30 AM EST Oxygen Saturation 97% 05/10/2024 9:52 AM EST Inhaled Oxygen Concentration - - Weight 101.6 kg (224 lb) 05/17/2024 9:30 AM EST Height 175.3 cm (5' 9 ) 05/17/2024 9:30 AM EST Body Mass Index 33.08 05/17/2024 9:30 AM EST Plan of Treatment Upcoming Encounters Date Type Department Care Team (Late st Contact Info) Description 07/18/2024 9:00 AM EDT Office Visit [facility] [address] [place] [phone] Mark Lynch, RD [address] [place] [address] 07/26/2024 9:00 AM EDT Office Visit [facility] [address] [place] [phone] Rell Dennison, PharmD [address] [place] [address] Health Maintenance Due Date Last Done Comments Anxiety Screening [address] CT Colonography 2018 FIT/gFOBT 2018 Fecal DNA 2018 Flexible Sigmoidoscopy 2018 STI Counseling 06/07/2022 06/07/2021 (Juany auguste by Outside Provider) Imm-Zoster, Recombinant (1 of 2) 07/25/2022 Annual Preventive Care Visit 04/10/2024 04/10/2023, 01/19/2022, 10/28/2020, Additional history exists Lipid Screening 04/10/2024 04/10/2023, 11/2023, 09/02/2022, Additional history exists Depression Monitoring 05/09/2024 02/07/2024 , 11/03/2023, 04/10/2023, Additional history exists [id number] ( season) 2024 03/31/2023, 02/08/2022, 11/08/2021, Additional history exists Postponed from 12/03/2023 (Patient postponement) Syphilis Screening 12/12/2024 12/13/2023, 0 06/19/2023, 01/04/2023, Additional history exists Dental BW 01/18/2025 01/17/2024, 06/01, 12/16/2022, Additional history exists Dental Examination 01/18/2025 01/17/2024, 0 06/16/2023, 12/16/2022, Additional history exists Dental Perio Charting 01/18/2025 01/17/2024, 022 Dental Prophy 01/18/2025 01/17/2024, 06/01, 12/16/2022, Additional history exists Diabetes Screening 02/06/2025 [...] 06/19/2023 , 07/11/2022, 08/03/2021, Additional history exists Imm-Influenza Completed 05/10/2024, 12/03, 12/22/2021, Additional history exists Alcohol and Drug Screen Completed 05/17/19, 04/10/2023, 09/21/2022, Additional history exists Imm-Hepatitis B Discontinued Imm-MMR Discontinued Procedures Procedure Name Priority Date/Time Associated Diagnosis Comments REFERRAL SCANNED DOCUMENT 06/12/2024 3:00 AM EDT REFERRAL SCANNED DOCUMENT 05/31/2024 3:00 AM EST REFERRAL SCANNED DOCUMENT 05/15/2024 3:00 AM EST IMAGING SCANNED DOCUMENT 05/06/2024 3:00 AM EST REFERRAL TO ORTHOPEDICS Routine 05/06/2024 3:00 AM EST Acute pain of left shoulder Chronic left shoulder pain REFERRAL SCANNED DOCUMENT 05/01/2024 3:00 AM EST REFERRAL SCANNED DOCUMENT 04/11/2024 3:00 AM EST LAB SCANNED DOCUMENT 04/11/2024 3:00 AM EST COMPREHENSIVE METABOLIC PANEL Routine 02/07/2024 10:14 AM EST Essential hypertension Prediabetes COMP PERIODONTAL EVALUATION - NEW/EST PATIENT Routine 01/17/2024 1:00 PM EDT [facility] BITEWINGS - FOUR RADIOGRAPHIC IMAGES Routine 01/17/2024 1:00 PM EDT [facility] PROPHYLAXIS - ADULT Routine 01/17/2024 1 :00 PM EDT [facility] PERIODIC ORAL EVALUATION ESTABLISHED PATIENT Routine 01/17/2024 1:00 PM EDT [facility] RPR (MONITOR) W/REFL TITER Routine 12/13/2023 8:48 AM EDT HIV infection, unspecified symptom status ([facility]) HEPATITIS C AB W/RFLX HCV RNA, QT, RT PCR Routine 06/19/2023 8:53 AM EDT HIV infection, unspecified symptom status ([facility]) LIPIDS W RFLX TO DIRECT LDL Routine 04/10/2023 2:06 PM EST Essential hypertension Hypertriglyceridemi a COLONOSCOPY Routine 02/10/2017 8:55 AM EST Colon cancer screening HEPATITIS A,B,C PANEL Routine 11/17/2016 10:18 AM EDT Elevated LFTs from Last 3 Months or Most Recently Relevant to Health Maintenance Results * REFERRAL SCANNED DOCUMENT (06/12/2024 3:00 AM EDT) Only the most recent of5 resultswithin the time period is included. 06/12/2024 3:00 AM EDT Sierra Reinoso PA-C SCAN REFERRAL Final Result * IMAGING SCANNED DOCUMENT (05/06/2024 3:00 AM EST) 05/06/2024 3:00 AM EST Result [facility] Sierra Reinoso PA-C SCAN IMAGING Final Result * REFERRAL TO ORTHOPEDICS (05/06/2024 3:00 AM EST) 05/06/2024 3:00 AM EST Juno Yates PA-C REFERRAL Edited Result - Final * LAB SCANNED DOCUMENT (04/11/2024 3:00 AM EST) 04/11/2024 3:00 AM EST Result [facility] Sierra Reinoso PA-C SCAN LAB Final Result * COMPREHENSIVE METABOLIC PANEL (02/07/2024 10:14 AM EST) Pathologist [facility] GLUCOSE 84 65 - 99 mg/dL [employer] Comment: ?Fasting reference interval UREA NITROGEN (BUN) 12 7 - 25 mg/dL [facility] CREATININE (blood) 1.01 0.70 - 1.30 mg/dL [employer] EGFR 91 > OR = 60 mL/min/1. 73m2 [employer] BUN/CREATININE RATIO SEE NOTE: [employer] Comment: ?? Not Reported: BUN and Creatinine are within ?? reference range. ? SODIUM 138 135 - 146 mmol/L [employer] POTASSIUM 4.5 3.5 - 5.3 mmol/L [employer] CHLORIDE 103 98 - 110 mmol/L [employer] CARBON DIOXIDE 28 20 - 32 mmol/L [employer] CALCIUM 9.3 8.6 - 10.3 mg/dL [employer] [facility] PROTEIN, TOTAL 7.5 6.1 - 8.1 g/dL [facility] ALBUMIN 4.6 3.6 - 5.1 g/dL [employer] GLOBULIN 2.9 1.9 - 3.7 g/dL (calc) [employer] ALBUMIN/GLOBULI N RATIO 1.6 1.0 - 2.5 (calc) [employer] [facility] BILIRUBIN, TOTAL 0.3 0.2 - 1.2 mg/dL [employer] [facility] ALKALINE PHOSPHATASE 64 35 - 144 U/L [employer] [facility] AST 22 10 - 35 U/L [employer] [facility] ALT 29 9 - 46 U/L [employer] [facility] Blood Blood / Unknown 02/07/2024 1 0:14 AM EST 02/07/2024 10:14 AM EST Narrative [employer] [facility] - 02/08/2024 8:06 AM EST FASTING:YES Sierra Reinoso PA-C LAB - BLOOD DRAW Edited Resu lt - Final Performing Organization Address [facility] Co de Phone Number [employer] [address] [address], [place] [address] [phone] * RPR (MONITOR) W/REFL TITER (12/13/2023 8:48 AM EDT) Pathologist [facility] RPR (MONITOR) W/REFL TITER NON-REACT ELIAS NON-REACT ELIAS [employer] [facility] Blood Blood / Unknown 12/13/2023 8 :48 AM EDT 12/13/2023 8:48 AM EDT Narrative [employer] [facility] - 12/16/2023 9:29 PM EDT FASTING:YES Roya Eaton PA-C LAB - BLOOD DRAW Edited Resu lt - Final Performing Organization Address [facility] Co de Phone Number [employer] [address] [address], [place] [address] [address] * HEPATITIS C AB W/RFLX HCV RNA, QT, RT PCR (06/19/2023 8:53 AM EDT) HEPATITIS C ANTIBODY NON-REACT ELIAS NON-REACT ELIAS [employer] [facility] Comment: HCV antibody was non-reactive. There is no laboratory evidence of HCV infection. In most cases, no further action is required. However, if recent HCV exposure is suspected, a test for HCV RNA (test code 23481) is suggested. For additional information please refer to http://CorpU.YEOXIN VMall/faq/BTA69c1 (This link is being provided for informational/ educational purposes only.) Blood Blood / Unknown 06/19/2023 8 :53 AM EDT 06/19/2023 8:54 AM EDT Narrative [employer] - 06/23/2023 1:53 PM EDT FASTING:YES us Roya Eaton PA-C LAB - BLOOD DRAW Edited Resu lt - Final [employer] [address] [place] [id number], [employer] [address] [place] [phone] * (ABNORMAL) LIPIDS W RFLX TO DIRECT LDL (04/10/2023 2:06 PM EST) CHOLESTEROL, TOTAL 149 <200 mg/dL [employer] [facility] HDL CHOLESTEROL 39(L) > OR = 40 mg/dL [employer] TRIGLYCERIDES 246(H) <150 mg/dL [employer] Comment: If a non-fasting specimen was collected, consider repeat triglyceride testing on a fasting specimen if clinically indicated. Ketan et al. J. of Clin. Lipidol. 2015;9:129-169. LDL-CHOLESTEROL 76 99 mg/dL (calc) [employer] Comment: Reference range: <100 Desirable range <100 mg/dL for primary prevention; ?? <70 mg/dL for patients with CHD or diabetic patients with > or = 2 CHD risk factors. LDL-C is now calculated using the Roman-Robert calculation, which is a validated novel method providing better accuracy than the Friedewald equation in the estimation of LDL-C. Roman VIZCARRA et al. DAMON. 2013;310(19): 8479-0468 (http://education.Kapta/faq/WEN498) CHOL/HDLC RATIO 3.8 <5.0 (calc) [employer] NON-HDL CHOLESTEROL 110 <130 mg/dL (calc) [employer] Comment: For patients with diabetes plus 1 major ASCVD risk factor, treating to a non-HDL-C goal of <100 mg/dL (LDL-C of <70 mg/dL) is considered a therapeutic option. Blood Blood / Unknown 04/10/2023 2 :06 PM EST 04/10/2023 2:06 PM EST Sierra Reinoso PA-C LAB - BLOOD DRAW Final Resul t [employer] [address] [address], [employer] [facility] [address] [place] [address] * COLONOSCOPY (02/10/2017 8:55 AM EST) Impressions Roya Eaton PA-C - 02/10/2017 8:55 AM EST Colonoscopy 02/10/[address] [facility] by Dr Acosta for rectal bleeding. Findings; diverticulosis, hemorrhoids. 1 polyp noted and resected. Pathology: colon: tubular adenoma, esophageal brushing negative for malignant cells. Advised to repeat colonoscopy in 5 years. Provider [place] PROCEDURES Final Result * (ABNORMAL) HEPATITIS A,B,C PANEL (11/17/2016 10:18 AM EDT) HEPATITIS B SURFACE ANTIBODY POSITIVE(A) NEGATIVE [facility] HEPATITIS B SURFACE ANTIGEN NEGATIVE NEGATIVE [facility] Comment: Over the counter supplements containing high doses of biotin may interfere with this assay. ??If interference is suspected, patients shoud be retested after refraining from biotin supplements for 72 hours. HEPATITIS C VIRUS DIAGNOSTIC NEGATIVE NEGATIVE [facility] HEPATITIS B CORE ANTIBODY NEGATIVE [facility]GATIVE [facility] [facility] HEPATITIS A ANTIBODY TOTAL POSITIVE(A) NEGATIVE [facility] Comment: Over the counter supplements containing high doses of biotin may interfere with this assay. ??If interference is suspected, patients shoud be retested after refraining from biotin supplements for 72 hours. Blood specimen (specimen) Blood / Unknown 11/17/2016 10:18 AM EDT 11/17/2016 11:01 AM EDT Narrative [facility] - 11/17/2016 12:58 PM EDT [facility] [address] [place] [address] PT ID [id number] ORD# [id number] Joyce Busch [facility] - BLOOD DRAW Edited R esult - Final [facility] [address] [place] [address], from Last 3 Months or Most Recently Relevant to Health Maintenance [place] DENTAL [facility] SAFETY NET DENTAL [facility] ACO Care Teams Commercial Lines Account Executive Relationship Specialty Start Date End Date Sierra Reinoso PA-C [address] [place] [address] PCP - General Internal Medicine 05/04/20
--- OUTSIDE RECORDS SUMMARY | 2024-07-02 08:57 | XMS_ITS | Encounter Summary ---
Author Organization [facility] Address [address] [place] [address] Care Team Providers Care Painter Maintenance Name Role Phone Sierra Reinoso Primary Care Provider Encounter Details Date Type Department Care Team (Late st Contact Info) Description 01/12/2024 7:30 AM EDT Hospital Encounter TH HISTORIC ENCOUNTERS EASTERN CONVERSION ONLY Sierra Reinoso PA [address] [place] [address] Social History Tobacco Use Types Packs/Day Years [...] AM EDT Office Visit General Surgery - [place] [address] [place] [phone] Destin Vasques, DO [address] [address] documented as of this encounter Visit Diagnoses Not on filedocumented in this encounter Care Teams Painter Maintenance Relationship Specialty Start Date End Date Sierra Reinoso PA [address] [place] [address] PCP - General 08/06/21 documented as of this encounter
[2024-07-07 15:17] LABS: Vitamin D 25-OH, D2 <4 ng/mL; Vitamin D 25-OH, D3 30 ng/mL; Vitamin D 25-OH, Total 30 ng/mL (30-100)
== END 2024-07-02 08:36 | disposition home or self-care (01) ==
LOC: HO.HKASLDS 08:35
PROVIDERS: Visit Provider Nurse Practitioner Family
DX: E55.9 Vitamin D deficiency, unspecified (principal)
CPT/HCPCS: 36415; 82306

== ENCOUNTER 2024-07-09 09:45 | Outpatient (AMB) | payer MEDICAID, SELFPAY ==
--- NOTE | 2024-07-09 09:46 | MHC.OFFVIS ---
Vital Signs 07/09/24 09:52 Height 5 ft 9 in Weight 227 lb 15.327 oz BMI 33.7 BP 142/74 H Blood Pressure Location Lt brachial Position Sitting Respiration 18 Pulse 72 Pulse Source Pulse Oximeter Pulse Oximetry (%) 98 Oxygen Delivery Method Room Air Intake Visit Reasons: pituitary adenoma Intake Note: Patient present today for pituitary adenoma office visit. Forge Shop Supervisor Required: Yes Forge Shop Supervisor Language: Wrapper Sorter Services: Forge Shop Supervisor Present Forge Shop Supervisor Name: C Forge Shop Supervisor Pastora Information Interpreted: non-clinical & clinical Allergies No Known Allergies Allergy (Verified 07/09/24 09:51) Medication List - Last Reconciled 07/09/24 by Jason Jack MD [id number] 600-50-300 mg (Triumeq) 1 tab PO DAILY acetaminophen mg PO albuterol sulfate 0.63 mg inhalation Q6H albuterol sulfate 90 mcg/actuation (ProAir HFA) 1 inh inhalation QID allopurinol 100 mg PO DAILY alprazolam (Xanax) Take 1 tab of 0.25 mg orally for MRI, may repeat X1. 1 day aripiprazole 2 mg PO BEDTIME baclofen 10 mg PO BEDTIME budesonide-formoterol 80-4.5 mcg/actuation (Symbicort) 1 inh inhalation BID bupropion HCl 75 mg PO TID cholecalciferol (vitamin D3) 1,250 mcg PO QWEEK 12 days clonazepam 0.25 mg PO BEDTIME cyclobenzaprine 10 mg PO BEDTIME diclofenac potassium mg PO diclofenac sodium 1% 2 grams topical QID fluticasone propionate 50 mcg/actuation (Allergy Relief (fluticasone)) 1 spray intranasal DAILY gabapentin 600 mg (2 x 300 mg) PO BEDTIME 30 days ibuprofen 800 mg PO TID lidocaine 1.8% 1 patch topical DAILY loratadine 10 mg PO DAILY losartan 25 mg PO DAILY metformin 500 mg PO BID methocarbamol 500 mg PO BID montelukast (Singulair) 10 mg PO BEDTIME nebivolol 0 mg PO nifedipine 10 mg PO BID omeprazole 10 mg PO DAILY paroxetine HCl 10 mg PO DAILY pravastatin 10 mg PO BEDTIME prednisone mg PO quetiapine 100 mg PO BEDTIME rosuvastatin 10 mg PO BEDTIME tiotropium bromide 2.5 mcg/actuation (Spiriva Respimat) 2 puffs inhalation BEDTIME zolpidem 12 mg PO BEDTIME PRN HPI Comments Details: This is a 49-year-old male send to endocrinology for 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 The patient had MRI performed which showed a 10 X 6 x 7 mm pituitary adenoma. Present for 3 yrs . He had an extensive biochemical workup which showed normal prolactin, normal IGF-1, normal thyroid function studies, normal 24 hour urine for free cortisol. He admits to blurry vision and loss of vision . He admits to headaches. Denies sx of acromegaly or Deshler's . No sx of adrenal insufficency . Cortrosyn stimulation test recently was normal. [facility] Neurosurgery in fall who decided to continue to follow with serial MRIs The patient is a 49-year-old male presenting for a follow-up regarding pituitary evaluation. He denied experiencing any new or increased headaches or loss of vision. There are no significant symptoms of acromegaly such as enlargement of hands or feet. The patient has not noticed any milk discharge from the breast area. [facility] Medical History Anxiety Asthma Depressed Gout High blood pressure High cholesterol HIV (human immunodeficiency virus infection) Pain aggravated by anxiety Surgical History H/O foot surgery Family History Sister Colon cancer Intestines cancer Social History Alcohol intake: current Patient Tobacco Use Status: Never used Tobacco Physical Exam Vital Signs: Last Vital Signs Pulse 72 07/09/24 09:52 Resp 18 07/09/24 09:52 BP 142/74 H 07/09/24 09:52 Pulse Ox 98 07/09/24 09:52 Oxygen Delivery Method Room Air 07/09/24 09:52 BMI result Body Mass Index 33.7 Const Other: There are no acromegalic features present. Thyroid gland is normal size weighs about 15 g. 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 . Adenoma has been present for least 2 years. Adrenal axis was normal a Cortrosyn stimulation Plan is to continue to follow. Patient should also follow up with [facility] Neurosurgery 1. Pituitary follow-up: The patient requires ongoing monitoring through annual follow-up appointments with the neurosurgeon to ensure the pituitary condition remains stable. An MRI is planned approximately eight months from now, with a follow-up in nine months. There are no new symptoms to suggest changes in the pituitary condition. During the consultation, I emphasized to the patient the necessity of regular monitoring of the pituitary region through annual appointments with a neurosurgeon, even in the absence of surgical indications. I detailed the plan to perform an MRI in eight months, followed by a review visit in nine months. The patient was advised to book these appointments and tests proactively. The patient acknowledged understanding and agreed to the follow-up and management plan. During the consultation, I emphasized to the patient the necessity of regular monitoring of the pituitary region through annual appointments with a neurosurgeon, even in the absence of surgical indications. I detailed the plan to perform an MRI in eight months, followed by a review visit in nine months. The patient was advised to book these appointments and tests proactively. The patient acknowledged understanding and agreed to the follow-up and management plan. . The patient had an opportunity to ask questions regarding treatment plan. The patient expressed understanding and agreement with the above treatment plan. Patient was informed and verbally consented to the use of an ambient scribe for clinic note documentation during this visit. Orders: Orders MR head/brain wo/w con 8 Months D35.2 - Benign neoplasm of pituitary gland Coding Level of Care Code Est Pt Level 3 (06054) Diagnoses Pituitary macroadenoma D35.2
[2024-07-09 09:52] VITALS: BP 142/74; PULSE 72; RESP 18; O2SAT 98; BMI 33.7
--- OUTSIDE RECORDS SUMMARY | 2024-07-09 11:09 | XMS_ITS | Encounter Summary ---
Author Organization [facility] Address [address] [place] [address] Care Team Providers Care Human Intelligence Name Role Phone Sierra Reinoso PA-C Primary Care Provider [phone] Encounter Details Date Type Department Care Team (Late st Contact Info) Description 01/17/2024 Patient Outreach [facility] [address] [place] [address] Kory Garcia, Community Health Worker [address] [place] [address] Social History Tobacco Use Types Packs/Day Years [...] Description 07/18/2024 9:00 AM EDT Office Visit [facility] [address] [place] [address] [place] [address] 07/26/2024 9:00 AM EDT Office Visit [facility] [address] [place] [phone] Rell Dennison, FlorD [address] [place] [address] documented as of this encounter Visit Diagnoses Not on filedocumented in this encounter Additional Health Concerns Assessment Noted Time PHQ-9 Depression Total Score: 14 024 9:08 AM PDT documented as of this encounter Care Teams Human Intelligence Relationship Specialty Start Date End Date Sierra Reinoso PA-C [facility] [place] [address] PCP - General Internal Medicine 05/04/20 documented as of this encounter
--- OUTSIDE RECORDS SUMMARY | 2024-07-09 11:10 | XMS_ITS | Clinical Summary ---
Author Organization 175 [facility] Address [address] [place] [address] Phone Care Team Providers Care Airplane Dispatch Clerk Name Role Phone Sierra Reinoso Primary Care [...] on the left. Flow-voids in the adjacent [place] are preserved. Hallux valgus of [...] Carrillo. In the meantime use Proctozone cream [place] BID x 14 days Chronic GERD 02/01/2017 Gout 01/15/2017 Overview (01/03/2024): 12/29/16 [facility] ED for L great toe pain. Xray neg for fracture. Dx: gout, Tx: Indomethacin Major depressive disorder, r ecurrent episode with anxious distress 05/16/2016 Overview (01/03/2024): F/U [facility] Lumbar nerve root impingement 11/28/2015 Overview (01/03/2024): Nov 2015 - Mild arthritis changes of lumbar spine seen on xray [facility] and Ct abd/pelv [facility] august 2015. MRI June shows L5/S1 broad-based left paracentral protrusion, which compresses the descending S1 nerve root with moderate L neural foraminal stenosis. 09/09/16 Eval by SLICK Cox at [facility]. Has just begun injection therapy. Will have him finish injections and f/u shortly thereafter. 10/05/16 Radiofrequency lesioning at [facility] 10/10/16 Epidural steroid injection 12/13/16 [facility], f/u from L4-5 LESI [...] planned. Asthma 05/26/2015 Overview (01/03/2024): 02/15/18 - [facility] Pulm F/U: IMPRESSION: Severe persistent asthma with acute exacerbation will give a course of prednisone and a course of amocicillin for 7 days to continue with symbicort 160/4.5, 2 puffs q12h Spiriva 18mcg daily and albuterol as needed. HIV (human immunodeficiency virus infection) Overview (01/03/2024): Diagnosed 1997 in [place] [id number] negative per lab on 05/26/15 05/12/17 [facility] ID, Dr Griffith, Anal Pap and rectal GC/Chalm screening, pharyngeal GC/Chlam screening. Anal PAP neg for intraepithelial lesion or malignancy. HTN (hypertension) 05/26/2015 Overview (01/03/2024): Last Assessment & Plan: Well-controlled. Continue current regimen. Syphilis, latent 05/26/2015 Overview (01/03/2024): PCN injections x3 June 2015 Encounters Date Type Department Care Team Description 05/15/2024 10:30 AM EST Office Visit General [facility] [address] [phone] Destin Vasques, DO Status post umbilical hernia repair, follow-up exam (Primary Dx) 05/06/2024 1:45 PM EST Consult Orthopedic Surgery [facility] [address] [phone] Krish Harp MD Myofascial pain (Primary Dx); Pain in left shoulder 05/03/2024 10:30 AM EST - 05/03/2024 12:00 PM EST Surgery [facility] OR [address] [place] [phone] Destin Vasques, DO OPEN REPAIR UMBILICAL HERNIA [[id number] (CPT??)] 05/03/2024 8:27 AM EST Anesthesia Event [facility] [place] [address] [place] [phone] Juno Gao DO Dasilva, John E, MD 05/03/2024 7:45 AM EST - 05/03/2024 11:48 AM EST Hospital Encounter [facility] [place] [address] [place] [phone] Destin Vasques, DO Umbilical hernia without obstruction or gangrene Discharge Disposition: Home or Self Care 05/03/2024 Telephone General Surgery [address] [phone] Destin Vasques, DO Advice Only 04/29/2024 Telephone General [facility] [address] [phone] Destin Vasques, DO Prior Authorization (05/03/24 Dr. Destin Vasques) from Last 3 Months Immunizations Name Administration [...] ial hypertension Human immunodeficiency virus (HIV) disease ([facility]) DX:Human immunodeficiency vi michael (HIV) disease ([facility]) Right foot pain DX:Right foot pa in Hyperlipidemia Diabetes mellitus ([facility]) GERD (gastroesophageal reflux disease) HIV (human immunodeficiency virus infection) ([facility]) Depression Anxiety Neuromuscular disorder ([facility]) Arthritis Joint pain Degeneration of intervertebr al [...] AM EDT Office Visit General Surgery - [place] 175 [facility] [address] [place] [phone] Destin Vasques, 175 [facility] Barry [address] [place] [phone] Health Maintenance Due Date Last Done Comments [...] age to complete this topic Meningococcal B Vaccine Aged Out No l onger eligible based on patient's age to complete this topic RSV Immunization Patients Under 20 months Aged Out No longer eligible based on patient's age to complete this topic Medical Devices Implanted Type Area [employer] Device Identifier Shelf Expiration Date Model / Serial / Lot Ventralex Hernia Patch Implanted:Qty: 1 on 05/03/2024 by Destin Vasques DO at [facility] N/A: Abdomen OTHER 10/28/2025 [id number] / NONE / [id number] Description:BARD Procedures Procedure Name Priority Date/Time Associated Diagnosis Comments XR SHOULDER 2+ VIEWS LEFT Routine 05/06/2024 1:30 PM EST Pain OXYGEN THERAPY, ADULT Routine 05/03/2024 9:50 AM EST OXYGEN THERAPY, ADULT Routine 05/03/2024 9:50 AM EST TISSUE EXAM Routine 05/03/2024 9:31 AM EST Umbilical hernia without obstruction or gangrene TH AN ENDOTRACHEAL(NO CHARGE) Routine 05/03/2024 9:02 AM EST WI REPR ANT ABD HERNIA(S) ANY APPR INIT INCL IMPL < 3 CM REDUCIBLE 05/03/2024 8:42 AM EST Umbilical hernia without obstruction or gangrene Case Notes REEL TENDER Special Needs 1 hr please POCT GLUCOSE [...] with hernia sac. 05/06/2024 12:21 PM EST [facility] Gross Description A. Abdominal Wall, Umbilical hernnia sac: Labeled umbilical, ABD wall . Received in formalin is a 3.4 x 2.1 x 0.3 cm irregular disrupted pink-white membranous tissue fragment with minimal attached adipose tissue. No mass lesions are appreciated. A chain sales representative section is submitted one cassette, one piece. LOLITA 05/06/2024 12:21 PM [facility] Disclaimer Unless otherwise specified, all tissue is 10% NB formalin fixed and paraffin embedded. 05/06/2024 12:21 PM [facility] Tissue Abdominal wall / Unknown 05/03/2024 9:31 AM EST 05/03/2024 10:40 AM EST us Destin Vasques DO LAB PATHOLOGY ORDERABLES Final Result [facility]) [facility] [address] [place] [address], * TH AN ENDOTRACHEAL(NO CHARGE) (05/03/2024 9:02 AM EST) Narrative Paloma Vitale CRNA - 05/03/2024 9:02 AM EST Paloma Vitale CRNA ? 05/03/2024 ??9:03 AM General Information and Staff Patient location during procedure: OR Resident/HEALTH TYPE TECHNICIAN: Paloma Vitale CRNA Performed: resident/HEALTH TYPE TECHNICIAN/CAA Performed by: Paloma Vitale CRNA Authorized by: [...] by mask Start Time: 05/03/2024 8:48 AM Result [facility] Nash Haynes MD ANESTHESIA ORDERABLES Final Re sult * (ABNORMAL) POCT Glucose, blood (05/03/2024 7:59 AM EST) [facility] Glucose POCT 120(H) 70 - 100 mg/dL 05/03/2024 8:00 AM EST [facility] Blood Capillary blood specimen / Unknown 05/03/2024 7:59 AM EST 05/03/2024 8:01 AM EST Result [facility] Destin Vasques DO LAB POINT OF CARE TE ST DOCKED DEVICE UNSOLICITED RESULTS Final Result [facility] [address] [place] [address], [place] [phone] * Annual BMP Blood Test (11/03/2023) [facility] Annual BMP Blood Test Abstracted Result [facility] Historical Provider HEALTH MAINTENANCE Final Result * Hepatitis C Screening (06/19/2023) [facility] Hepatitis C Screening Abstracted Result [facility] Historical Provider HEALTH MAINTENANCE Final Result * Lipid panel (04/10/2023) [facility] Triglycerides 0 mg/dL Comment:no interpretation Cholesterol 0 mg/dL Comment:no interpretation HDL 0 mg/dL Comment:no interpretation LDL Cholesterol 0 mg/dL Comment:no interpretation Blood Venous blood specimen / Unknown Result [facility] Historical Provider LAB BLOOD ORDERABLES Solange l [...] currently active code status orders. Care Teams Airplane Dispatch Clerk Relationship Specialty Start Date End Date Sierra Reinoso PA [facility] [place] [address] PCP - General 08/06/21
--- OUTSIDE RECORDS SUMMARY | 2024-07-09 11:10 | XMS_ITS | Encounter Summary ---
Author Organization [facility] Address [address] [place] [address] Care Team Providers Care Grooming Salon Manager Name Role Phone Sierra Reinoso Primary Care Provider Encounter Details Date Type Department Care Team (Late st Contact Info) Description 01/12/2024 7:30 AM EDT Hospital Encounter TH HISTORIC ENCOUNTERS EASTERN CONVERSION ONLY Sierra Reinoso PA [address] [place] [address] Social History Tobacco Use Types Packs/Day Years [...] AM EDT Office Visit General Surgery - [place] [address] [facility] [address] [place] [phone] Destin Vasques, DO [address] [address] documented as of this encounter Visit Diagnoses Not on filedocumented in this encounter Care Teams Grooming Salon Manager Relationship Specialty Start Date End Date Sierra Reinoso PA [address] [place] [address] PCP - General 08/06/21 documented as of this encounter
--- OUTSIDE RECORDS SUMMARY | 2024-07-09 11:10 | XMS_ITS | Clinical Summary ---
Author Organization [facility] Address [address] [place] [address] Care Team Providers Care Set Up Mechanic Coating Machines Name Role Phone Sierra Reinoso PA-C Primary Care Provider [phone] Source Comments PLEASE NOTE, if this patient [...] asthma, unspecified asthma severity, unspecified whether complicated ([facility]) Use to administer Symbicort 1 Each 021 Active omeprazole (PRILOSEC) [address] capsuleIndications: HIV (human immunodeficiency virus infection) ([facility]) EMILIA 2 CAPSULAS POR LA BOCA POR LA MANANA ANTES DEL DESAYUNO 90 Capsule 024 Active abacavir-dolutegrav ir-lamivud (TRIUMEQ) 600-50-300 mg tabIndications:HIV infection, unspecified symptom status ([facility]) Take 1 Tablet by mouth once daily 30 Tablet 11 024 Active VENTOLIN HFA 90 mcg/actuation inhalerIndications: Moderate persistent asthma without complication ([facility]) USAR 2 INHALACIONS POR LA BOCA CADA 4 HORAS CUANDO SEA NECESARIO PARA DIMPLE O RESPIRACION CORTA 18 g 2 Active SPIRIVA WITH HANDIHALER 18 mcg capsule for inhalerIndications: Chronic obstructive pulmonary disease, unspecified COPD type ([facility]),Moderate persistent asthma without complication ([facility]) INHALAR EL CONTENIDO DE 1 CAPSULA A TRAVES DE HANDIHALER DIARIAMENTE. USAR 2 INHALACIONS DE 1 CAPSULE PARA CADA DOSIS 90 Capsule 1 Active SYMBICORT 160-4.5 mcg/actuation inhalerIndications: Moderate persistent asthma without complication ([facility]) USAR 2 INHALACIONS POR LA BOCA 2 VECES AL ALCIDES 30.6 g 1 Active montelukast (SINGULAIR) 10 mg tabletIndications:C hronic obstructive pulmonary disease, unspecified COPD type ([facility]),Moderate persistent asthma without complication ([facility]) [place] 1 tableta por vIa oral todas las noches antes de acostarse 90 Tablet Active blood sugar diagnostic stripsIndications:P rediabetes 1 Each daily. Freestyle lite strips to check sugar daily. 100 Each 3 Active blood-glucose meter monitoring kitIndications:Pred iabetes daily. Freestyle lite glucose monitor to check sugar daily. 1 Each Active alcohol swabsIndications:Pr ediabetes Clean are before checking sugar at home, 100 Each Active lancetsIndications: Prediabetes daily. Lancets to check sugar level daily. 100 Each 3 Active allopurinoL (ZYLOPRIM) 100 mg tabletIndications:E ssential hypertension EMILIA 1 TABLETA POR LA BOCA ZI VEZ ALL ALCIDES 90 Tablet Active DEEP SEA NASAL 0.65 % nasal sprayIndications:Na shirin congestion PLACE 1 SPRAY INTO THE NOSTRIL(S) NEEDED FOR CONGESTION 44 mL 4 Active lithium carbonate 300 mg capsule Take 300 mg by mouth 2 (two) times daily (Prescribed by Dr. Horne he - psych) 10/07/2 024 Active CARAFATE 100 mg/mL suspension Prescribed by [facility] 024 Active ibuprofen 800 mg [...] mouth 2 (two) times daily (Prescribed by [facility]) 025 Active PARoxetine (PAXIL) 20 mg tablet Take 20 mg by mouth every morning (Prescribed by psych - Dr. Toby-Falc he) 025 Active fluticasone (FLONASE) 50 mcg/actuation nasal [...] 12 HOURS 90 Patch 1 025 Active rosuvastatin (CRESTOR) 10 mg tabletIndications:H ypertriglyceridemia TAKE 1 TABLET BY MOUTH NIGHTLY AT BEDTIME 90 Tablet 2 025 Active rosuvastatin (CRESTOR) 10 mg tabletIndications:H ypertriglyceridemia Take 1 Tablet by mouth nightly at bedtime 90 Tablet 2 024 2024 Discontinued metFORMIN (GLUCOPHAGE) 500 mg tabletIndications:P rediabetes Take [...] macroadenoma (HCC-CMS) 02/18/2021 Overview (05/17/2024): Follows with [facility] Neurology and endocrinology 10/26/23 MRI Brain and [...] on the left. Flow-voids in the adjacent [place] of [place] are preserved. Hallux valgus of [...] Carrillo. In the meantime use Proctozone cream ID BID x 14 days Samantha esophagitis ([facility]) 04/30/2017 Overview (07/23/2017): Noted on endoscopy 02/10/[address] Acosta at [facility]. Advised will start on antifungal tx. 03/24/17 - [facility] GI: F/U for EGD-colonoscopy results: Samantha esophagitis due to steroid inhaler as he was not rinsing his mouth after use. Colonoscopy: 1 adenomatous polyp , and high risk for colon cancer. Repeat 5 years. 07/12/17 - seen by [facility] for odynophagia and dysphagia : uncertain why pt is back at [facility] GI. He was previously seen by GI at [facility] back in 2016 and had a EGD at that time. F/U with primary GI at [facility]. H/O colonoscopy 04/30/2017 Overview (12/19/2017): Colonoscopy 02/10/17 at [facility] by Dr Acosta for rectal bleeding. Findings; diverticulosis, hemorrhoids. 1 polyp noted and resected. Pathology: colon: tubular adenoma, esophageal brushing negative for malignant cells. Advised to repeat colonoscopy in 5 years. Gout 01/15/2017 Overview (01/15/2017): 12/29/16 [facility] ED for L great toe pain. Xray neg for fracture. Dx: gout, Tx: Indomethacin Chest pain 11/10/2016 Overview (10/01/2018): 10/31/[address] Andesron at Cardiology. Started on ASA 325 mg, [...] sleep study. Sx's atypical for angina. 03/31/18 [facility] ED for CP. EKG is NSR, placed [...] disorder, r ecurrent episode with anxious distress ([facility]) 05/16/2016 Overview (06/26/2018): F/U [place] Class 1 obesity due to exces s calories with serious comorbidity and body mass index (BMI) of 33.0 to 33.9 in adult 01/01/2016 Low back pain - Lumbar nerve root impingement S1 via MRI 07/19/17 11/28/2015 Overview (06/26/2018): Nov 2015 - Mild arthritis changes of lumbar spine seen on xray [facility] abd/pelv [facility] august 2015. MRI June shows L5/S1 broad-based left paracentral protrusion, which compresses the descending S1 nerve root with moderate L neural foraminal stenosis. 09/09/16 Eval by SLICK Cox at [facility]. Has just begun injection therapy. Will have him finish injections and f/u shortly thereafter. 10/05/16 Radiofrequency lesioning at [facility] 10/10/16 Epidural steroid injection 12/13/16 [facility], f/u from L4-5 LESI [...] or malignancy. HIV (human immunodeficiency virus infection) ( [facility]) 05/26/2015 Overview (07/18/2017): Diagnosed 1997 [place] [id number] negative per lab on 05/26/15 05/12/17 [facility] ID, Dr Griffith, Anal Pap and rectal GC/Chalm screening, pharyngeal GC/Chlam screening. Anal PAP neg for intraepithelial lesion or malignancy. Asthma ([facility]) 05/26/2015 Overview (02/26/2018): 02/15/18 - [facility] F/U: IMPRESSION: Severe persistent asthma [...] at [facility] - scheduled follow-up 10/19/23 at [facility] December 2019 EF 60-65%, mild LVH [...] 6 Overview (05/09/2018): 05/08/17 - Seen at [facility] ED c/o left upper abd pain. Dx: gastritis. Discharged with Maalox and Zofran. Syphilis, latent 05/26/2015 Overview (06/04/2015): PCN injections x3 June 2015 Resolved Problems Problem Noted Date Diagnosed Date Resolved Date Midline low back pain with l eft-sided sciatica 07/19/2016 11/17/2016 Fatigue 07/19/2016 11/17/2016 Encounters Date Type Department Care Team Description 05/17/2024 10:00 AM EST Office Visit [address] [address] Rell Dennison, PharmD Essential hypertension (Primary Dx); Class 1 obesity due to excess calories with serious comorbidity and body mass index (BMI) of 33.0 to 33.9 in adult; Medication management; Pituitary macroadenoma ([facility]) 05/10/2024 10:20 AM EST Office Visit [address] [address] Roya Eaton PA-C HIV infection, unspecified symptom status ([facility]) (Primary Dx); Immunization due 04/15/2024 9:40 AM EST Office Visit [address] [address] Juno Yates PA-C Martinez, Celestia Acute pain of left shoulder (Primary Dx); Chronic left shoulder pain; Non-Turkish speaking patient 04/15/2024 Travel from Last 3 [...] Description 07/18/2024 9:00 AM EDT Office Visit [facility] [address] [place] [address] Mark Lynch, RD [address] [place] [address] 07/26/2024 9:00 AM EDT Office Visit [facility] [address] [place] [address] Rell Dennison, PharmD [address] [place] [address] Health Maintenance Due Date Last Done Comments [...] 02/07/2024 , 11/03/2023, 04/10/2023, Additional history exists [id number] ( season) 2024 03/31/2023, 02/08/2022, 11/08/2021, Additional [...] AM EDT HIV infection, unspecified symptom status ([facility]) HEPATITIS C AB W/RFLX HCV RNA, QT, RT PCR Routine 06/19/2023 8:53 AM EDT HIV infection, unspecified symptom status ([facility]) LIPIDS W RFLX TO DIRECT LDL Routine [...] period is included. 06/12/2024 3:00 AM EDT Result [facility] Sierra Reinoso PA-C SCAN REFERRAL Final Result * IMAGING SCANNED DOCUMENT (05/06/2024 3:00 AM EST) 05/06/2024 3:00 AM EST Sierra Reinoso PA-C SCAN IMAGING Final Result * REFERRAL TO ORTHOPEDICS (05/06/2024 3:00 AM EST) 05/06/2024 3:00 AM EST Result [facility] Juno Yates PA-C REFERRAL Edited Result - Final * LAB SCANNED DOCUMENT (04/11/2024 3:00 AM EST) 04/11/2024 3:00 AM EST Result [facility] Sierra Reinoso PA-C SCAN LAB Final Result * COMPREHENSIVE METABOLIC PANEL (02/07/2024 10:14 AM EST) Pathologist [facility] GLUCOSE 84 65 - 99 mg/dL [facility] Comment: ?Fasting reference interval UREA NITROGEN (BUN) 12 7 - 25 mg/dL [facility] CREATININE (blood) 1.01 0.70 - 1.30 mg/dL [facility] EGFR 91 > OR = 60 mL/min/1. 73m2 [facility] BUN/CREATININE RATIO SEE NOTE: [facility] Comment: ?? Not Reported: BUN and Creatinine are within ?? reference range. ? SODIUM 138 135 - 146 mmol/L [facility] POTASSIUM 4.5 3.5 - 5.3 mmol/L [facility] CHLORIDE 103 98 - 110 mmol/L [facility] CARBON DIOXIDE 28 20 - 32 mmol/L [facility] CALCIUM 9.3 8.6 - 10.3 mg/dL [facility] PROTEIN, TOTAL 7.5 6.1 - 8.1 g/dL [facility] ALBUMIN 4.6 3.6 - 5.1 g/dL [facility] GLOBULIN 2.9 1.9 - 3.7 g/dL (calc) [facility] ALBUMIN/GLOBULI N RATIO 1.6 1.0 - 2.5 (calc) [facility] BILIRUBIN, TOTAL 0.3 0.2 - 1.2 mg/dL [facility] ALKALINE PHOSPHATASE 64 35 - 144 U/L [facility] AST 22 10 - 35 U/L [facility] ALT 29 9 - 46 U/L [facility] Blood Blood / Unknown 02/07/2024 1 0:14 AM EST 02/07/2024 10:14 AM EST Narrative [facility] - 02/08/2024 8:06 AM EST FASTING:YES Sierra Reinoso PA-C LAB - BLOOD DRAW Edited Resu lt - Final Performing Organization Address [facility] Co de Phone Number [facility] [address] [address], General Specific [address] [address] * RPR (MONITOR) W/REFL TITER (12/13/2023 8:48 AM EDT) RPR (MONITOR) W/REFL TITER NON-REACT ELIAS NON-REACT ELIAS [facility] Blood Blood / Unknown 12/13/2023 8 :48 AM EDT 12/13/2023 8:48 AM EDT Narrative [facility] - 12/16/2023 9:29 PM EDT FASTING:YES Roya Eaton PA-C LAB - BLOOD DRAW Edited Resu lt - Final Performing Organization Address City/[facility] Co de Phone Number [facility] [address] [address], General Specific [address] [address] * HEPATITIS C AB W/RFLX HCV RNA, QT, RT PCR (06/19/2023 8:53 AM EDT) Pathologist [facility] HEPATITIS C ANTIBODY NON-REACT ELIAS NON-REACT ELIAS [facility] Comment: HCV antibody was non-reactive. There is no laboratory evidence of HCV infection. In most cases, no further action is required. However, if recent HCV exposure is suspected, a test for HCV RNA (test code 79086) is suggested. For additional information please refer to http://Zivity.KneoWorld/faq/LOY15y9 (This link is being provided for informational/ educational purposes only.) Blood Blood / Unknown 06/19/2023 8 :53 AM EDT 06/19/2023 8:54 AM EDT Narrative [facility] - 06/23/2023 1:53 PM EDT FASTING:YES us Roya Eaton PA-C LAB - BLOOD DRAW Edited Resu lt - Final [facility] [address] [place] [id number], [facility] [address] [address] * (ABNORMAL) LIPIDS W RFLX TO DIRECT LDL (04/10/2023 2:06 PM EST) [facility] CHOLESTEROL, TOTAL 149 <200 mg/dL [facility] HDL CHOLESTEROL 39(L) > OR = 40 mg/dL [facility] TRIGLYCERIDES 246(H) <150 mg/dL [facility] Comment: If a non-fasting specimen was collected, consider repeat triglyceride testing on a fasting specimen if clinically indicated. Ketan et al. J. of Clin. Lipidol. 2015;9:129-169. LDL-CHOLESTEROL 76 99 mg/dL (calc) [facility] Comment: Reference range: <100 Desirable range <100 mg/dL for primary prevention; ?? <70 mg/dL for patients with CHD or diabetic patients with > or = 2 CHD risk factors. LDL-C is now calculated using the Kat[place]ka calculation, which is a validated novel method providing better accuracy than the Friedewald equation in the estimation of LDL-C. Roman VIZCARRA et al. DAMON. 2013;310(19): 0714-0642 (http://education.Smart Plate/faq/XFV574) CHOL/HDLC RATIO 3.8 <5.0 (calc) [facility] NON-HDL CHOLESTEROL 110 <130 mg/dL (calc) [facility] Comment: For patients with diabetes plus 1 major ASCVD risk factor, treating to a non-HDL-C goal of <100 mg/dL (LDL-C of <70 mg/dL) is considered a therapeutic option. Blood Blood / Unknown 04/10/2023 2 :06 PM EST 04/10/2023 2:06 PM EST Sierra Reinoso PA-C LAB - BLOOD DRAW Final Resul t [facility] [address] [place] [id number], [facility] [address] [place] [id number] * COLONOSCOPY (02/10/2017 8:55 AM EST) Impressions Roya Eaton PA-C - 02/10/2017 8:55 AM EST Colonoscopy 02/10/17 at [facility] by Dr Acosta for rectal bleeding. Findings; diverticulosis, hemorrhoids. 1 polyp noted and resected. Pathology: colon: tubular adenoma, esophageal brushing negative for malignant cells. Advised to repeat colonoscopy in 5 years. Provider [facility] PROCEDURES Final Result * (ABNORMAL) HEPATITIS A,B,C PANEL (11/17/2016 10:18 AM EDT) HEPATITIS B SURFACE ANTIBODY POSITIVE(A) NEGATIVE [facility] HEPATITIS B SURFACE ANTIGEN NEGATIVE NEGATIVE [facility] Comment: Over the counter supplements containing high doses of biotin may interfere with this assay. ??If interference is suspected, patients shoud be retested after refraining from biotin supplements for 72 hours. HEPATITIS C VIRUS DIAGNOSTIC NEGATIVE NEGATIVE [facility] HEPATITIS B CORE ANTIBODY NEGATIVE NEGATIVE [facility] HEPATITIS A ANTIBODY TOTAL POSITIVE(A) NEGATIVE [facility] Comment: Over the counter supplements containing high doses of biotin may interfere with this assay. ??If interference is suspected, patients shoud be retested after refraining from biotin supplements for 72 hours. Blood specimen (specimen) Blood / Unknown 11/17/2016 10:18 AM EDT 11/17/2016 11:01 AM EDT [facility] - 11/17/2016 12:58 PM EDT [facility] [employer] [address] [place] [address] PT ID [id number] ORD# [id number] Joyce Busch [facility] - BLOOD DRAW Edited R esult - Final [facility] [address] [place] [address], [place] [phone] from Last 3 Months or Most Recently Relevant to Health Maintenance Insurance [place] MEDICA[place] DENTAL [facility] SAFETY [place] [address] [place] [address] PARTNERSHIP [facility] A[facility] Care Teams Set Up Mechanic Coating Machines Relationship Specialty Start Date End Date Sierra Reinoso PA-C [employer] [place] [address] PCP - General Internal Medicine 05/04/20
== END 2024-07-09 10:09 | disposition home or self-care (01) ==
LOC: HO.ENCR 09:45
PROVIDERS: PCP Physician Assistant; Visit Provider Internal Medicine Endocrinology, Diabetes & Metabolism
DX: D35.2 Benign neoplasm of pituitary gland (principal)
CPT/HCPCS: 99213

== ENCOUNTER → 2024-07-09 09:45 | Outpatient (BNVA) | payer MEDICAID, SELFPAY | PROVIDERS: PCP Physician Assistant; Visit Provider Internal Medicine Endocrinology, Diabetes & Metabolism | DX: D35.2 Benign neoplasm of pituitary gland (principal) | CPT/HCPCS: 99212 ==

== ENCOUNTER 2024-10-17 08:25 | Outpatient (REF) | payer MEDICAID, SELFPAY ==
[2024-10-17 12:54] LABS: MANUAL DIFF FLAG NO
[2024-10-17 13:15] LABS: Hematocrit 43.5 % (42.0-52.0); Hemoglobin 14.7 g/dl (14.0-18.0); Imm Gran Abs Auto 0.04 X10*3/uL (0.00-0.03); Imm Gran Pct Auto 0.5 % (0.0-0.4); Lymphocytes Absolute Auto 2.6 X10*3/uL (1.2-4.9); Mean Corpuscular HGB Conc 33.8 g/dl (31.0-36.0); Mean Corpuscular Hemoglobin 31.6 pg (27.0-33.0); Mean Corpuscular Volume 93.5 fL (80.0-98.0); NRBC Abs Auto 0.000 X10*3/uL (0.0-0.012); NRBC Pct Auto 0.0 /100WBC (0.0-0.2); Platelet Count 222 X10*3/uL (160-400); Red Blood Count 4.65 X10*6/uL (4.60-5.80); White Blood Count 8.0 X10*3/uL (4.8-10.8)
[2024-10-17 13:28] LABS: Lithium < 0.10 mmol/L (0.60-1.20)
[2024-10-17 13:36] LABS: Alanine Aminotransferase 62 U/L (0-40); Albumin Level 4.6 g/dL (3.5-5.0); Alkaline Phosphatase 79 U/L (39-117); Anion Gap 13 (12-20); Aspartate Amino Transferase 57 U/L (5-37); Blood Urea Nitrogen 13 mg/dL (9-16); Calcium 9.7 mg/dL (8.4-10.2); Carbon Dioxide 26 mmol/L (22-29); Chloride 105 mmol/L (96-108); Estimated Glomerular Filt Rate > 60; Magnesium 1.9 mg/dL (1.6-2.6); Potassium 4.0 mmol/L (3.3-5.1); Sodium 140 mmol/L (135-145); Total Protein 7.6 g/dL (6.5-8.0)
[2024-10-17 13:59] LABS: Appearance Urine Clear; Glucose Urine UA Negative (Negative); PH 5.5 (5.0-9.0); Specific Gravity - Urine >= 1.030 (1.005-1.025); UMIC TRIGGER UACC YES
[2024-10-17 14:00] LABS: Folate 9.4 ng/mL (> or = 4.0); Vitamin B12 256 pg/mL (200-900)
[2024-10-17 14:17] LABS: UACC Culture Trigger YES
[2024-10-18 12:23] LABS: Lyme Abs Screen <0.90 index
[2024-10-21 12:29] LABS: Vitamin D 25-OH, D2 <4 ng/mL; Vitamin D 25-OH, D3 23 ng/mL; Vitamin D 25-OH, Total 23 ng/mL (30-100)
[2024-10-21 15:43] LABS: Anti Nuclear Antibody Screen NEGATIVE (NEGATIVE)
== END 2024-10-17 08:26 | disposition home or self-care (01) ==
LOC: HO.HKASLDS 08:25
PROVIDERS: PCP Physician Assistant; Visit Provider Nurse Practitioner Family
DX: R10.31 Right lower quadrant pain (principal); R53.83 Other fatigue; E23.6 Other disorders of pituitary gland; H53.8 Other visual disturbances; D35.2 Benign neoplasm of pituitary gland; E55.9 Vitamin D deficiency, unspecified; R25.2 Cramp and spasm; G44.229 Chronic tension-type headache, not intractable; M25.50 Pain in unspecified joint; R80.9 Proteinuria, unspecified; R06.83 Snoring; R40.0 Somnolence
CPT/HCPCS: 36415; 80053; 80178; 81001; 81003; 82306; 82607; 82746; 83735; 84443; 85025; 85652; 86038; 86140; 86431; 86617; 86618; 87086; 87088; 87186; 99212

== ENCOUNTER 2024-10-17 08:25 | Outpatient (AMB) | payer MEDICAID, SELFPAY ==
--- OUTSIDE RECORDS SUMMARY | 2024-10-17 08:30 | XMS_ITS | Encounter Summary ---
Author Organization [facility] Address [address] [place] [address] Care Team Providers Care Press Operator Assistant Name Role Phone Sierra Reinoso PA-C Primary Care Provider + [phone] Encounter Details Date Type Department Care Team (Late st Contact Info) Description 01/17/2024 Patient Outreach [facility] [address] [place] [address] Kory Garcia, Community Health Worker [address] [place] [address] Social History Tobacco Use Types Packs/Day Years Used Date Smoking Tobacco: Former Cigarettes 1 30.2 S tarted: 08/02/1994 Smokeless Tobacco: Former Quit: 05/26/2002 Alcohol Use Standard Drinks/Week Comments Yes 15 (1 standard drink = 0.6 oz pure alcohol) Drinks 15 beers on the only/ Occasional as will Social Connections Answer Date Recorded How often do you feel lonely or isolated from th ose around you? 2 11/29/2023 Financial Resource Strain Answer Date R ecorded Hard to pay for: Food 2 11/29/2023 Stress Answer Date Recorded Do you feel these kinds of stress these days? 2 11/29/2023 Physical Activity Answer Date Recorded Physical Activity 0 12/27/2019 Food Insecurity Answer Date Recorded Hard to pay for: Food 2 11/29/2023 Transportation Needs Answer Date Record ed Hard to pay for: Transportation 1 11/29/2023 Housing Stability Answer Date Recorded Hard to pay for: Rent/Mortgage payment 1 11/29/2023 Safety and Environment Answer Date Sarthak rded Safety 0 12/22/2022 Utilities Answer Date Recorded Hard to pay for: Utilities 2 11/28 Employment Answer Date Recorded Stress 0 12/27/2019 [...] Care Team (Late st Contact Info) Description 01/20/2025 9:40 AM EDT Office Visit [facility] [address] [place] [address] Mark Lynch, [facility] [address] [place] [address] documented as of this encounter Visit Diagnoses Not on filedocumented in this encounter Additional Health Concerns Assessment Noted Time PHQ-9 Depression Total Score: 14 024 9:08 AM PDT documented as of this encounter Care Teams Press Operator Assistant Relationship Specialty Start Date End Date Sierra Reinoso PA-C [address] [place] [address] PCP - General Internal Medicine 05/04/20 documented as of this encounter
--- OUTSIDE RECORDS SUMMARY | 2024-10-17 08:30 | XMS_ITS | Clinical Summary ---
Author Organization [address] [facility] Address [address] [place] [address] Phone Care Team Providers Care Asphalt Roller Person Name Role Phone Sierra Reinoso Primary Care [...] HIV treatment. Continue lifestyle modification. Pituitary mass (CMS/HCC V24) 02/18/2021 Overview (01/03/2024): Result type:MRI Exam Not [...] on the left. Flow-voids in the adjacent tangirnaq of Chao are preserved. Hallux valgus of [...] Carrillo. In the meantime use Proctozone cream OK BID x 14 days Chronic GERD 02/01/2017 Gout 01/15/2017 Overview (01/03/2024): 12/29/16 [facility] ED for L great toe pain. Xray neg for fracture. Dx: gout, Tx: Indomethacin Major depressive disorder, r ecurrent episode with anxious distress ([facility] V24) 05/16/2016 Overview (01/03/2024): F/U Athalia Lumbar nerve root impingement 11/28/2015 Overview (01/03/2024): Nov 2015 - Mild arthritis changes of lumbar spine seen on xray [facility] and Ct abd/pelv [facility] august 2015. MRI June shows L5/S1 broad-based left paracentral protrusion, which compresses the descending S1 nerve root with moderate L neural foraminal stenosis. 09/09/16 Eval by SLICK Cox at [facility]. Has just begun injection therapy. Will have him finish injections and f/u shortly thereafter. 10/05/16 Radiofrequency lesioning at [facility] 10/10/16 Epidural steroid injection 12/13/16 [facility], f/u from L4-5 LESI ; [...] planned. Asthma 05/26/2015 Overview (01/03/2024): 02/15/18 - [facility] Pulm F/U: IMPRESSION: Severe persistent asthma with acute exacerbation will give a course of prednisone and a course of amocicillin for 7 days to continue with symbicort 160/4.5, 2 puffs q12h Spiriva 18mcg daily and albuterol as needed. HIV (human immunodeficiency virus infection) ([facility] V24, [facility] V28) 05/26/2015 Overview (01/03/2024): Diagnosed 1997 in [place] [id number] negative per lab on 05/26/15 05/12/17 [facility] ID, Dr Griffith, Anal Pap and rectal GC/Chalm screening, pharyngeal GC/Chlam screening. Anal PAP neg for intraepithelial lesion or malignancy. HTN (hypertension) 05/26/2015 Overview (01/03/2024): Last Assessment & Plan: Well-controlled. Continue current regimen. Syphilis, latent 05/26/2015 Overview (01/03/2024): PCN injections x3 June 2015 Encounters Date Type Department Care Team Description 09/16/2024 2:30 PM EDT Office Visit General Surgery - [address] [place] [address] Destin Vasques D, DO S/P umbilical hernia repair, follow-up exam (Primary Dx) from Last 3 Months Immunizations Name Administration [...] ial hypertension Human immunodeficiency virus (HIV) disease ([facility] V24, [facility] V28) DX:Human immunodefi ciency virus (HIV) disease (HCC) Right foot pain DX:Right foot pa in Hyperlipidemia Diabetes mellitus ([facility] V 24, [facility] V28) GERD (gastroesophageal reflux disease) HIV (human immunodeficiency virus infection) ([facility] V24, [facility] V28) Depression Anxiety Neuromuscular disorder ([facility] V24, [facility] V28) Arthritis Joint pain Degeneration of intervertebr al [...] Sign Reading Time Taken Comments Blood Pressure 152/88 09/16/2024 2:36 PM EDT Pulse 76 09/16/2024 2:36 PM EDT Temperature 36.2 C (97.2 F) 05/03/2024 11:00 AM EST Respiratory Rate 18 05/03/2024 11:00 AM EST Oxygen Saturation 99% 05/03/2024 11:00 AM EST Inhaled Oxygen Concentration - - Weight 102 kg (225 lb) 09/16/2024 2:36 PM EDT Height 175.3 cm (5' 9.02 ) 09/16/2024 2:36 PM ED T Body Mass Index 33.21 09/16/2024 2:36 PM EDT Plan of Treatment Health Maintenance Due Date Last Done Comments Hepatitis B Vaccines (1 of 3 - 19+ 3-dose series) 1992 Colorectal Cancer Screening: Colonoscopy 03/13/2022 Social Influencers of Health Screening 03/13/2022 MMR Vaccines (1 of 2 - Risk 2-dose series) 06/27/2022 Zoster Vaccines (1 of 2) 07/25/2022 05/30/2022, 02/02 COVID-19 Vaccine ( season) 2023 03/31/2023, 02/08/2022, 11/08/2021, Additional history exists Depression Screening 04/03/2024 Influenza Vaccine (#1) 2024 , 12/22/2022, 12/22/2021, Additional history exists Hypertension/CHF/CAD Annual BMP Blood Test 07/22/2025 07/22/2024, 02/07/2024, 01/13/2024, Additional history exists DTaP,Tdap,and Td Vaccines (3 [...] complete this topic Hepatitis C Screening Completed 07/22/2024 , 06/19/2023, 06/19/2023, Additional history exists HIB Vaccines Aged Out [...] this topic Medical Devices Implanted Type Area Computer Information Systems Professor Device Identifier Shelf Expiration Date Model / Serial / Lot Ventralex Hernia Patch Implanted:Qty: 1 on 05/03/2024 by Destin Vasques DO at [facility] N/A: Abdomen OTHER 10/28/2025 [id number] / NONE / [id number] Description:BARD Procedures Procedure Name Priority Date/Time Associated Diagnosis Comments ANNUAL BMP BLOOD TEST Routine 11/03/2023 HEPATITIS C SCREENING Routine 06/19/2023 LIPID PANEL Routine 04/10/2023 from Last 3 Months or Most Recently Relevant to Health Maintenance Results * Annual BMP Blood Test (11/03/2023) Annual BMP Blood Test Abstracted [facility] Provider HEALTH MAINTENANCE Final Result * Hepatitis C Screening (06/19/2023) Pathologist [facility] Hepatitis C Screening Abstracted [facility] Provider HEALTH MAINTENANCE Final Result * Lipid panel (04/10/2023) Pathologist [facility] Triglycerides 0 mg/dL Comment:no interpretation Cholesterol 0 mg/dL Comment:no interpretation HDL 0 mg/dL Comment:no interpretation LDL Cholesterol 0 mg/dL Comment:no interpretation Blood Venous blood specimen / Unknown [facility] Provider LAB BLOOD ORDERABLES Solange l Result from Last 3 Months or Most Recently Relevant to Health Maintenance Insurance [place] Advance Directives * Full Code - Default [...] currently active code status orders. Care Teams Asphalt Roller Person Relationship Specialty Start Date End Date Sierra Reinoso PA [facility] [place] [address] PCP - General 08/06/21
[2024-10-17 09:18] VITALS: BP 120/70; PULSE 77; O2SAT 97; BMI 32.8
--- NOTE | 2024-10-17 09:18 | MHC.OFFVIS ---
Vital Signs 10/17/24 09:18 Height 5 ft 9 in Weight 222 lb BMI 32.8 BP 120/70 Blood Pressure Location Rt brachial Position Sitting Pulse 77 Pulse Source Pulse Oximeter Pulse Oximetry (%) 97 Oxygen Delivery Method Room Air Intake Visit Reasons: 6 mo follow up Intake Note: Patient presents follow up Migraine/Sleep medication. 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 Accompanied by: Self / Same As Patient Allergies No Known Allergies Allergy (Verified 10/17/24 09:21) Medication List - Last Reconciled 10/17/24 by CHERYL Kent dqquyjrt-vhysdbqvwijk-vusotsn 600-50-300 mg (Triumeq) 1 tab PO DAILY acetaminophen mg PO albuterol sulfate 0.63 mg inhalation Q6H albuterol sulfate 90 mcg/actuation (ProAir HFA) 1 inh inhalation QID allopurinol 100 mg PO DAILY budesonide-formoterol 80-4.5 mcg/actuation (Symbicort) 1 inh inhalation BID bupropion HCl 75 mg PO TID cholecalciferol (vitamin D3) 1,250 mcg PO QWEEK 12 days clonazepam 1 mg PO TID PRN cyclobenzaprine 10 mg PO BEDTIME diclofenac potassium mg PO diclofenac sodium 1% 2 grams topical QID fluticasone propionate 50 mcg/actuation (Allergy Relief (fluticasone)) 1 spray intranasal DAILY gabapentin 600 mg (2 x 300 mg) PO BEDTIME 30 days ibuprofen 800 mg PO TID lidocaine 1.8% 1 patch topical DAILY lithium carbonate 300 mg PO BID loratadine 10 mg PO DAILY losartan 25 mg PO DAILY metformin 500 mg PO BID montelukast (Singulair) 10 mg PO BEDTIME nebivolol 0 mg PO nifedipine 10 mg PO BID omeprazole 10 mg PO DAILY paroxetine HCl 10 mg PO DAILY pravastatin 10 mg PO BEDTIME rosuvastatin 10 mg PO BEDTIME tiotropium bromide 2.5 mcg/actuation (Spiriva Respimat) 2 puffs inhalation BEDTIME zolpidem 12 mg PO BEDTIME PRN HPI Comments Details: 48-yr-old male presents for 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 Pt denies any significant interval medical changes. After the last visit, labs were notable for vitamin-D deficiency, and patient was started on vitamin-D supplement, which he has been taking. Follow-up vitamin-D level in July, was low normal at 30, and patient was advised to continue vitamin-D supplement at that time. Patient notes that in the last week, he has been having new onset right groin pain . Endorses recently being told he has proteinuria. Denies hematuria, dysuria, focal right pain back, palpable mass, RLE swelling, testicular/penis swelling/changies, recent accident/injury. Pt has had f/u with endocrinology- plan for pt to have f/u brain/pituitray MRI in Nov. Sees eye care provider for glaucoma f/u in Nov. Has f/u w/ [facility] neurosurgery in Dec. He denies any vision changes, growth, in his hand or shoe size, diplopia, or nipple drainage. He is generally photophobic d/t glaucoma. Pt reports he has a daily low grade headache that comes and goes- rest helps. The headache is throbbing in top of head or a pain running over right side of head- denies any associated s/s. Not having the occipital pressure headache. States gabapentin made him dizzy so when he takes it, he takes it as 600mg qhs- not using everyday. Using Tylenol prn- helps some. Previous workup: 10/26/2023, MRI Brain and Pituitary W+ W/O Contrast: IMPRESSION: Unchanged 1 cm nonenhancing complex cystic lesion in the left superior sella/suprasellar cistern, inseparable from the infundibulum and superior aspect of the pituitary gland. Differential considerations again include proteinaceous or hemorrhagic Rathke's cleft cyst or cystic pituitary adenoma. Suggest continued follow-up. 12/01/22, MRI Brain W+W/O Contrast COMPARISON: MRI of 03/25/2021 FINDINGS: SELLA: The pituitary gland is normal in contour and signal. Enhancement is homogeneous with no intrapituitary focal lesion. There is a normal posterior pituitary T1 bright spot. The infundibulum is displaced anteriorly and superiorly by a suprasellar mass. There is a complex cystic mass with overall appearance in the suprasellar region measuring approximately 10 x 7 x 6 mm, to the left of the midline and inseparable from the infundibulum. The mass is not changed since the prior examination. The mass demonstrates T2 hypointensity and T1 hyperintensity without definite enhancement. The mass is also contacting the inferior margin of the optic chiasm to the left of the midline, unchanged. The previously seen small focus of T2 hyperintensity extending inferiorly into the pituitary gland is not seen on this examination and may be due to slice selection. The optic chiasm, nerves, and tracts are otherwise normal in signal and contour. The hypothalamus demonstrates normal signal. BRAIN and EXTRA-AXIAL SPACES: No significant abnormality of the visualized portions of the brain and extra-axial spaces. EXTRACRANIAL SOFT TISSUES: Visualized portions of the extracranial soft tissues are unremarkable. BONES: Visualized marrow signal is preserved. IMPRESSION: Stable left upper sellar/suprasellar complex cystic mass inseparable from the infundibulum and contacting the most inferior aspect of the optic chiasm. Continued follow-up is recommended. [facility] Medical History Anxiety Asthma Depressed Gout High blood pressure High cholesterol HIV (human immunodeficiency virus infection) Pain aggravated by anxiety Surgical History H/O foot surgery Family History Sister Colon cancer Intestines cancer Social History Alcohol intake: current Patient Tobacco Use Status: Never used Tobacco Physical Exam Vital Signs: Last Vital Signs Pulse 77 10/17/24 09:18 BP 120/70 10/17/24 09:18 Pulse Ox 97 10/17/24 09:18 Oxygen Delivery Method Room Air 10/17/24 09:18 BMI result Body Mass Index 32.8 Const General: cooperative and no acute distress Orientation/consciousness: patient oriented x3 Resp Effort & Inspection: normal respiratory effort and able to speak in complete sentences General: Yes no CVA tenderness Back/Spine/Pelvis Other: Mild bilateral lower lumbar paraspinal tenderness, her position is chronic. Back: no CVA tenderness Neuro General: patient oriented x3 Cranial nerves: Yes CN's II-XII intact bilaterally Cognition (Neuro): normal cognition Motor exam (neuro): 5/5 motor strength present throughout Deep tendon reflexes (DTR's): Right patellar reflex intensity grade: 2+ and Left patellar reflex intensity grade: 2+ Psych Appearance: grossly normal Mental Status: mental status grossly normal Speech and movement: Normal speech and movement present Affect: normal affect Attitude: cooperative Assessment & Plan Assessment & Plan (1) Other disorders of pituitary gland: Comment: Pituitary cyst. MRI of brain w+wo contrast on 03/25/21 at [facility]. 1 cm complex cystic lesion in the left upper sella/suprasella cistern, inseparable from the infundibulum and superior aspect of the pituitary gland. Code(s): E23.6 - Other disorders of pituitary gland Category: Medical (2) Blurry vision: Code(s): H53.8 - Other visual disturbances Category: Medical (3) Pituitary macroadenoma: Code(s): D35.2 - Benign neoplasm of pituitary gland Category: Medical (4) Right groin pain: Code(s): R10.31 - Right lower quadrant pain Category: Medical (5) Vitamin D deficiency: Code(s): E55.9 - Vitamin D deficiency, unspecified Category: Medical (6) Muscle cramps: Code(s): R25.2 - Cramp and spasm Category: Medical (7) Tension type headache: Comment: Question chronic migraine Code(s): G44.209 - Tension-type headache, unspecified, not intractable Category: Medical Qualifiers: Headache chronicity pattern: chronic headache Intractability: not intractable Qualified Code(s): G44.229 - Chronic tension-type headache, not intractable Plan For right groin pain, new onset: No focal neuro signs. Check labs and UA For suprasellar mass- Reviewed interval [facility] Neurosurgery and [facility] endocrinology notes Follow-up with Endocrinology and [facility] Neurosurgery as scheduled. Endocrinology has initiate follow-up brain MRI and pituitary w/wo for March. Pt requests MRI at [facility] under sedation d/t severe anxiety and claustrophobia. For headache: Continue Gabapentin 600 mg q.h.s. more regularly in hopes this decreases frequency of headache. Tylenol prn. For snoring, sleep difficulties and excessive daytime sleepiness: Today, patient verbalizes symptoms suggestive of restless leg and/or periodic limb movement of sleep. We will recheck vitamin-D level Check labs for alternate etiologies Continue vitamin-D supplement for now. Patient states last sleep study at [facility] was also within normal limits. Future considerations: ENT consult f/u upon review of above and in 6 months or sooner prn. Addendum: 10/17/2024 UA was positive for nitrates, elevated specific gravity at 1.030, clear, dark yellow urine. Citrobacter koseri, Quant 10,000 to 50,000 cfu/mL Results reviewed with patient, he was still experiencing right groin discomfort, denied fever, hematuria, dysuria. Patient advised to increase fluid intake, order sent for Cipro 250 mg p.o. b.i.d. x7 days, as Bactrim was contraindicated due to current use of losartan. Patient advised of risks and benefits of using ciprofloxacin, advised to use caution due to risk for tendonitis-tendon injury. Orders: Orders Complete Blood Count Auto Diff 10/17/24 E55.9 - Vitamin D deficiency, unspecified, M25.50 - Pain in unspecified joint, R25.2 - Cramp and spasm, R53.83 - Other fatigue, R80.9 - Proteinuria, unspecified Comprehensive Met. Panel 10/17/24 E55.9 - Vitamin D deficiency, unspecified, M25.50 - Pain in unspecified joint, R25.2 - Cramp and spasm, R53.83 - Other fatigue, R80.9 - Proteinuria, unspecified Vitamin B12 and Folate 10/17/24 E55.9 - Vitamin D deficiency, unspecified, M25.50 - Pain in unspecified joint, R25.2 - Cramp and spasm, R53.83 - Other fatigue, R80.9 - Proteinuria, unspecified CANDIDA Reflex Titer and Pattern 10/17/24 E55.9 - Vitamin D deficiency, unspecified, M25.50 - Pain in unspecified joint, R25.2 - Cramp and spasm, R53.83 - Other fatigue, R80.9 - Proteinuria, unspecified Rheumatoid Factor 10/17/24 E55.9 - Vitamin D deficiency, unspecified, M25.50 - Pain in unspecified joint, R25.2 - Cramp and spasm, R53.83 - Other fatigue, R80.9 - Proteinuria, unspecified Erythrocyte Sedimentation Rate 10/17/24 E55.9 - Vitamin D deficiency, unspecified, M25.50 - Pain in unspecified joint, R25.2 - Cramp and spasm, R53.83 - Other fatigue, R80.9 - Proteinuria, unspecified UA CC w/rflx Micro + Cult 10/17/24 R10.31 - Right lower quadrant pain, R80.9 - Proteinuria, unspecified Vitamin D 25-OH (D2 and D3) 10/17/24 E55.9 - Vitamin D deficiency, unspecified, M25.50 - Pain in unspecified joint, R25.2 - Cramp and spasm, R53.83 - Other fatigue, R80.9 - Proteinuria, unspecified TSH reflex Free T4 10/17/24 E55.9 - Vitamin D deficiency, unspecified, M25.50 - Pain in unspecified joint, R25.2 - Cramp and spasm, R53.83 - Other fatigue, R80.9 - Proteinuria, unspecified Lennox 10/17/24 E55.9 - Vitamin D deficiency, unspecified, M25.50 - Pain in unspecified joint, R25.2 - Cramp and spasm, R53.83 - Other fatigue, R80.9 - Proteinuria, unspecified C Reactive Protein 10/17/24 E55.9 - Vitamin D deficiency, unspecified, M25.50 - Pain in unspecified joint, R25.2 - Cramp and spasm, R53.83 - Other fatigue, R80.9 - Proteinuria, unspecified Lyme IgG/IgM w/reflex to WB 10/17/24 E55.9 - Vitamin D deficiency, unspecified, M25.50 - Pain in unspecified joint, R25.2 - Cramp and spasm, R53.83 - Other fatigue, R80.9 - Proteinuria, unspecified Magnesium 10/17/24 R25.2 - Cramp and spasm Medications: Refilled gabapentin 600 mg (2 x 300 mg) PO BEDTIME 60 caps 6RF 30 days cholecalciferol (vitamin D3) 1,250 mcg PO QWEEK 12 caps 1RF 12 days E55.9 - Vitamin D deficiency, unspecified Discontinued alprazolam (Xanax) Discontinued Reason: Doctor's Order Take 1 tab of 0.25 mg orally for MRI, may repeat X1. 1 day 2 tabs 0RF Coding Level of Care Code Est Pt Level 4 (83346) Diagnoses Other disorders of pituitary gland E23.6 Blurry vision H53.8 Pituitary macroadenoma D35.2 Right groin pain R10.31 Vitamin D deficiency E55.9 Muscle cramps R25.2 Chronic tension-type headache, not intractable G44.229 Headache chronicity pattern: chronic headache Intractability: not intractable
== END 2024-10-17 10:24 | disposition home or self-care (01) ==
LOC: HO.HSMS 08:26
PROVIDERS: PCP Physician Assistant; Visit Provider Nurse Practitioner Family
DX: E23.6 Other disorders of pituitary gland (principal); H53.8 Other visual disturbances; D35.2 Benign neoplasm of pituitary gland; R10.31 Right lower quadrant pain; E55.9 Vitamin D deficiency, unspecified; R25.2 Cramp and spasm; G44.229 Chronic tension-type headache, not intractable
CPT/HCPCS: 99214

== ENCOUNTER 2025-03-26 08:33 | Outpatient (AMB) | payer MEDICAID, SELFPAY ==
--- OUTSIDE RECORDS SUMMARY | 2024-01-12 06:30 | XMS_ITS | Encounter Summary ---
Author Organization [facility] Address [address] [place] [address] Care Team Providers Care Optometrist Name Role Phone Sierra Reinoso Primary Care Provider Encounter Details Date Type Department Care Team (Late st Contact Info) Description 01/12/2024 7:30 AM EDT Hospital Encounter TH HISTORIC ENCOUNTERS [facility]AST[facility] CONVERSION ONLY Sierra Reinoso PA [address] [place] [address] Social History Tobacco Use Types Packs/Day Years Used Date Smoking Tobacco: Never Passive Smoke Exposure: Never Smokeless Tobacco: Never Alcohol Use Standard Drinks/Week Comments Yes 6 (1 standard drink = 0.6 oz pur e alcohol) OCCASIONALLY Interpersonal Safety Answer Date Record ed Physical Abuse Unrecognized value 05/03/2024 Verbal Abuse Unrecognized value 05/03/2024 Sex and Gender Information Value Date Recorded Sex Assigned at Male 04/30/2024 10:34 AM EST Legal Sex Male 1:35 PM EST Gender Identity Male 04/30/2024 10:34 AM EST Sexual Orientation Lesbian or Owens 04/30/2024 5: 22 PM EST documented as of this encounter Plan of Treatment Upcoming Encounters Date Type Department Care Team (Late st Contact Info) Description 05/14/2025 9:00 AM EST Office Visit Gastroenterology - [address] [phone] Ellis Landrum MD [address] [address] documented as of this encounter Visit Diagnoses Not on filedocumented in this encounter Additional Health Concerns Infection Onset Date Last Indicated Resolved Time Gastrointestinal Rule-Out 12/03/2024 12/03/2024 10:00 AM EDT C. difficile Rule-Out 12/03/2024 12/03/20242024 10:01 AM EDT Enteroaggregative E. coli (EAEC) 12/03/2024 12/04/19 Giardia lamblia 12/03/2024 12/03/2024 documented as of this encounter Care Teams Optometrist Relationship Specialty Start Date End Date Sierra Reinoso PA [address] [place] [id number] PCP - General 08/06/21 documented as of this encounter
--- OUTSIDE RECORDS SUMMARY | 2025-03-26 08:36 | XMS_ITS | Clinical Summary ---
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 Active zolpidem CR (AMBIEN CR) 12.5 mg CR tablet Take 1 tablet (12.5 mg total) by mouth at bedtime as needed for sleep. Do not crush, chew, or split. Active metFORMIN (FORTAMET) 500 mg 24 hr tablet Take 1 tablet (500 mg total) by mouth 2 (two) times a day. Do not crush, chew, or split. Active acetaminophen (TYLENOL) 500 mg tablet Take 2 tablets (1,000 mg total) by mouth every 6 (six) hours if needed for mild pain. 60 tablet 5 Active ibuprofen (ADVIL,MOTRIN) 600 mg tablet Take 1 tablet (600 mg total) by mouth every 8 (eight) hours if needed for mild pain. 60 tablet 5 Active omeprazole (PriLOSEC) [address] capsuleIndicati ons:Epigastric pain Take 1 capsule (40 mg total) by mouth 2 (two) times a day. Do not crush or chew. 180 each 3 5 11/30/19 26 Active sucralfate (CARAFATE) 100 mg/mL suspensionIndic ations:Chronic GERD TAKE 10 ML BY MOUTH 2 TIMES A DAY. TAKE 1 HOUR BEFORE A MEAL AND AT BEDTIME 600 mL Active vonoprazan 10 mg tabletIndicatio ns:Epigastric pain,Chronic GERD Take 10 mg by mouth 1 (one) time each day. 30 tablet 11 5 01/24/20 26 Active pregabalin (LYRICA) 25 mg capsule Take 1 capsule (25 mg total) by mouth 2 (two) times a day. Max Daily Amount: 50 mg Active glipiZIDE (GLUCOTROL XL) 10 mg 24 hr tablet Take 1 tablet (10 mg total) by mouth 2 (two) times a day. Do not crush, chew, or split. Active Active Problems Problem Noted Date Diagnosed Date Decreased appetite 11/25/2024 Diarrhea 11/25/2024 Assessment & Plan (11/29/2024 5:37 PM EDT): KUB for further evaluation, rule out constipation. Recommended the patient complete stool studies as well. Rule out celiac disease. Recommend patient avoid excessive Imodium use. Orders: XR Abdomen 1 View; Future Gastrointestinal pathogens molecular study; Future Clostridium difficile toxin; Future Pancreatic elastase 1; Future Tissue transglutaminase, IgA; Future Endomysial antibody, IgA; Future Thyroid stimulating hormone; Future Dyspepsia 11/25/2024 Postprandial epigastric pain 11/25/2024 Umbilical hernia without obstruction or gangrene 04/22/2024 SOB (shortness of breath) 10/18/2023 Weakness 10/18/2023 Glaucoma of both eyes 07/05/2023 Prediabetes 07/05/2023 Ganglion cyst of volar aspect of right wrist Class 1 obesity 08/24/2021 Irritable bowel syndrome 08/24/2021 Spondylosis of lumbar spine 08/24/2021 Chest pain 08/11/2021 Overview (01/03/2024): Last Assessment & Plan: With negative ischemia work-up by stress test. Symptom has subsided. Assessment & Plan (11/27/2024 10:27 AM EDT): Patient has a history of atypical chest pain for many years. He is again reporting episodes of chest pressure/burning which occur with or without exertion and are brief in nature. He does have risk factors (hypertension, hyperlipidemia, obesity, prediabetes and family history of premature coronary artery disease). EKG done in the office today shows a new T-wave inversion in lead III. Last stress testing was in 2019 and was negative for ischemia. Patient is profoundly claustrophobic and did not feel he would do well with a nuclear stress test. Will update stress echocardiogram to reassess for ischemia. For any chest pain/discomfort, especially if associated with exertion, that lasts longer than 10-15 minutes and does not resolve with rest, patient has been encouraged to seek immediate medical attention by calling 911. Palpitations 08/11/2021 Overview (01/03/2024): Last Assessment & Plan: With some minor PVCs. He is switched to Bystolic and we will continue the regimen. Hyperlipidemia 05/18/2021 Overview (01/03/2024): Last Assessment & Plan: Slightly elevated triglyceride. This could be related to his HIV treatment. Continue lifestyle modification. Assessment & Plan (11/27/2024 9:24 AM EDT): Last lipid panel reviewed, total cholesterol 137, LDL 63. Triglycerides elevated at 232. This could be related to his HIV treatment. No change to current medical therapy, continue rosuvastatin as prescribed. Continue with efforts to follow a low fat, heart healthy diet, increase exercise and maintain a healthy weight to maximize risk reduction. Pituitary mass 02/18/2021 Overview (01/03/2024): Result type:MRI [...] on the left. Flow-voids in the adjacent [place] of [place] are preserved. Pituitary macroadenoma 02/18/2021 Overview (11/25/2024): Follows with [facility] Neurology and endocrinology 10/26/23 MRI Brain and [...] on the left. Flow-voids in the adjacent [place] of [place] are preserved. Hallux valgus of right foot 02/10/2018 Overview (01/03/2024): 01/09/18 - R foot xray: no fx, mild hallux valgus deformity with overlying soft tissue swelling. Small tailor's bunion. 05/10/18 - Seen by podiatry. Steroid injection given. Neck pain 02/10/2018 Overview (11/25/2024): EXAM: X-RAY CERVICAL SPINE 4-5 VIEWS 06/01/2023 [...] Xray c-spine: mild degenerative changes at C5-C6 Internal hemorrhoids 03/24/2017 Overview (01/03/2024): 01/10/18 - Seen by Gen surg for eval of external hemorrhoids. Due to ongoing bleeding, pt is interested in surgery. Will discuss with Dr. Carrillo. In the meantime use Proctozone cream OR BID x 14 days Chronic GERD 02/01/2017 Gout 01/15/2017 Overview (01/03/2024): 12/29/16 [facility] ED for L great toe pain. Xray neg for fracture. Dx: gout, Tx: Indomethacin Major depressive disorder, r ecurrent episode with anxious distress 05/16/2016 Overview (01/03/2024): F/U [place] Lumbar nerve root impingement 11/28/2015 Overview (01/03/2024): Nov 2015 - Mild arthritis changes of lumbar spine seen on xray [facility] and Ct abd/pelv [facility] august 2015. MRI June shows L5/S1 broad-based left paracentral protrusion, which compresses the descending S1 nerve root with moderate L neural foraminal stenosis. 09/09/16 Eval by SLICK Cox at [facility]. Has just begun injection therapy. Will have him finish injections and f/u shortly thereafter. 10/05/16 Radiofrequency lesioning at [facility] Pain Management 10/10/16 Epidural steroid injection 12/13/16 [facility] Pain Managemetn, f/u from L4-5 LESI [...] planned. Abnormal anal Papanicolaou smear 09/02/2015 Overview (11/25/2024): 05/12/17 - Anal PAP neg for intraepithelial lesion or malignancy. Asthma 05/26/2015 Overview (01/03/2024): 02/15/18 - [facility] Pulm F/U: IMPRESSION: Severe persistent asthma with acute exacerbation will give a course of prednisone and a course of amocicillin for 7 days to continue with symbicort 160/4.5, 2 puffs q12h Spiriva 18mcg daily and albuterol as needed. HIV (human immunodeficiency virus infection) Overview (01/03/2024): Diagnosed 1997 in [place] [id number] negative per lab on 05/26/15 05/12/17 [facility] ID, Dr Griffith, Anal Pap and rectal GC/Chalm screening, pharyngeal GC/Chlam screening. Anal PAP neg for intraepithelial lesion or malignancy. HTN (hypertension) 05/26/2015 Overview (01/03/2024): Last Assessment & Plan: Well-controlled. Continue current regimen. Assessment & Plan (11/27/2024 10:23 AM EDT): Blood pressure is well-controlled in the office today at 126/78. Continue current medical therapy with losartan-HCTZ, Nebivolol and nifedipine as prescribed. Syphilis, latent 05/26/2015 Overview (01/03/2024): PCN injections x3 June 2015 Encounters Date Type Department Care Team Description 03/05/2025 10:00 AM EST Office Visit General Surgery [facility] [address] [phone] Destin Vasques, DO S/P umbilical hernia repair, follow-up exam (Primary Dx) 02/26/2025 7:19 AM EST - 02/26/2025 11:59 PM EST Hospital Encounter [facility] CT Scan [address] [place] [phone] S/P umbilical hernia repair, follow-up exam Discharge Disposition: Home or Self Care 02/05/2025 8:45 AM EST Office Visit Orthopedic Surgery [facility] [address] [phone] Juan Gonzalez DPM Controlled type 2 diabetes with neuropathy (CMS/HCC V24, CMS/HCC V28) (Primary Dx); Pain in both feet; Equinus contracture of right ankle; Posterior tibial tendinitis of right leg; Plantar fasciitis 01/29/2025 Telephone General [facility] [address] [phone] Destin Vasques, 01/28/2025 2:15 PM EDT Office Visit General [facility] [address] [phone] Destin Vasques, DO S/P umbilical hernia repair, follow-up exam (Primary Dx) 01/23/2025 Telephone Gastroenterology - 299 [facility] 299 [facility] [address] [place] [phone] Ellis Landrum MD 01/22/2025 Telephone General Surgery [facility] 175 [facility] [address] [place] [phone] Isi Hendricks [place] 01/15/2025 Telephone [facility] - [facility] 154 300 [facility] [address] [place] [phone] Anay Anderson MD 01/13/2025 Telephone Orthopedic Surgery [facility] [address] [phone] Juan Gonzalez DPM 01/08/2025 11:00 AM EDT Office Visit Orthopedic Surgery [facility] [address] [phone] Juan Gonzalez, DPM Pain in both feet (Primary Dx); Equinus contracture of right ankle; Pes planus of both feet; Posterior tibial tendinitis of right leg; Plantar fasciitis 01/03/2025 Telephone Gastroenterology - [address] [place] [phone] Ellis Landrum MD from Last 3 Months Immunizations Immunization Administration Dates Next Due Hepatitis A Adult [...] HEMORRHOIDS HEMORRHOID SURGERY EYE SURGERY BUNIONECTOMY Right ESOPHAGOGASTRODUODENOSCOPY 07/11/2023 Unremarkable COLONOSCOPY 07/11/2023 5-year recall Medical History Medical History Date Comments Asthma DX:Asthma Essential hypertension DX:Essent ial hypertension Human immunodeficiency virus (HIV) disease ([facility] V24, [facility] V28) DX:Human immunodefi ciency virus (HIV) disease ([facility]) Right foot pain DX:Right foot pa in Hyperlipidemia Diabetes mellitus ([facility] V 24, [facility] V28) GERD (gastroesophageal reflux disease) HIV (human immunodeficiency virus infection) ([facility] V24, [facility] V28) Depression Anxiety Neuromuscular disorder ([facility] V24, [facility] V28) Arthritis Joint pain Degeneration of intervertebr [...] or Owens 04/30/2024 5: 22 PM EST Last Filed Vital Signs Vital Sign Reading Time Taken Comments Blood Pressure 156/83 03/05/2025 9:51 AM EST Pulse 71 03/05/2025 9:51 AM EST Temperature 35.9 C (96.6 F) 03/05/2025 9:51 AM EST Respiratory Rate 18 05/03/2024 11:00 AM EST Oxygen Saturation 96% 11/27/2024 9:19 AM EDT Inhaled Oxygen Concentration - - Weight 101 kg (222 lb) 03/05/2025 9:51 AM EST Height 175.3 cm (5' 9 ) 01/28/2025 2:05 PM EDT Body Mass Index 32.78 01/28/2025 2:05 PM EDT Plan of Treatment Upcoming Encounters Date Type Department Care Team (Late st Contact Info) Description 05/14/2025 9:00 AM EST Office Visit Gastroenterology - 299 [place] [address] [facility] [address] [place] [phone] Ellis Landrum MD [address] [phone] Health Maintenance Due Date Last Done Comments Drug Screen 1973 Non-Opioid Controlled Substance Agreement 1973 Diabetes: Annual Foot Exam 1983 Diabetes: Annual Retina Eye Exam 1983 MMR Vaccines (1 of 2 - Risk 2-dose series) 1991 Hepatitis B Vaccines (1 of 3 - 19+ 3-dose series) 1992 Social Influencers of Health Screening 03/13/2022 Zoster Vaccines (1 of 2) 07/25/2022 05/30/2022, 02/02 RSV Immunization Adult Patients (1 - Risk 50-74 years 1-dose series) 2023 Depression Screening 04/03/2024 COVID-19 Vaccine ( season) 2024 03/31/2023, 02/08/2022, 11/08/2021, Additional history exists Influenza Vaccine (#1) 2024 , 12/22/2022, 12/22/2021, Additional history exists Diabetes: Annual Urine Albumin-Creatinine Ratio (uACR) 02/05/2025 Diabetes: Blood Sugar Control Test (HGBA1C) 03/22/2025 09/20/2024, 02/07/2024, 11/03/2023, Additional history exists DTaP,Tdap,and Td Vaccines (3 - Td or Tdap) 08/23/2025 08/24/2015, 11/01/1984 Diabetes: Annual GFR (Glomerular Filtration Rate) 01/02/2026 01/02/2025, 11/29/2024, 09/20/2024, Additional history exists Hypertension/CHF/CAD Annual BMP Blood Test 01/02/2026 01/02/2025, 11/29/2024, 09/20/2024, Additional history exists Meningococcal ACWY Vaccine (3 - Risk 2-dose series) 08/23/2026 08/23/2021, 01/11/2017 Cholesterol Screening (Lipid Panel) 09/20/2029 09/20/2024, 04/10/2023, 04/10/2023, Additional history exists Colorectal Cancer Screening: Colonoscopy 07/10/2033 07/11/2023 Hepatitis A Vaccines Completed 07/16/2010, 01/02/20 10 [...] this topic Medical Devices Implanted Type Area Imcu Specialist Device Identifier Shelf Expiration Date Model / Serial / Lot Ventralex Hernia Patch Implanted:Qty: 1 on 05/03/2024 by Destin Vasques DO at [facility] N/A: Abdomen OTHER 10/28/2025 [id number] / NONE / [id number] Description:BARD Procedures Procedure Name Priority Date/Time Associated Diagnosis Comments CT ABDOMEN PELVIS W CONTRAST Routine 02/26/2025 7:48 AM EST S/P umbilical hernia repair, follow-up exam INJECTION TENDON OR LIGAMENT Routine 02/05/2025 8:45 AM EST Plantar fasciitis INJECTION TENDON OR LIGAMENT Routine 01/08/2025 11:00 AM EDT Plantar fasciitis COMPREHENSIVE METABOLIC PANEL Routine 11/29/2024 9:53 AM EDT Epigastric pain HEMOGLOBIN A1C Routine 11/03/2023 COLONOSCOPY Routine 07/11/2023 2:31 PM EDT HM HEPATITIS C SCREENING Routine 06/19/2023 LIPID PANEL Routine 04/10/2023 from Last 3 Months or Most Recently Relevant to Health Maintenance Results * CT Abdomen Pelvis w Contrast (02/26/2025 7:48 AM EST) Anatomical Region Laterality Modality Body Computed Tomogra phy 03/06/2025 1:37 PM EST Impressions 03/06/2025 1:39 PM EST No umbilical hernia. -------- FINAL REPORT -------- Dictated By: Anu Tipton Dictated Date: 03/06/2025 13:37 ET Assigned Physician: Anu Tipton Reviewed and Electronically Signed By: Anu Tipton Signed Date: 03/06/2025 13:39 ET Workstation ID: [id number] Transcribed By: Self Edit Transcribed Date: 03/06/2025 13:37 ET Narrative 03/06/2025 1:39 PM EST PROCEDURE: CT ABDOMEN/PELVIS WITH CONTRAST INDICATION: r/o umbilical hernia recurrence TECHNIQUE: CT of the abdomen and pelvis following the intravenous administration of 90cc Isovue 370. Multiplanar reformats. The examination was performed utilizing dose reduction techniques. Total DLP 1487 COMPARISON: 11/21/2021 FINDINGS: LOWER THORAX: Lung bases are clear. HEPATOBILIARY: No focal liver lesions. No cholelithiasis or biliary duct dilatation. SPLEEN: No focal lesion. PANCREAS: No focal mass or ductal dilatation. ADRENALS: No nodules. KIDNEYS/URETERS: There is a exophytic cyst off the posterior lower pole left kidney measuring 2.2 cm. No solid mass or hydronephrosis. PELVIC ORGANS/BLADDER: Unremarkable. PERITONEUM / RETROPERITONEUM: No ascites or free air. No retroperitoneal lymphadenopathy. VESSELS: No aneurysm. GI TRACT: No bowel distention or wall thickening. Normal appendix. BONES AND SOFT TISSUES: Scattered degenerative changes seen throughout the bones. No umbilical hernia. Procedure Note Anu Tipton MD - 03/06/2025 PROCEDURE: CT ABDOMEN/PELVIS WITH CONTRAST INDICATION: r/o umbilical hernia recurrence TECHNIQUE: CT of the abdomen and pelvis following the intravenousadministration of 90cc Isovue 370. Multiplanar reformats. The examinationwas performed utilizing dose reduction techniques. Total DLP 1487 COMPARISON: 11/21/2021 FINDINGS: LOWER THORAX: Lung bases are clear. HEPATOBILIARY: No focal liver lesions. No cholelithiasis or biliary ductdilatation. SPLEEN: No focal lesion. PANCREAS: No focal mass or ductal dilatation. ADRENALS: No nodules. KIDNEYS/URETERS: There is a exophytic cyst off the posterior lower poleleft kidney measuring 2.2 cm. No solid mass or hydronephrosis. PELVIC ORGANS/BLADDER: Unremarkable. PERITONEUM / RETROPERITONEUM: No ascites or free air. No retroperitoneallymphadenopathy. VESSELS: No aneurysm. GI TRACT: No bowel distention or wall thickening. Normal appendix. BONES AND SOFT TISSUES: Scattered degenerative changes seen throughout thebones. No umbilical hernia. IMPRESSION: No umbilical hernia. -------- FINAL REPORT -------- Dictated By: Anu Tipton Dictated Date: 03/06/2025 13:37 ET Assigned Physician: Anu Tipton Reviewed and Electronically Signed By: Anu Tipton Signed Date: 03/06/2025 13:39 ET Workstation ID: [id number] Transcribed By: Self Edit Transcribed Date: 03/06/2025 13:37 ET us Destin Vasques DO IMG CT PROCEDURES Final Result * Injection tendon or ligament (02/05/2025 8:45 AM EST) Narrative Juan Gonzalez DPM - 02/05/2025 8:45 AM EST Juan Gonzalez DPM 02/05/2025 8:43 PM Injection tendon or ligament Indications: pain Details: 25 G needle Medications: 0.5 mL lidocaine (PF) 1 %; 40 mg triamcinolone acetonide 40 mg/mL Informed Consent: Laterality: Right us Juan Gonzalez DPSandy IN CLINIC/BEDSIDE ORDERABLE S Final Result * Injection tendon or ligament (01/08/2025 11:00 AM EDT) Narrative Juan Gonzalez DPM - 01/08/2025 11:00 AM EDT Juan Gonzalez DPM 01/08/2025 11:24 AM Injection tendon or ligament Indications: pain Details: 25 G needle Medications: 0.5 mL lidocaine (PF) 1 %; 40 mg triamcinolone acetonide 40 mg/mL Informed Consent: Laterality: Right us Juan Gonzalez DPM IN CLINIC/BEDSIDE ORDERABLE S Final Result * (ABNORMAL) Comprehensive metabolic panel (11/29/2024 9:53 AM EDT) Sodium 138 133 - 145 mmol/L LAB CHEMISTRY METHOD 11/29/2024 11:16 AM [facility] Potassium 4.2 3.5 - 5.5 mmol/L LAB CHEMISTRY METHOD 11/29/2024 11:16 AM [facility] Chloride 103 96 - 110 mmol/L LAB CHEMISTRY METHOD 11/29/2024 11:16 AM [facility] CO2 28 21 - 32 mmol/L LAB CHEMISTRY METHOD 11/29/2024 11:16 AM [facility] Anion Gap 7 3 - 11 LAB CHEMISTRY METHOD 11/29/2024 11:16 AM [facility] Glucose 105(H) 70 - 100 mg/dL LAB CHEMISTRY METHOD 11/29/2024 11:16 AM [facility] BUN 8 5 - 25 mg/dL LAB CHEMISTRY METHOD 11/29/2024 11:16 AM [facility] Creatinine 1.07 0.70 - 1.30 mg/dL LAB CHEMISTRY METHOD 11/29/2024 11:16 AM [facility] eGFR 84 >=60 mL/min/1. 73m2 LAB CHEMISTRY METHOD 11/29/2024 11:16 AM [facility] Comment:Calculation based on the Chronic Kidney Disease Epidemiology Collaboration (CKD-EPI) equation refit without adjustment for race. BUN/Creatinine Ratio 7.5 LAB CHEMISTRY METHOD 11/29/2024 11:16 AM [facility] Calcium 9.3 8.5 - 10.5 mg/dL LAB CHEMISTRY METHOD 11/29/2024 11:16 AM [facility] AST (SGOT) 42 10 - 42 unit/L LAB CHEMISTRY METHOD 11/29/2024 11:16 AM [facility] ALT (SGPT) 55 10 - 60 unit/L LAB CHEMISTRY METHOD 11/29/2024 11:16 AM [facility] Alkaline Phosphatase 98 42 - 121 unit/L LAB CHEMISTRY METHOD 11/29/2024 11:16 AM [facility] Total Protein 7.8 6.0 - 8.0 g/dL LAB CHEMISTRY METHOD 11/29/2024 11:16 AM [facility] Albumin 4.2 3.2 - 5.0 g/dL LAB CHEMISTRY METHOD 11/29/2024 11:16 AM [facility] Total Bilirubin 0.3 0.0 - 1.4 mg/dL LAB CHEMISTRY METHOD 11/29/2024 11:16 AM [facility] Blood Venous blood specimen / Unknown Venipuncture / Unknown 11/29/2024 9:53 AM EDT 11/29/2024 10:11 AM EDT us Marilyn URBINA LAB BLOOD ORDERABLES Final Resu lt [facility] [address] [place] [address], * Hemoglobin A1c (11/03/2023) Pathologist [facility] Hemoglobin A1C 0.0 % Comment:no interpretation Blood Venous blood specimen / Unknown Historical Provider LAB BLOOD ORDERABLES Solange l Result * COLONOSCOPY (07/11/2023 2:31 PM EDT) Anatomical Region Laterality Modality Endoscopy Historical Provider GI~PROCEDURE ORDERABLES F inal Result * Hepatitis C Screening (06/19/2023) [facility] Hepatitis C Screening Abstracted Historical Provider HEALTH MAINTENANCE Final Result * Lipid panel (04/10/2023) [facility] Triglycerides 0 mg/dL Comment:no interpretation Cholesterol 0 mg/dL Comment:no interpretation HDL 0 mg/dL Comment:no interpretation LDL Cholesterol 0 mg/dL Comment:no interpretation Blood Venous blood specimen / Unknown Historical Provider LAB BLOOD ORDERABLES Solange l Result from Last 3 Months or Most Recently Relevant to Health Maintenance Additional Health Concerns Infection Onset Date Last Indicated Enteroaggregative E. coli (EAEC) 12/03/2024 12/03/2024 Giardia lamblia 12/03/2024 12/03/2024 Insurance MEDICAID - [place] Advance Directives * Full Code - Default [...] active code status orders. 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
--- OUTSIDE RECORDS SUMMARY | 2025-03-26 08:36 | XMS_ITS | Clinical Summary ---
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 Name Role Phone Unavailable Primary Care Provider Unavailabl e Social History Tobacco Use Types Packs/Day Years Used Date Smoking Tobacco: Never Assessed Sex and Gender Information Value Date Recorded Sex Assigned at Not on file Legal Sex Male 9:21 PM EDT Gender Identity Not on file Sexual Orientation Not on file Plan of Treatment Health Maintenance Due Date Last Done Comments CT Colonography 1973 Depression Screening 1973 FIT DNA/Cologuard 1973 FIT 1973 FOBT 1973 Lipid Panel 1973 SDOH Screening 1973 Sigmoidoscopy 1973 Disability Screening 1973 Alcohol/Substance Use Screening 1985 Tobacco Screening 1985 Family Planning (PISQ) 1988 Hepatitis C Screening 1991 Hepatitis B Vaccines (1 of 3 - 19+ 3-dose series) 1992 Zoster Vaccines (1 of 2) 1992 RSV Patients and Patients Aged 60 years or older (1 - Risk 50-74 years 1-dose series) 2023 COVID-19 Vaccine ( season) 2024 03/31/2023, 02/08/2022, 11/08/2021, Additional history exists Influenza Vaccine (#1) 2024 , 12/22/2022, 12/22/2021, Additional history exists DTaP/Tdap/Td Vaccines (3 - Td or Tdap) 08/23/2025 08/24/2015, 11/01/1984 Meningococcal Vaccine (3 - Risk 2-dose series) 08/23/2026 08/23/2021, 01/11/2017 Colonoscopy 07/10/2033 07/11/2023 Colorectal Cancer Screening 07/10/2033 Hepatitis A Vaccines Completed 07/16/2010, 01/02/20 Pneumococcal Vaccine: 50+ Years Completed 02/08/2022, 11/17/2016, 08/24/2015, Additional history exists HIV Screening Completed 01/02/2025, 05/2024, 07/22/2024, Additional history exists HIB Vaccines Aged Out [...] patient's age to complete this topic RSV under 20 months Aged Out No longe r eligible based on patient's age to complete this topic Rotavirus Vaccines Aged Out No longer eligible based on patient's age to complete this topic
--- NOTE | 2025-03-26 09:06 | A.PHYSOV_ITS ---
Vital Signs 03/26/25 09:08 Height 5 ft 9 in Weight 225 lb BMI 33.2 Intake Visit Reasons: MRI followup Intake Note: Patient is a 49 year old male here today for review of MRI. 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 He reports significant back pain, shoulder pain, and right leg pain that radiates from the groin down the leg. Regarding his leg pain, he previously experienced it on the left side, but it has since migrated to the right side. A recent evaluation for his right leg pain ruled out the presence of blood clots. An MRI of his lumbar spine showed a disc bulge and arthritis causing impingement of the left S1 nerve root, which is inconsistent with his current right-sided symptoms. For his shoulder pain, he received an injection in December which provided temporary relief. The patient does not have a history of diabetes. Pain Description - Location: Patient reports pain in his back, shoulder, and right leg. - Radiation: The right leg pain radiates from the groin down the leg. - Severity: Describes the pain as pretty bad. - History: Previously had left-sided leg pain, which has now migrated to the right side. - Exacerbating Factors: Pain is elicited in the right groin with passive movement of the right hip. Procedure: Left C6 TFESI 10/20/2024 50% reduction of his neck pain Left subacromial injection 12/19/2024 Left subacromial injection 03/26/2025 Results - Imaging: A prior lumbar spine MRI showed a disc bulge and arthritis resulting in left S1 nerve root impingement. - Diagnostics: A recent test of the right leg was negative for blood clots. [facility] Medical History Anxiety Asthma Depressed Gout High blood pressure High cholesterol HIV (human immunodeficiency virus infection) Pain aggravated by anxiety Surgical History H/O foot surgery Family History Sister Colon cancer Intestines cancer Social History Alcohol intake: current Patient Tobacco Use Status: Never used Tobacco Review of Systems Narrative Review of Systems - Musculoskeletal: Reports back pain, shoulder pain, and right leg pain radiating from the groin. - Neurological: Reports right-sided leg pain. Denies current left-sided leg pain. Physical Exam Exam Exam: Physical Exam Cervical Spine: Examination of the cervical spine, he is tender left upper trapezius to palpation. He has limited range of motion at end range in extension lateral rotation to the left. Special Tests: Axial Compression test: Negative Spurlings test: Negative Lhermitte's sign is Negative Upper Extremities: Full range of motion bilateral upper extremities. He had positive Neer testing. Full range of motion of his elbow wrist and hand. 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 Neuro: Sensation: Intact to upper extremities bilateral to light touch Strength C5 (Elbow Flexion): 5/5 on the left and 5/5 on the right. C6 (Elbow Ext): 5/5 on the left and 5/5 on the right. C7 (Elbow Ext): 5/5 on the left and 5/5 on the right. C8 (Finger Flex): 5/5 on the left and 5/5 on the right. T1 (Finger Abd/Add): 5/5 on the left and 5/5 on the right. DTR: C5 (Biceps): Left 2 Right 2 C6 (Brachioradialis): Left 1 Right 1 C7 (Triceps): Left 2 Right 2 Ronquillo sign: Negative No pathologic clonus. No involuntary movement. Lumbar Spine: Examination of his lumbar spine, there is no visible swelling or deformity. He is tender to the lower lumbar facets. He has full range of motion of his lumbar spine. He does have an increase in pain with facet loading. Special Tests: Lhermittes sign was negative Heel Toe walk is normal Left straight leg raise: Negative Right straight leg raise: Negative Special tests Zoey test is negative Ganslen's test is negative SI Joint compression test negative Ivory test negative Piriformis stretch is negative Lower Extremities: He has pain with external rotation and abduction of his right hip. Otherwise full range of motion. No calf pain or edema. Neuro: Sensation: Intact to lower extremities bilaterally Strength L2 (Psoas): 5/5 on the left and 5/5 on the right. L3 (Quads): 5/5 on the left and 5/5 on the right. L4 (Ant tibialis): 5/5 on the left and 5/5 on the right. L5 (EHL) 5/5 on the left and 5/5 on the right. S1 (Gastroc): 5/5 on the left and 5/5 on the right. DTR L4: (Patellar) Left 2 Right 2 S1: (Achilles) Left 2 Right 2 Babinski Downgoing No pathologic clonus. No involuntary movement. Vital Signs: BMI result Body Mass Index 33.2 Office Procedures AMB Shoulder Injection AMB Shoulder Injection Procedure Details: Left Subacromial injection Procedure: The patient was educated about risks, complications and benefits including but not limited to increased serum glucose, infection, nerve damage, bleeding, tendon/ligament damage and pain. We agree with a subacromial injection is the next best step in the treatment plan. Verbal consent was obtained. Using aseptic technique, the skin was cleansed with Betadine. Ethyl chloride was used to desensitize the skin. Using a posterior approach, 40 mg of Kenalog and 3 mL 2% lidocaine were injected using a 25-gauge inch and a half needle into the subacromial space. The patient tolerated the procedure well without immediate complication. Postinjection instructions were given. Shoulder Injection - : Left All charges added?: Procedure code (CPT) selection complete Office Meds Kenalog 40 mg/mL suspension for injection Performing Provider: CARLITOS Umana Performing Location: [facility] Administered by: CARLITOS Umana on 03/26/25 11:22 Dose Route Admin Location Dispensed Lot Number Expiration Date [facility] [employer] 40 mg intrabursal 1 mL [id number] [employer] Total Dispensed Waste 1 mL 0 % lidocaine (PF) 20 mg/mL (2 %) injection solution Performing Provider: CARLITOS Umana Performing Location: [facility] Administered by: CARLITOS Umana on 03/26/25 11:22 Dose Route Admin Location Dispensed Lot Number Expiration Date [facility] [employer] 60 mg intrabursal 5 mL [id number] [employer] Total Dispensed Waste 5 mL 40 % Assessment & Plan Assessment & Plan (1) Right hip pain: Code(s): M25.551 - Pain in right hip Category: Medical (2) Impingement syndrome of left shoulder: Code(s): M75.42 - Impingement syndrome of left shoulder Category: Medical (3) Lumbar radiculopathy: Code(s): M54.16 - Radiculopathy, lumbar region Category: Medical (4) Lumbar spondylosis: Code(s): M47.816 - Spondylosis without myelopathy or radiculopathy, lumbar region Category: Medical Plan Pain Management - Analgesia: Patient reports his current pain level is pretty bad. - Prior Interventions: He had a shoulder injection in December that provided temporary relief. - Current Medications: He is taking an anti-inflammatory medication, possibly diclofenac. Plan Patient was informed and verbally consented to the use of an ambient scribe for clinic note documentation during this visit. 1. Left Shoulder Pain The patient has chronic left shoulder pain that was temporarily relieved by a prior injection. He consented to and received a repeat injection in the left shoulder during the visit. 2. Right Leg Pain, Right Hip Pain The patient presents with right leg pain radiating from the groin, which is inconsistent with lumbar MRI findings of left-sided nerve impingement. Physical examination elicited right groin pain with hip movement, suggesting a possible hip etiology. An X-ray of the right hip will be ordered to assess for arthritis or other pathology. The patient will follow up in one month to review the results. 3. Chronic Pain The patient reports significant, generalized pain. A new anti-inflammatory medication was prescribed, to be taken twice daily with food, to help manage his symptoms. 4. Lumbar Disc Disease The patient's prior MRI shows lumbar disc disease and arthritis causing left S1 nerve root impingement. This finding is noted but is not considered the source of his current right-sided symptoms and is therefore considered inactive. Discussion Notes I explained to the patient that his lumbar MRI showed a disc bulge and arthritis that was compressing the nerve on the left side, which would account for his prior left leg pain but not his current right leg pain. Given the discrepancy, I recommended an X-ray of his right hip to investigate for another cause of his pain, such as arthritis. We discussed repeating the injection in his left shoulder, which he agreed to. I obtained consent after reviewing the risks, including infection, nerve damage, and bleeding. I also mentioned that the steroid could temporarily increase his blood sugar, though this is less likely as he is not diabetic. I prescribed a new anti-inflammatory medication to be taken twice a day for his pain. I advised him to make a follow-up appointment in one month to review the results of his hip X-ray and assess his progress. Patient Instructions - An order has been placed for an X-ray of your right hip. Please go to a facility of your choice to have this done. - A new anti-inflammatory prescription was sent to your pharmacy. Take one pill twice a day with food. - You received an injection in your left shoulder today for pain. - Please schedule a follow-up appointment in one month to review your X-ray results. Orders: Orders AMB Shoulder Injection Today M25.551 - Pain in right hip, M75.42 - Impingement syndrome of left shoulder XR hip RT min 2V Today M16.10 - Unilateral primary osteoarthritis, unspecified hip Medications: New celecoxib (Celebrex) 100 mg PO BID 60 caps 2RF 30 days M25.551 - Pain in right hip Coding Level of Care Code Est Pt Level 4 (60692) Diagnoses Right hip pain M25.551 Impingement syndrome of left shoulder M75.42 Lumbar radiculopathy M54.16 Lumbar spondylosis M47.816 CPT Codes AMB Shoulder Injection - Hip/Bursa Injection - : Left ([id number])
[2025-03-26 09:08] VITALS: BMI 33.2
== END 2025-03-26 09:29 | disposition home or self-care (01) ==
LOC: HO.HPHYS 08:34
PROVIDERS: PCP Physician Assistant; Visit Provider Physician Assistant
DX: M25.551 Pain in right hip (principal); M75.42 Impingement syndrome of left shoulder; M54.16 Radiculopathy, lumbar region; M47.816 Spondylosis without myelopathy or radiculopathy, lumbar region
CPT/HCPCS: 20610; 99214

== ENCOUNTER → 2025-03-26 08:33 | Outpatient (BNVA) | payer MEDICAID, SELFPAY | PROVIDERS: PCP Physician Assistant; Visit Provider Physician Assistant | DX: G89.29 Other chronic pain (principal); M75.42 Impingement syndrome of left shoulder; M25.551 Pain in right hip; M47.26 Other spondylosis with radiculopathy, lumbar region | CPT/HCPCS: 20610; 99212; J2003; J3301 ==